=== PATIENT | female | born 1970 | race Caucasian/White ===

== ENCOUNTER 2024-12-03 18:10 | Outpatient (CLI) | payer OTHER, SELFPAY ==
--- NOTE | 2024-12-03 18:16 | XRR_ITS ---
PROCEDURE INFORMATION: Exam: XR Abdomen Exam date and time: 12/03/2024 6:39 PM Age: 54 years old Clinical indication: Palpable mass to umbilical area; Epigastric pain/ acid reflux; Abdominal pain; Constipation; HX umbilical hernia repair x 2 TECHNIQUE: Imaging protocol: Radiologic exam of the abdomen. Views: Frontal supine view of the abdomen. 1 View. COMPARISON: No relevant prior studies available. FINDINGS: Gastrointestinal tract: There is excessive colonic stool content. Consistent with constipation. Bones/joints: Unremarkable. XR/XR KUB [id number] IMPRESSION: There is excessive colonic stool content. Consistent with constipation.
== END 2024-12-03 18:11 | disposition home or self-care (01) ==
PROVIDERS: Family Provider Internal Medicine; PCP Internal Medicine; Visit Provider Registered Nurse Neonatal Intensive Care
DX: R10.9 Unspecified abdominal pain (principal); R93.89 Abnormal findings on diagnostic imaging of other specified body structures
CPT/HCPCS: 74018

== ENCOUNTER → 2025-02-08 09:37 | Outpatient (BNVA) | payer OTHER, SELFPAY | PROVIDERS: PCP Family Medicine; Visit Provider Family Medicine | DX: Z00.00 Encounter for general adult medical examination without abnormal findings (principal) | CPT/HCPCS: 80053; 80061; 84443; 85025 ==

== ENCOUNTER → 2025-03-05 16:21 | Outpatient (BNVA) | payer OTHER, SELFPAY | PROVIDERS: PCP Family Medicine; Visit Provider Family Medicine | DX: Z12.4 Encounter for screening for malignant neoplasm of cervix (principal) | CPT/HCPCS: 87624 ==

== ENCOUNTER 2025-03-13 07:55 | Day surgery (SDC) | payer OTHER, SELFPAY ==
[2025-03-13 08:15] VITALS: PULSE 76; RESP 18; TEMP 36.3; O2SAT 96; BMI 25.7
[2025-03-13 08:25] VITALS: BP 158/103
[2025-03-13] MEDS: sodium chloride 0.9% 1,000 ML 15 ML IV (08:25)
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
[2025-03-13 09:19] VITALS: BP 113/66; PULSE 60; RESP 18; TEMP 36.2; O2SAT 98
[2025-03-13 09:31] VITALS: BP 126/88; PULSE 68; RESP 18; O2SAT 99
[2025-03-13 09:46] VITALS: BP 139/84; PULSE 64; RESP 18; O2SAT 95
--- NOTE | 2025-03-13 09:50 | ANE.PACU2 ---
Inpatient post-anesthesia follow up: Airway intact: Yes Vital signs: Temperature 97.2 F Pulse Rate 64 Respiratory Rate 18 Blood Pressure 139/84 Pulse Oximetry 95 Oxygen Delivery Me thod Room Air Oxygen Flow Rate Fraction of Inspir ed Oxygen Hydration adequate: Yes Nausea and vomiting: No Pain level: 1 Mental status: Baseline
== END 2025-03-13 09:51 | disposition home or self-care (01) ==
PROVIDERS: PCP Family Medicine; Visit Provider Student in an Organized Health Care Education/Training Program
PROC: 0DJD8ZZ Inspection of Lower Intestinal Tract, Via Natural or Artificial Opening Endoscopic (ICD-10-PCS; CPT 45378; principal; 2025-03-13 09:00)
DX: Z12.11 Encounter for screening for malignant neoplasm of colon (principal); K57.30 Diverticulosis of large intestine without perforation or abscess without bleeding; J44.9 Chronic obstructive pulmonary disease, unspecified; K21.9 Gastro-esophageal reflux disease without esophagitis; E78.5 Hyperlipidemia, unspecified; F43.10 Post-traumatic stress disorder, unspecified; M79.7 Fibromyalgia; M19.90 Unspecified osteoarthritis, unspecified site; F17.200 Nicotine dependence, unspecified, uncomplicated; Z88.8 Allergy status to other drugs, medicaments and biological substances
CPT/HCPCS: 45378; J2704; J7030

== ENCOUNTER 2025-06-17 10:14 | Inpatient (IN) | payer OTHER, SELFPAY ==
[2025-06-17] VITALS (14 sets, daily range): BP systolic 109–175; BP diastolic 69–90; PULSE 55–76; RESP 15–20; TEMP 36.3–36.6; O2SAT 95–100; BMI 23.9
--- NOTE | 2025-06-17 10:18 | XRR_ITS ---
PROCEDURE INFORMATION: Exam: XR Chest Exam date and time: 06/17/2025 10:44 AM Age: 55 years old Clinical indication: Pain; Chest pressure; Additional info: Chest pain TECHNIQUE: Imaging protocol: Radiologic exam of the chest. Views: 1 view. COMPARISON: CR XR KUB [id number] 12/03/2024 6:39 PM FINDINGS: Lungs: Small linear opacity in the right mid chest, favored to represent subsegmental atelectasis. Minimal non consolidative infiltrate would be considered less likely. No consolidation. Pleural spaces: No pneumothorax. No significant pleural effusion. Heart/Mediastinum: The cardiac silhouette is normal in size. Bones/joints: There is no acute osseous abnormality. Focus of calcific tendinosis adjacent to the right proximal humerus. XR/XR chest 1V portable [id number] IMPRESSION: Small linear opacity in the right mid chest, favored to represent subsegmental atelectasis. Minimal non consolidative infiltrate would be considered less likely. No consolidation. Correlate with clinical presentation.
--- NOTE | 2025-06-17 10:20 | ECG_ITS ---
[facility] Date: 2025-06-17 Pat Name: Bisi Gentile Department: Room: Gender: Female Product Introduction Manager: : 1970 Requested By: Catarina Veras Order Number: [id number] Davida MD: Jesse South M.D. Measurements Intervals [place] Rate: 67 P: 31 HI: 155 QRS: 33 QRSD: 78 T: 28 QT: 380 QTc: 404 Interpretive Statements SINUS RHYTHM POSSIBLE OLD SEPTAL INFARCTION No previous ECG available for comparison Electronically Signed On 06-17-2025 21:54:37 CDT by Jesse South M.D. [email or web address] [id number]
--- OUTSIDE RECORDS SUMMARY | 2025-06-17 10:20 | XMS_ITS | Encounter Summary ---
Author Organization [facility] Address [address] [place] [address] Care Team Providers Care Corporate Intern Name Role Phone Ekaterina Ryan DO Primary Care Provider Encounter Details Date Type Department Care Team (Late st Contact Info) Description 10/24/2007 Outpatient Historical [facility] Family Medicine- [place] [address] [place] [address] Kyle Farmer MD [address] [place] [address] Social History Tobacco Use Types Packs/Day Years Used Date Smoking Tobacco: Never Assessed Comments Unknown Sex and Gender Information Value Date Recorded Sex Assigned at Not on file Legal Sex Female 5:00 AM DIRECTOR OF ESTATE Gender Identity Not on file Sexual Orientation Not on file documented as of this encounter Plan of Treatment Not on file documented as of this encounter Visit Diagnoses Not on filedocumented in this encounter Care Teams Corporate Intern Relationship Specialty Start Date End Date Ekaterina Ryan DO [address] [place] [address] PCP - General Family Practice 09/30/10 documented as of this encounter
--- OUTSIDE RECORDS SUMMARY | 2025-06-17 10:20 | XMS_ITS | Encounter Summary ---
Author Organization [employer] Address [address] [place] [address] Care Team Providers Care Rug Drying Machine Operator Name Role Phone Ekaterina Ryan DO Primary Care Provider Encounter Details Date Type Department Care Team (Latest Contact Info) Description 12/12/2003 Outpatient Historical [facility] Kwaku Mosley MD [address] [place], [place] [address] DIARRHEA NOS (Primary Dx) Social History Tobacco Use Types Packs/Day Years Used Date Smoking Tobacco: Never Assessed Comments Unknown Sex and Gender Information Value Date Recorded Sex Assigned at Not on file Legal Sex Female 5:00 AM CASTING ROOM OPERATOR Gender Identity Not on file Sexual Orientation Not on file documented as of this encounter Plan of Treatment Not on file documented as of this encounter Visit Diagnoses Diagnosis Diarrhea- Primary documented in this encounter Care Teams Rug Drying Machine Operator Relationship Specialty Start Date End Date Ekaterina Ryan DO [address] [place] [address] PCP - General Family Practice 09/30/10 documented as of this encounter
--- OUTSIDE RECORDS SUMMARY | 2025-06-17 10:20 | XMS_ITS | Encounter Summary ---
Author Organization [facility] Address [address] [place] [address] Care Team Providers Care Button Sewer Hand Name Role Phone Ekaterina Ryan DO Primary Care Provider Encounter Details Date Type Department Care Team (Latest Contact Info) Description 12/02/2005 Outpatient Historical [facility] General Surgery [address] [address] [place] [address] Terry Bentley MD [address] [facility], [address] [place], [place] [address] SURGERY FOLLOWUP NOS (Primary Dx) Social History Tobacco Use Types Packs/Day Years Used Date Smoking Tobacco: Never Assessed Comments Unknown Sex and Gender Information Value Date Recorded Sex Assigned at Not on file Legal Sex Female 5:00 AM SPORTS SPECIALIST Gender Identity Not on file Sexual Orientation Not on file documented as of this encounter Plan of Treatment Not on file documented as of this encounter Visit Diagnoses Diagnosis Follow-up examination, following unspecified surgery- Primary documented in this encounter Care Teams Button Sewer Hand Relationship Specialty Start Date End Date Ekaterina Ryan DO [address] [place] [phone] PCP - General Family Practice 09/30/10 documented as of this encounter
--- OUTSIDE RECORDS SUMMARY | 2025-06-17 10:20 | XMS_ITS | Encounter Summary ---
Author Organization [facility] Address [address] [place] [address] Care Team Providers Care Canine Deputy Name Role Phone Ekaterina Ryan DO Primary Care Provider Encounter Details Date Type Department Care Team (Latest Contact Info) Description 06/16/2006 Outpatient Historical [facility] Medicine- [place] [address] [place] [address] Simone Cruz MD NO ADDRESS ON FILE Other Symptoms Involving Abdomen and Pelvis (Primary Dx); Abdominal Pain, Unspecified Site Social History Tobacco Use Types Packs/Day Years Used Date Smoking Tobacco: Never Assessed Comments Unknown Sex and Gender Information Value Date Recorded Sex Assigned at Not on file Legal Sex Female 5:00 AM HAND RIVETER Gender Identity Not on file Sexual Orientation Not on file documented as of this encounter Plan of Treatment Not on file documented as of this encounter Visit Diagnoses Diagnosis Other symptoms involving abdomen and pelvis(789.9)- Primary Other symptoms involving abdomen and pelvis Abdominal pain, unspecified site documented in this encounter Care Teams Canine Deputy Relationship Specialty Start Date End Date Ekaterina Ryan DO [address] [facility] [place] [address] PCP - General Family Practice 09/30/10 documented as of this encounter
--- OUTSIDE RECORDS SUMMARY | 2025-06-17 10:20 | XMS_ITS | Encounter Summary ---
Author Organization [facility] Address [address] [place] [address] Care Team Providers Care Fender Repairer Name Role Phone Ekaterina Ryan DO Primary Care Provider [phone] Encounter Details Date Type Department Care Team (Latest Contact Info) Description 06/09/2005 Outpatient Historical [facility] General Surgery [address] [address] [place] [address] Terry Bentley MD [address] [facility], [address] [place], [place] [address] SURGERY FOLLOWUP NOS (Primary Dx) Social History Tobacco Use Types Packs/Day Years Used Date Smoking Tobacco: Never Assessed Comments Unknown Sex and Gender Information Value Date Recorded Sex Assigned at Not on file Legal Sex Female 5:00 AM PROGRAM OR PROJECT ADMINISTRATOR Gender Identity Not on file Sexual Orientation Not on file documented as of this encounter Plan of Treatment Not on file documented as of this encounter Visit Diagnoses Diagnosis Follow-up examination, following unspecified surgery- Primary documented in this encounter Care Teams Fender Repairer Relationship Specialty Start Date End Date Ekaterina Ryan DO [address] [place] [address] PCP - General Family Practice 09/30/10 documented as of this encounter
--- OUTSIDE RECORDS SUMMARY | 2025-06-17 10:20 | XMS_ITS | Encounter Summary ---
Author Organization [facility] Address [address] [place] [address] Care Team Providers Care Jig Builder Name Role Phone Ekaterina Ryan DO Primary Care Provider Encounter Details Date Type Department Care Team (Latest Contact Info) Description 08/25/2005 Outpatient Historical [facility] Medicine- [place] [address] [place] [address] Terry Bhakta MD [address] [place] [phone] SPASM OF MUSCLE (Primary Dx) Social History Tobacco Use Types Packs/Day Years Used Date Smoking Tobacco: Never Assessed Comments Unknown Sex and Gender Information Value Date Recorded Sex Assigned at Not on file Legal Sex Female 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
--- OUTSIDE RECORDS SUMMARY | 2025-06-17 10:20 | XMS_ITS | Encounter Summary ---
Author Organization [facility] Address [address] [place] [address] Care Team Providers Care Set Up And Lay Out Inspector Name Role Phone Ekaterina Ryan DO Primary Care Provider Encounter Details Date Type Department Care Team (Latest Contact Info) Description 12/07/2003 Outpatient Historical [facility] Kwaku Mosley MD [address] [place] [address] DIARRHEA NOS (Primary Dx); TOBACCO USE DISORDER Social History Tobacco Use Types Packs/Day Years Used Date Smoking Tobacco: Never Assessed Comments Unknown Sex and Gender Information Value Date Recorded Sex Assigned at Not on file Legal Sex Female 5:00 AM PRIMARY CARE PHYSICIAN Gender Identity Not on file Sexual Orientation Not on file documented as of this encounter Plan of Treatment Not on file documented as of this encounter Visit Diagnoses Diagnosis Diarrhea- Primary Tobacco use disorder documented in this encounter Care Teams Set Up And Lay Out Inspector Relationship Specialty Start Date End Date Ekaterina Ryan DO [address] [place] [address] PCP - General Family Practice 09/30/10 documented as of this encounter
--- OUTSIDE RECORDS SUMMARY | 2025-06-17 10:20 | XMS_ITS | Encounter Summary ---
Author Organization [facility] Address [address] [place] [address] Care Team Providers Care Special Education Classroom Aide Name Role Phone Ekaterina Ryan DO Primary Care Provider [phone] Encounter Details Date Type Department Care Team (Late st Contact Info) Description 11/03/2007 Outpatient Historical [facility] Family Medicine- [place] [address] [place] [address] Jayson Espinoza, RECEIVING TELLER [address] [place] [address] Social History Tobacco Use Types Packs/Day Years Used Date Smoking Tobacco: Never Assessed Comments Unknown Sex and Gender Information Value Date Recorded Sex Assigned at Not on file Legal Sex Female 5:00 AM ROVING DEPARTMENT SUPERVISOR Gender Identity Not on file Sexual Orientation Not on file documented as of this encounter Plan of Treatment Not on file documented as of this encounter Visit Diagnoses Not on filedocumented in this encounter Care Teams Special Education Classroom Aide Relationship Specialty Start Date End Date Ekaterina Ryan DO [address] [place] [address] PCP - General Family Practice 09/30/10 documented as of this encounter
--- OUTSIDE RECORDS SUMMARY | 2025-06-17 10:20 | XMS_ITS | Encounter Summary ---
Author Organization [facility] Address [address] [place] [address] Care Team Providers Care Jewelry Casting Model Maker Name Role Phone Ekaterina Ryan DO Primary Care Provider Encounter Details Date Type Department Care Team (Latest Contact Info) Description 02/03/2006 Outpatient Historical [facility] Medicine- [place] [address] [place] [address] Lane George, HOSPICE RN [address] [place] [address] Abdominal Pain, Unspecified Site (Primary Dx); Hepatomegaly; Other Malaise and Fatigue Social History Tobacco Use Types Packs/Day Years Used Date Smoking Tobacco: Never Assessed Comments Unknown Sex and Gender Information Value Date Recorded Sex Assigned at Not on file Legal Sex Female 5:00 AM ASSISTANT CONSTRUCTION SUPERINTENDENT Gender Identity Not on file Sexual Orientation Not on file documented as of this encounter Plan of Treatment Not on file documented as of this encounter Visit Diagnoses Diagnosis Abdominal pain, unspecified site- Primary Hepatomegaly Other malaise and fatigue documented in this encounter Care Teams Jewelry Casting Model Maker Relationship Specialty Start Date End Date Ekaterina Ryan DO [address] [place] [address] PCP - General Family Practice 09/30/10 documented as of this encounter
--- OUTSIDE RECORDS SUMMARY | 2025-06-17 10:20 | XMS_ITS | Encounter Summary ---
Author Organization [facility] Address [address] [place] [address] Care Team Providers Care Care Services Manager Name Role Phone Ekaterina Ryan DO Primary Care Provider Encounter Details Date Type Department Care Team (Latest Contact Info) Description 11/04/2005 Outpatient Historical [facility] General Surgery [address] [address] [place] [address] [place] [address] [facility] [address] [place] [address] ABDOMINAL PAIN EPIGASTRIC (Primary Dx) Social History Tobacco Use Types Packs/Day Years Used Date Smoking Tobacco: Never Assessed Comments Unknown Sex and Gender Information Value Date Recorded Sex Assigned at Not on file Legal Sex Female 5:00 AM STRUCTURAL IRON WORKER Gender Identity Not on file Sexual Orientation Not on file documented as of this encounter Plan of Treatment Not on file documented as of this encounter Visit Diagnoses Diagnosis Abdominal pain, epigastric- Primary documented in this encounter Care Teams Care Services Manager Relationship Specialty Start Date End Date Ekaterina Ryan DO [address] [place] [address] PCP - General Family Practice 09/30/10 documented as of this encounter
--- OUTSIDE RECORDS SUMMARY | 2025-06-17 10:20 | XMS_ITS | Encounter Summary ---
Author Organization [facility] Address [address] [place] [address] Care Team Providers Care Loading Checker Name Role Phone Ektaerina Ryan DO Primary Care Provider Encounter Details Date Type Department Care Team (Latest Contact Info) Description 04/11/2007 Outpatient Historical [facility] Orthopedics- [address] [place] [phone] Carlos Paige MD NO ADDRESS ON FILE Cervicalgia (Primary Dx); Degeneration of Cervical Intervertebral Disc; Lumbago; Pain in Joint, Shoulder Region Social History Tobacco Use Types Packs/Day Years Used Date Smoking Tobacco: Never Assessed Comments Unknown Sex and Gender Information Value Date Recorded Sex Assigned at Not on file Legal Sex Female 5:00 AM BIODIESEL TECHNOLOGY MANAGER Gender Identity Not on file Sexual Orientation Not on file documented as of this encounter Plan of Treatment Not on file documented as of this encounter Visit Diagnoses Diagnosis Cervicalgia- Primary Degeneration of cervical intervertebral disc Lumbago Pain in joint, shoulder region documented in this encounter Care Teams Loading Checker Relationship Specialty Start Date End Date Ekaterina Ryan DO [address] [place] [address] PCP - General Family Practice 09/30/10 documented as of this encounter
--- OUTSIDE RECORDS SUMMARY | 2025-06-17 10:20 | XMS_ITS | Encounter Summary ---
Author Organization [facility] Address [address] [place] [address] Care Team Providers Care Concert Or Lecture Hall Manager Name Role Phone Ekaterina Ryan DO Primary Care Provider [phone] Encounter Details Date Type Department Care Team (Latest Contact Info) Description 11/27/2003 Outpatient Historical [facility] Medicine- [place] [address] [place] [address] Terry Bhakta MD [address] [place] [phone] ABDOMINAL PAIN UNSPEC SITE (Primary Dx) Social History Tobacco Use Types Packs/Day Years Used Date Smoking Tobacco: Never Assessed Comments Unknown Sex and Gender Information Value Date Recorded Sex Assigned at Not on file Legal Sex Female 5:00 AM FINISHING ROOM OPERATOR Gender Identity Not on file Sexual Orientation Not on file documented as of this encounter Plan of Treatment Not on file documented as of this encounter Visit Diagnoses Diagnosis Abdominal pain, unspecified site- Primary documented in this encounter Care Teams Concert Or Lecture Hall Manager Relationship Specialty Start Date End Date Ekaterina Ryan DO [address] [facility] [place] [address] PCP - General Family Practice 09/30/10 documented as of this encounter
--- OUTSIDE RECORDS SUMMARY | 2025-06-17 10:20 | XMS_ITS | Encounter Summary ---
Author Organization [facility] Address [address] [place] [address] Care Team Providers Care Dining Car Conductor Name Role Phone Ekaterina Ryan DO Primary Care Provider Encounter Details Date Type Department Care Team (Latest Contact Info) Description 06/03/2005 Outpatient Historical [facility] General Surgery [address] [address] [address] [place] [address] Terry Bentley MD [address] [facility], [address] [place], [place] [address] Umbilical hernia (Primary Dx) Social History Tobacco Use Types Packs/Day Years Used Date Smoking Tobacco: Never Assessed Comments Unknown Sex and Gender Information Value Date Recorded Sex Assigned at Not on file 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
--- OUTSIDE RECORDS SUMMARY | 2025-06-17 10:20 | XMS_ITS | Encounter Summary ---
Author Organization [facility] Address [address] [place] [address] Care Team Providers Care Tree Farmer Name Role Phone Ekaterina Ryan DO Primary Care Provider Encounter Details Date Type Department Care Team (Latest Contact Info) Description 09/28/2005 Outpatient Historical [facility] Medicine- [place] [address] [place] [address] Terry Bhakta MD [address] [place] [phone] FEMALE GENITAL SYMPTOMS NOS (Primary Dx) Social History Tobacco Use Types Packs/Day Years Used Date Smoking Tobacco: Never Assessed Comments Unknown Sex and Gender Information Value Date Recorded Sex Assigned at Not on file 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
--- OUTSIDE RECORDS SUMMARY | 2025-06-17 10:20 | XMS_ITS | Encounter Summary ---
Author Organization [facility] Address [address] [place] [address] Care Team Providers Care Felt Tipping Machine Tender Name Role Phone Ekaterina Ryan Primary Care Provider [phone] Encounter Details Date Type Department Care Team (Latest Contact Info) Description 05/29/2005 Outpatient Historical [facility] [address] [place] [address] Terry Bhakta MD [address] [place] [address] ABDOMINAL PAIN UNSPEC SITE (Primary Dx) Social History Tobacco Use Types Packs/Day Years Used Date Smoking Tobacco: Never Assessed Comments Unknown Sex and Gender Information Value Date Recorded Sex Assigned at Not on file 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 Gender Identity Not on file Sexual Orientation Not on file documented as of this encounter Plan of Treatment Not on file documented as of this encounter Procedures Procedure Name Priority Date/Time Associated Diagnosis Comments COMPREHENSIVE METABOLIC PANEL Routine 05/29/2005 1:00 PM CDT documented in this encounter Results * COMPREHENSIVE METABOLIC PANEL (05/29/2005 1:00 PM CDT) GLUCOSE 92 70 - 110 mg/dL INTERFACE SYSTEM BUN 7 7 - 17 mg/dL INTERFACE SYSTEM CREATININE 0.7 0.7 - 1.2 mg/dL INTERFACE SYSTEM SODIUM 141 136 - 145 mEq/L INTERFACE SYSTEM POTASSIUM 3.7 3.5 - 5.0 mEq/L INTERFACE SYSTEM CO2 22 22 - 32 mmol/l INTERFACE SYSTEM CHLORIDE 109 95 - 110 mEq/L INTERFACE SYSTEM CALCIUM 9.3 8.4 - 10.5 mg/dL INTERFACE SYSTEM ALKALINE PHOSPHATASE 76 38 - 126 IU/L INTERFACE SYSTEM TOTAL PROTEIN 7.5 6.3 - 8.2 g/dL INTERFACE SYSTEM ALBUMIN 4.1 3.5 - 5.0 g/dL INTERFACE SYSTEM AST 27 14 - 36 IU/L INTERFACE SYSTEM ALT 23 9 - 52 IU/L INTERFACE SYSTEM BILIRUBIN TOTAL 0.8 0.2 - 1.4 mg/dL INTERFACE SYSTEM GLOBULIN (CALC) 3.4 2.4 - 3.9 g/dL INTERFACE SYSTEM ANION GAP 14 9 - 20 mEq/L INTERFACE SYSTEM ALBUMIN/GLOBULIN RATIO 1.2 1.0 - 2.3 INTERFACE SYSTEM OSMOLALITY, CALCULATED 287 275 - 295 mOsm/Kg INTERFACE SYSTEM 05/29/2005 1:00 PM CDT us Terry Bhakta MD CHEMISTRY ORDERABLES Final Res ult INTERFACE SYSTEM Refer to clinic/hospital department documented in this encounter Visit Diagnoses Diagnosis Abdominal pain, unspecified site- Primary documented in this encounter Care Teams Felt Tipping Machine Tender Relationship Specialty Start Date End Date Ekaterina Ryan DO [address] [place] [address] PCP - General Family Practice 09/30/10 documented as of this encounter
--- OUTSIDE RECORDS SUMMARY | 2025-06-17 10:20 | XMS_ITS | Encounter Summary ---
Author Organization [facility] Address [address] [place] [address] Care Team Providers Care Die Stamping Press Operator Name Role Phone Ekaterina Ryan DO Primary Care Provider Encounter Details Date Type Department Care Team (Latest Contact Info) Description 01/08/2004 Outpatient Historical [facility] Medicine- [place] [address] [place] [address] Terry Bhakta MD [address] [place] [phone] PYELONEPHRITIS NOS (Primary Dx) Social History Tobacco Use Types Packs/Day Years Used Date Smoking Tobacco: Never Assessed Comments Unknown Sex and Gender Information Value Date Recorded Sex Assigned at Not on file 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
--- OUTSIDE RECORDS SUMMARY | 2025-06-17 10:20 | XMS_ITS | Encounter Summary ---
Author Organization [facility] Address [address] [place] [address] Care Team Providers Care Clinical Trial Data Manager Name Role Phone Ekaterina Ryan DO Primary Care Provider Encounter Details Date Type Department Care Team (Latest Contact Info) Description 06/24/2005 Outpatient Historical [facility] General Surgery [address] [address] [address] [place] [address] Terry [place]ley MD [address] [facility], [address] [place], [place] [address] SURGERY FOLLOWUP NOS (Primary Dx) Social History Tobacco Use Types Packs/Day Years Used Date Smoking Tobacco: Never Assessed Comments Unknown Sex and Gender Information Value Date Recorded Sex Assigned at Not on file 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
--- OUTSIDE RECORDS SUMMARY | 2025-06-17 10:20 | XMS_ITS | Clinical Summary ---
Author Organization [facility] Address [address] [facility] [place] [address] Care Team Providers Care Centerless Grinder Tender Name Role Phone ConnorEkaterina bertrand Wilber LEMONS Primary Care Provider Allergies Active Allergy Reactions Criticality Noted Date Comments Tetanus Toxoid Swelling High 12/19/2018 Topiramate Anaphylaxis High 12/19/2018 Medications albuterol HFA 90 mcg inhalerIndication s:COPD with exacerbation ([facility]) INHALE 2 PUFFS BY MOUTH EVERY 6 HOURS NEEDED FOR SHORTNESS OF BREATH 8.5 Gram 11 1 Active fluconazole (DIFLUCAN) 100 mg tabletIndications :Antibiotic-induc ed yeast infection Take 1 Tablet (100 mg) by mouth daily. 2 Tablet 1 1 Active fluticasone propionate (FLONASE) 50 mcg/spray [place], Suspension nasal inhalerIndication s:Middle ear effusion, bilateral,Acute non-recurrent pansinusitis Administer 2 Sprays in each nostril daily. 16 Gram 1 Active Active Problems Problem Noted Date Diagnosed Date COPD with exacerbation 01/11/2019 Family History Medical History Relation Name Comments Heart Disease Brother 1 Heart Disease Brother 2 Heart Disease Brother 3 Heart Attack Father Alzheimer's Disease Maternal Grandmother No Known Problems Mother Unknown Sister 2 Relation Name Status Comments Brother 1 Brother 2 Brother 3 Alive Father Maternal Grandmother Mother Alive Sister 1 Alive Sister 2 Alive Sister 3 Alive Sister 4 Alive Social History Tobacco Use Types Packs/Day Years Used Date Smoking Tobacco: Former Cigarettes Smokeless Tobacco: Never Tobacco Cessation:Counseling Given: Yes Alcohol Use Standard Drinks/Week Comments No 0 (1 standard drink = 0.6 oz pur e alcohol) Comments No Sex and Gender Information Value Date Recorded Sex Assigned at Not on file 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 Gender Identity Not on file Sexual Orientation Not on file Last Filed Vital Signs Vital Sign Reading Time Taken Comments Blood Pressure 120/66 03/14/2021 11:16 AM CDT Pulse 87 03/14/2021 11:16 AM CDT Temperature 36.3 C (97.4 F) 03/14/2021 11:16 AM CDT Respiratory Rate 18 06/21/2019 2:03 PM CDT Oxygen Saturation 97% 03/14/2021 11:16 AM CDT Inhaled Oxygen Concentration - - Weight 60.3 kg (133 lb) 03/14/2021 11:16 AM CDT Height 157.5 cm (5' 2 ) 03/14/2021 11:16 AM CDT Body Mass Index 24.33 03/14/2021 11:16 AM CDT Plan of Treatment Health Maintenance Due Date Last Done Comments Pre-Diabetes and Diabetes Screening 1970 DTAP/TDAP/TD VACCINES (1 - Tdap) 1991 HEPATITIS B VACCINES (1 of 3 - 19+ 3-dose series) 03/19 HPV/Cotest (21-29) 1993 CERVICAL CANCER SCREENING 2002 HPV/Cotest (30-65) 2002 PAP SMEAR 2002 BREAST CANCER SCREENING 2012 COLORECTAL SCREENING 2017 Colorectal Cancer Screening 2017 FIT-DNA Q 3 years 2017 FIT/FOBT Q 1 year 2017 Flex Sig/CT Colonography Q 5 years 2017 ZOSTER VACCINE (1 of 2) 2022 INFLUENZA VACCINE (#1) 2025 03/07/2021 Care Teams Centerless Grinder Tender Relationship Specialty Start Date End Date Ekaterina Ryan DO [address] [place] [address] PCP - General Family Practice 09/30/10
--- OUTSIDE RECORDS SUMMARY | 2025-06-17 10:20 | XMS_ITS | Encounter Summary ---
Author Organization [email or web address] Address [address] [place] [address] Care Team Providers Care Keller Machine Operator Name Role Phone Ekaterina Ryan DO Primary Care Provider Encounter Details Date Type Department Care Team (Late st Contact Info) Description 11/11/2005 Outpatient Historical [facility] McTerry fields MD [address] [facility], [address] [place], [place] [address] Social History Tobacco Use Types Packs/Day Years Used Date Smoking Tobacco: Never Assessed Comments Unknown Sex and Gender Information Value Date Recorded Sex Assigned at Not on file Legal Sex Female 5:00 AM QC LAB TECHNICIAN Gender Identity Not on file Sexual Orientation Not on file documented as of this encounter Plan of Treatment Not on file documented as of this encounter Procedures Procedure Name Priority Date/Time Associated Diagnosis Comments CT ABDOMEN PELVIS W CONTRAST Routine 11/11/2005 8:45 AM QC LAB TECHNICIAN documented in this encounter Results * CT ABDOMEN PELVIS W CONTRAST (11/11/2005 8:45 AM QC LAB TECHNICIAN) Anatomical Region Laterality Modality Abdomen Other 11/11/2005 8:45 AM QC LAB TECHNICIAN Narrative 11/11/2005 8:45 AM QC LAB TECHNICIAN CT ABDOMEN AND PELVIS: 11-11-05 CLINICAL INFORMATION - Abdominal pain. FINDINGS: CT of the abdomen and pelvis was performed with administration of oral and intravenous contrast (125 ml of Optiray 320). No old studies are available for comparison at the time of review. There is probable fatty infiltration of the liver, diagnosis of limited specificity on contrast enhanced CT. The gallbladder, spleen, pancreas, adrenals, and kidneys are within normal limits. There is no evidence of adenopathy or ascites. Small uterine cyst is noted. The uterus is retroverted. The bladder is unremarkable. Sections through the lung bases demonstrate no significant pathology. Peripherally sclerotic low attenuation structure in the right femoral neck most likely represents an old pin tract from prior orthopedic hardware. Findings suggestive of fatty infiltration of the liver, diagnosis of limited specificity on contrast enhanced CT. Unenhanced CT or MRI of the liver could be performed for more specific assessment if clinically warranted. [facility] D: 11-11-05 0959 Dictated By: Rubin Chowdary M.D. Electronically Signed By: Rubin Chowdary M.D. Date Signed: 11/11/05 Procedure Note 09/05/2009 CT ABDOMEN AND PELVIS: 11-11-05 CLINICAL INFORMATION - Abdominal pain. FINDINGS: CT of the abdomen and pelvis was performed with administration of oral andintravenous contrast (125 ml of Optiray 320). No old studies are available for comparison at the timeof review. There is probable fatty infiltration of the liver, diagnosis of limitedspecificity on contrast enhanced CT. The gallbladder, spleen, pancreas, adrenals, and kidneys are withinnormal limits. There is no evidence of adenopathy or ascites. Small uterine cyst is noted. Theuterus is retroverted. The bladder is unremarkable. Sections through the lung bases demonstrate nosignificant pathology. Peripherally sclerotic low attenuation structure in the right femoral neck most likelyrepresents an old pin tract from prior orthopedic hardware. Findings suggestive of fatty infiltration of the liver, diagnosis oflimited specificity on contrast enhanced CT. Unenhanced CT or MRI of the liver could be performed formore specific assessment if clinically warranted. [facility] D: 11-11-05 0959 Dictated By: Rubin Chowdary M.D. Electronically Signed By: Rubin Chowdary M.D. Date Signed: 11/11/05 us Terry [place]ley MD CT ORDERABLES Final Result documented in this encounter Visit Diagnoses Not on filedocumented in this encounter Care Teams Keller Machine Operator Relationship Specialty Start Date End Date Ekaterina Ryan DO [address] [place] [phone] PCP - General Family Practice 09/30/10 documented as of this encounter
--- OUTSIDE RECORDS SUMMARY | 2025-06-17 10:20 | XMS_ITS | Encounter Summary ---
Author Organization [facility] Address [address] [place] [address] Care Team Providers Care Traveling Engineer Name Role Phone Ekaterina Ryan DO Primary Care Provider Encounter Details Date Type Department Care Team (Latest Contact Info) Description 07/07/2005 Outpatient Historical [facility] General Surgery [address] [address] [address] [place] [address] Terry [place]ley MD [address] [facility], [address] [place] [address] SURGERY FOLLOWUP NOS (Primary Dx) Social History Tobacco Use Types Packs/Day Years Used Date Smoking Tobacco: Never Assessed Comments Unknown Sex and Gender Information Value Date Recorded Sex Assigned at Not on file 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
--- OUTSIDE RECORDS SUMMARY | 2025-06-17 10:20 | XMS_ITS | Encounter Summary ---
Author Organization [facility] Address [address] [place] [address] Care Team Providers Care Fire Extinguisher Mechanic Name Role Phone Ekaterina Ryan DO Primary Care Provider Encounter Details Date Type Department Care Team (Latest Contact Info) Description 05/19/2006 Outpatient Historical [facility] Family Medicine- [place] [address] [place] [address] Simone Cruz MD NO ADDRESS ON FILE Inflam Disease of Breast (Primary Dx); Irregular Menstruation Social History Tobacco Use Types Packs/Day Years Used Date Smoking Tobacco: Never Assessed Comments Unknown Sex and Gender Information Value Date Recorded Sex Assigned at Not on file Legal Sex Female 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
--- OUTSIDE RECORDS SUMMARY | 2025-06-17 10:20 | XMS_ITS | Encounter Summary ---
Author Organization [facility] Address [address] [place] [address] Care Team Providers Care Motion Picture Camera Operator Name Role Phone Ekaterina Ryan DO Primary Care Provider Encounter Details Date Type Department Care Team (Latest Contact Info) Description 03/02/2006 Outpatient Historical [facility] Gen Spec Surg [address] [place] [address] Serge Flores MD [address] [place] [address] Umbilical Hernia (Primary Dx) Social History Tobacco Use Types Packs/Day Years Used Date Smoking Tobacco: Never Assessed Comments Unknown Sex and Gender Information Value Date Recorded Sex Assigned at Not on file Legal Sex Female 5:00 AM CHILD NEUROLOGIST Gender Identity Not on file Sexual Orientation Not on file documented as of this encounter Plan of Treatment Not on file documented as of this encounter Visit Diagnoses Diagnosis Umbilical hernia- Primary Umbilical hernia without mention of obstruction or gangrene documented in this encounter Care Teams Motion Picture Camera Operator Relationship Specialty Start Date End Date Ekaterina Ryan DO [address] [place] [address] PCP - General Family Practice 09/30/10 documented as of this encounter
--- OUTSIDE RECORDS SUMMARY | 2025-06-17 10:20 | XMS_ITS | Encounter Summary ---
Author Organization [facility] Address [address] [place] [address] Care Team Providers Care Brass Bobbin Winder Name Role Phone Ekaterina Ryan DO Primary Care Provider [phone] Encounter Details Date Type Department Care Team (Late st Contact Info) Description 11/10/2007 Outpatient Historical [facility] Family Medicine- [place] [address] [place] [address] Jayson Espinoza, BUSINESS CONTINUITY STRATEGY DIRECTOR [address] [place] [address] Social History Tobacco Use Types Packs/Day Years Used Date Smoking Tobacco: Never Assessed Comments Unknown Sex and Gender Information Value Date Recorded Sex Assigned at Not on file Legal Sex Female 5:00 AM HEARING EXAMINER Gender Identity Not on file Sexual Orientation Not on file documented as of this encounter Plan of Treatment Not on file documented as of this encounter Visit Diagnoses Not on filedocumented in this encounter Care Teams Brass Bobbin Winder Relationship Specialty Start Date End Date Ekaterina Ryan DO [address] [place] [address] PCP - General Family Practice 09/30/10 documented as of this encounter
--- OUTSIDE RECORDS SUMMARY | 2025-06-17 10:20 | XMS_ITS | Encounter Summary ---
Author Organization [facility] Address [address] [place] [address] Care Team Providers Care Instructor Ballroom Dancing Name Role Phone Ekaterina Ryan DO Primary Care Provider Encounter Details Date Type Department Care Team (Latest Contact Info) Description 12/28/2006 Outpatient Historical [facility] Family Medicine- [place] [address] [place] [address] Simone Cruz MD NO ADDRESS ON FILE Headache (Primary Dx) Social History Tobacco Use Types Packs/Day Years Used Date Smoking Tobacco: Never Assessed Comments Unknown Sex and Gender Information Value Date Recorded Sex Assigned at Not on file Legal Sex Female 5: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
--- OUTSIDE RECORDS SUMMARY | 2025-06-17 10:20 | XMS_ITS | Encounter Summary ---
Author Organization [facility] Address [address] [place] [address] Care Team Providers Care Umbrella Tipper Hand Name Role Phone Ekaterina Ryan DO Primary Care Provider Encounter Details Date Type Department Care Team (Latest Contact Info) Description 06/02/2005 Outpatient Historical [facility] General Surgery [address] [address] [address] [place] [address] Terry [place]ley MD [address] [facility], [address] [place], [place] [address] Umbilical hernia (Primary Dx) Social History Tobacco Use Types Packs/Day Years Used Date Smoking Tobacco: Never Assessed Comments Unknown Sex and Gender Information Value Date Recorded Sex Assigned at Not on file 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
--- OUTSIDE RECORDS SUMMARY | 2025-06-17 10:20 | XMS_ITS | Encounter Summary ---
Author Organization [facility] Address [address] [place] [address] Care Team Providers Care Turbine Inspector Name Role Phone Ekaterina Ryan DO Primary Care Provider Encounter Details Date Type Department Care Team (Latest Contact Info) Description 05/31/2006 Outpatient Historical [facility] Ophthalmology [address] [place] [phone] Khalif Fallon MD NO ADDRESS ON FILE Vitreous Degeneration (Primary Dx) Social History Tobacco Use Types Packs/Day Years Used Date Smoking Tobacco: Never Assessed Comments Unknown Sex and Gender Information Value Date Recorded Sex Assigned at Not on file Legal Sex Female 5:00 AM CREDIT ADMINISTRATION OFFICER Gender Identity Not on file Sexual Orientation Not on file documented as of this encounter Plan of Treatment Not on file documented as of this encounter Visit Diagnoses Diagnosis Vitreous degeneration- Primary documented in this encounter Care Teams Turbine Inspector Relationship Specialty Start Date End Date Ekaterina Ryan DO [address] [place] [address] PCP - General Family Practice 09/30/10 documented as of this encounter
--- OUTSIDE RECORDS SUMMARY | 2025-06-17 10:20 | XMS_ITS | Encounter Summary ---
Author Organization [facility] Address [address] [place] [address] Care Team Providers Care Drywaller Name Role Phone Ekaterina Ryan DO Primary Care Provider Encounter Details Date Type Department Care Team (Latest Contact Info) Description 01/08/2004 Outpatient Historical [facility]- [place] [address] [place] [address] Terry Bhakta MD [address] [place] [phone] PYELONEPHRITIS NOS (Primary Dx) Social History Tobacco Use Types Packs/Day Years Used Date Smoking Tobacco: Never Assessed Comments Unknown Sex and Gender Information Value Date Recorded Sex Assigned at Not on file Legal Sex Female 5:00 AM MAGAZINE DESIGNER Gender Identity Not on file Sexual Orientation Not on file documented as of this encounter Plan of Treatment Not on file documented as of this encounter Visit Diagnoses Diagnosis Pyelonephritis, unspecified- Primary documented in this encounter Care Teams Drywaller Relationship Specialty Start Date End Date Ekaterina Ryan DO [address] [facility] [place] [address] PCP - General Family Practice 09/30/10 documented as of this encounter
--- OUTSIDE RECORDS SUMMARY | 2025-06-17 10:20 | XMS_ITS | Encounter Summary ---
Author Organization [facility] Address [address] [place] [address] Care Team Providers Care Oval Or Circular Glass Cutter Name Role Phone Ekaterina Ryan DO Primary Care Provider Encounter Details Date Type Department Care Team (Latest Contact Info) Description 03/08/2006 Outpatient Historical [facility] [address] [facility] [address] [place] [address] Topher Roy MD NO ADDRESS ON FILE Other Sign and Symptom in Breast (Primary Dx) Social History Tobacco Use Types Packs/Day Years Used Date Smoking Tobacco: Never Assessed Comments Unknown Sex and Gender Information Value Date Recorded Sex Assigned at Not on file Legal Sex Female 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
--- OUTSIDE RECORDS SUMMARY | 2025-06-17 10:20 | XMS_ITS | Clinical Summary ---
Author Organization [facility] Address [address] [facility] Attn: Epic Prelude ADT ANITRA CANO [address] Care Team Providers Care Entry Examiner Name Role Phone ConnorEkaterina bertrand Wilber LEMONS Primary Care Provider Allergies Active Allergy Reactions Criticality Noted Date Comments Bee Venom Protein (Honey Bee) Anaphylaxis High 06/01 [place] Anaphylaxis High 06/01/2023 Tetanus Toxoid Swelling High 12/19/2018 Topiramate Anaphylaxis High 12/19/2018 Medications albuterol sulfate HFA 90 mcg/actuation aerosol inhalerIndicatio ns:COPD with exacerbation ([facility]) Take 2 Puffs by inhalation every 4 hours as needed for Shortness of Breath or Wheezing. 8.5 Gram 5 3 Active fluticasone propionate (FLONASE) 50 mcg/spray [place], Suspension nasal inhalerIndicatio ns:Non-recurrent acute serous otitis media of right ear Administer 2 Sprays in each nostril daily. 16 Gram 3 3 Active Additional Information Patient not taking.Reported on 12/05/2024 loratadine (CLARITIN) 10 mg tabletIndication s:Non-recurrent acute serous otitis media of right ear Take 1 Tablet (10 mg) by mouth daily. 90 Tablet 2 3 Active Additional Information Patient not taking.Reported on 12/05/2024 azelastine (ASTELIN) 137 mcg/actuation nasal sprayIndications :Bilateral otitis media with effusion,Acute dysfunction of right eustachian tube Administer 1 Mora in each nostril 2 times daily. 30 mL 3 3 Active Additional Information Patient not taking.Reported on 12/05/2024 astaxanthin 12 mg Capsule Take 12 mg by mouth daily. Active dicyclomine (BENTYL) 20 mg tabletIndication s:Irritable bowel syndrome with constipation Take 1 Tablet (20 mg) by mouth 4 times daily before meals and at bedtime. 120 Tablet 3 5 Active polyethylene glycol (MIRALAX) 17 gram Powder in PacketIndication s:Irritable bowel syndrome with constipation Take 1 Packet (17 Grams) by mouth 2 times daily as needed for Constipation. 90 Packet 3 5 Active sodium phosphates (FLEET ADULT) 19-7 gram/118 mL EnemaIndications :Slow transit constipation Insert 133 mL by rectum 1 time daily as needed for Constipation. 399 mL 2 5 Active Active Problems Problem Noted Date Diagnosed Date History of umbilical hernia repair 12/05/2024 Irritable bowel syndrome with constipation 12/05 Mixed simple and mucopurulent chronic bronchitis 12/05/2024 Resolved Problems Problem Noted Date Diagnosed Date Resolved Date Slow transit constipation 12/05/2024 COPD with exacerbation 01/11/201912/05 Encounters Date Type Department Care Team Description 05/23/2025 External Device Data [facility] ABSTRACTION Provider, Abstract 05/22/2025 External Device Data [place] ABSTRACTION Provider, Abstract 05/02/2025 External Device Data [place] ABSTRACTION Provider, Abstract 05/01/2025 External Device Data [place] ABSTRACTION Provider, Abstract 04/04/2025 External Device Data [place] ABSTRACTION Provider, Abstract 04/03/2025 External Device Data [place] ABSTRACTION Provider, Abstract 04/03/2025 External Device Data [place] ABSTRACTION Provider, Abstract from Last 3 Months Family History Medical History Relation Name Comments Heart Disease Brother 1 Heart Disease Brother 2 Heart Disease Brother 3 Heart Attack Father Alzheimer's Disease Maternal Grandmother No Known Problems Mother Unknown Sister 1 Relation Name Status Comments Brother 1 Brother 2 Alive Brother 3 Father Maternal Grandmother Mother Alive Sister 1 [...] at Not on file Legal Sex Female 2:41 AM ACCOUNT EXECUTIVE AGRIBUSINESS Gender Identity Not on file Sexual Orientation Not on file Last Filed Vital Signs Vital Sign Reading Time Taken Comments Blood Pressure 122/66 12/05/2024 10:44 AM ACCOUNT EXECUTIVE AGRIBUSINESS Pulse 88 12/05/2024 10:44 AM ACCOUNT EXECUTIVE AGRIBUSINESS Temperature 36.6 C (97.8 F) 12/05/2024 10:44 AM ACCOUNT EXECUTIVE AGRIBUSINESS Respiratory Rate 17 12/05/2024 10:44 AM ACCOUNT EXECUTIVE AGRIBUSINESS Oxygen Saturation 98% 12/05/2024 10:44 AM ACCOUNT EXECUTIVE AGRIBUSINESS Inhaled Oxygen Concentration - - Weight 68.6 kg (151 lb 3.2 oz) 12/05/2024 10:44 AM ACCOUNT EXECUTIVE AGRIBUSINESS Height 160 cm (5' 3 ) 12/05/2024 10:44 AM ACCOUNT EXECUTIVE AGRIBUSINESS Body Mass Index 26.78 12/05/2024 10:44 AM ACCOUNT EXECUTIVE AGRIBUSINESS Plan of Treatment Health Maintenance Due Date [...] 2017 ZOSTER VACCINE (1 of 2) 2022 Preventative Visit- Commercial 10/18/2024 INFLUENZA VACCINE (#1) 2025 03/07/2021 Insurance [employer] [id number] [address] [id number] Care Teams Entry Examiner Relationship Specialty Start Date End Date Ekaterina Ryan DO [address] [place] [address] PCP - General Family Practice 09/30/10
--- OUTSIDE RECORDS SUMMARY | 2025-06-17 10:20 | XMS_ITS | Encounter Summary ---
Author Organization [facility] Address [address] [place] [address] Care Team Providers Care Prestressed Concrete Laborer Name Role Phone Ekaterina Ryan DO Primary Care Provider Encounter Details Date Type Department Care Team (Latest Contact Info) Description 05/29/2005 Outpatient Historical [facility]- [place] [address] [place] [address] Terry Bhakta MD [address] [place] [phone] ABDOMINAL PAIN UNSPEC SITE (Primary Dx) Social History Tobacco Use Types Packs/Day Years Used Date Smoking Tobacco: Never Assessed Comments Unknown Sex and Gender Information Value Date Recorded Sex Assigned at Not on file 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
--- OUTSIDE RECORDS SUMMARY | 2025-06-17 10:20 | XMS_ITS | Encounter Summary ---
Author Organization [facility] Address [address] [place] [address] Care Team Providers Care Poultry Inseminator Name Role Phone Ekaterina Ryan DO Primary Care Provider [phone] Encounter Details Date Type Department Care Team (Latest Contact Info) Description 07/23/2006 Outpatient Historical [facility]- [place] [address] [place] [address] Simone Cruz MD NO ADDRESS ON FILE Influenza with Other Respiratory Manifestations (Primary Dx) Social History Tobacco Use Types Packs/Day Years Used Date Smoking Tobacco: Never Assessed Comments Unknown Sex and Gender Information Value Date Recorded Sex Assigned at Not on file Legal Sex Female 5:00 AM WATER OPERATOR Gender Identity Not on file Sexual Orientation Not on file documented as of this encounter Plan of Treatment Not on file documented as of this encounter Visit Diagnoses Diagnosis Influenza with other respiratory manifestations- Primary documented in this encounter Care Teams Poultry Inseminator Relationship Specialty Start Date End Date Ekaterina Ryan DO [address] [place] [facility] [place] [address] PCP - General Family Practice 09/30/10 documented as of this encounter
--- OUTSIDE RECORDS SUMMARY | 2025-06-17 10:20 | XMS_ITS | Encounter Summary ---
Author Organization [facility] Address [address] [place] [address] Care Team Providers Care E Learning Developer Name Role Phone Ekaterina Ryan DO Primary Care Provider [phone] Encounter Details Date Type Department Care Team (Latest Contact Info) Description 11/18/2005 Outpatient Historical [facility] General Surgery [address] [address] [address] [place] [address] Terry Bentley MD [address] [facility], [address] [place], [place] [address] ABDOMINAL PAIN OTHER SPEC SITE (Primary Dx) Social History Tobacco Use Types Packs/Day Years Used Date Smoking Tobacco: Never Assessed Comments Unknown Sex and Gender Information Value Date Recorded Sex Assigned at Not on file Legal Sex Female 5:00 AM CRM DEVELOPER Gender Identity Not on file Sexual Orientation Not on file documented as of this encounter Plan of Treatment Not on file documented as of this encounter Visit Diagnoses Diagnosis Abdominal pain, other specified site- Primary documented in this encounter Care Teams E Learning Developer Relationship Specialty Start Date End Date Ekaterina Ryan DO [address] [place] [address] PCP - General Family Practice 09/30/10 documented as of this encounter
--- OUTSIDE RECORDS SUMMARY | 2025-06-17 10:20 | XMS_ITS | Encounter Summary ---
Author Organization [facility] Address [address] [place] [address] Care Team Providers Care Swimming Pool Installer And Servicer Name Role Phone Ekaterina Ryan DO Primary Care Provider Encounter Details Date Type Department Care Team (Latest Contact Info) Description 05/13/2006 Outpatient Historical [facility] Family Medicine- [place] [address] [place] [address] Simone Cruz MD NO ADDRESS ON FILE Headache (Primary Dx); Esophageal Reflux Social History Tobacco Use Types Packs/Day Years Used Date Smoking Tobacco: Never Assessed Comments Unknown Sex and Gender Information Value Date Recorded Sex Assigned at Not on file Legal Sex Female 5:00 AM CURRICULUM COACH Gender Identity Not on file Sexual Orientation Not on file documented as of this encounter Plan of Treatment Not on file documented as of this encounter Visit Diagnoses Diagnosis Headache(784.0)- Primary Headache Esophageal reflux documented in this encounter Care Teams Swimming Pool Installer And Servicer Relationship Specialty Start Date End Date Ekaterina Ryan DO [address] [facility] [place] [phone] PCP - General Family Practice 09/30/10 documented as of this encounter
--- OUTSIDE RECORDS SUMMARY | 2025-06-17 10:20 | XMS_ITS | Encounter Summary ---
Author Organization [facility] Address [address] [place] [address] Care Team Providers Care Price Checker Name Role Phone Ekaterina Ryan DO Primary Care Provider [phone] Encounter Details Date Type Department Care Team (Latest Contact Info) Description 11/27/2003 Outpatient Historical [facility] Medicine- [place] [address] [place] [address] Terry Bhakta MD [address] [place] [phone] ABDOMINAL PAIN OTHER SPEC SITE (Primary Dx) Social History Tobacco Use Types Packs/Day Years Used Date Smoking Tobacco: Never Assessed Comments Unknown Sex and Gender Information Value Date Recorded Sex Assigned at Not on file Legal Sex Female 5:00 AM INSULATION INSPECTOR Gender Identity Not on file Sexual Orientation Not on file documented as of this encounter Plan of Treatment Not on file documented as of this encounter Visit Diagnoses Diagnosis Abdominal pain, other specified site- Primary documented in this encounter Care Teams Price Checker Relationship Specialty Start Date End Date Ekaterina Ryan DO [address] [place] [facility] [place] [address] PCP - General Family Practice 09/30/10 documented as of this encounter
--- OUTSIDE RECORDS SUMMARY | 2025-06-17 10:20 | XMS_ITS | Encounter Summary ---
Author Organization [facility] Address [address] [place] [address] Care Team Providers Care Help Desk Agent Name Role Phone Ekaterina Ryan DO Primary Care Provider Encounter Details Date Type Department Care Team (Latest Contact Info) Description 02/09/2006 Outpatient Historical [facility] General Surgery [address] [address] [address] [place] [address] Terry Bentley MD [address] [facility], [address] [place], [place] [address] Follow-Up Examination, Following Unspecified Surgery (Primary Dx) Social History Tobacco Use Types Packs/Day Years Used Date Smoking Tobacco: Never Assessed Comments Unknown Sex and Gender Information Value Date Recorded Sex Assigned at Not on file Legal Sex Female 5:00 AM BIOCHEMIST Gender Identity Not on file Sexual Orientation Not on file documented as of this encounter Plan of Treatment Not on file documented as of this encounter Visit Diagnoses Diagnosis Follow-up examination, following unspecified surgery- Primary documented in this encounter Care Teams Help Desk Agent Relationship Specialty Start Date End Date Ekaterina Ryan DO [address] [place] [phone] PCP - General Family Practice 09/30/10 documented as of this encounter
--- OUTSIDE RECORDS SUMMARY | 2025-06-17 10:20 | XMS_ITS | Encounter Summary ---
Author Organization [facility] Address [address] [place] [address] Care Team Providers Care Cafeteria Table Attendant Name Role Phone Ekaterina Ryan DO Primary Care Provider Encounter Details Date Type Department Care Team (Latest Contact Info) Description 05/04/2006 Outpatient Historical [facility] Medicine- [place] [address] [place] [address] Simone Cruz MD NO ADDRESS ON FILE Headache (Primary Dx); Unspecified Visual Disturbance; Diarrhea; Esophageal Reflux Social History Tobacco Use Types Packs/Day Years Used Date Smoking Tobacco: Never Assessed Comments Unknown Sex and Gender Information Value Date Recorded Sex Assigned at Not on file Legal Sex Female 5:00 AM HANDER IN Gender Identity Not on file Sexual Orientation Not on file documented as of this encounter Plan of Treatment Not on file documented as of this encounter Visit Diagnoses Diagnosis Headache(784.0)- Primary Headache Unspecified visual disturbance Diarrhea Esophageal reflux documented in this encounter Care Teams Cafeteria Table Attendant Relationship Specialty Start Date End Date Ekaterina Ryan DO [address] [facility] [place] [address] PCP - General Family Practice 09/30/10 documented as of this encounter
--- OUTSIDE RECORDS SUMMARY | 2025-06-17 10:20 | XMS_ITS | Encounter Summary ---
Author Organization [facility] Address [address] [place] [address] Care Team Providers Care Pitting Machine Operator Name Role Phone Ekaterina Ryan Primary Care Provider Encounter Details Date Type Department Care Team (Latest Contact Info) Description 02/03/2006 Outpatient [facility] [address] [place] [address] Lane George, MASTER CONTROL TECHNICIAN [address] [place] [address] Hepatomegaly (Primary Dx) Social History Tobacco Use Types Packs/Day Years Used Date Smoking Tobacco: Never Assessed Comments Unknown Sex and Gender Information Value Date Recorded Sex Assigned at Not on file Legal Sex Female 5:00 AM FOOD SERVICE LEAD Gender Identity Not on file Sexual Orientation Not on file documented as of this encounter Plan of Treatment Not on file documented as of this encounter Procedures Procedure Name Priority Date/Time Associated Diagnosis Comments ACUTE HEPATITIS PANEL Routine 02/03/2006 10:04 AM CDT documented in this encounter Results * ACUTE HEPATITIS PANEL (02/03/2006 10:04 AM CDT) HEPATITIS B SURFACE AG Negative Negative INTERFACE SYSTEM HEPATITIS B CORE IGM Negative Negative INTERFACE SYSTEM HEPATITIS A IGM Negative Negative INTE RFACE SYSTEM HEPATITIS C AB Negative Negative INTER FACE SYSTEM Comment: HCV antibody testing is performed by E.I.A. methodology. CDC recommends positive HCV antibody tests have confirmation testing. Low positive results should be confirmed with RIBA. This will determine if results are false positive. If a high positive result is obtained an HCV RNA may be run. The RNA test confirms infection and the level of the RNA, to some extent, helps guide treatment. The same specimen can be used for RIBA and will be held for 7 days. Please contact the Immunology lab if RIBA testing is desired. However, if HCV RNA testing is desired, a new specimen must be collected. Blood should be collected in SST (serum) or EDTA (plasma) separation tubes. Separate serum or plasma from whole blood within 6 hours of collection. Serum or plasma can be transported at refrigerated temperature or frozen and transported. 02/03/2006 10:0 4 AM CDT us Historical Provider CHEMISTRY ORDERABLES Final R esult INTERFACE SYSTEM Refer to clinic/hospital department documented in this encounter Visit Diagnoses Diagnosis Hepatomegaly- Primary documented in this encounter Care Teams Pitting Machine Operator Relationship Specialty Start Date End Date Ekaterina Ryan DO [address] [place] [address] PCP - General Family Practice 09/30/10 documented as of this encounter
--- OUTSIDE RECORDS SUMMARY | 2025-06-17 10:20 | XMS_ITS | Encounter Summary ---
Author Organization [facility] Address [address] [place] [address] Care Team Providers Care Warehouse Hand Name Role Phone Ekaterina Ryan DO Primary Care Provider Encounter Details Date Type Department Care Team (Latest Contact Info) Description 03/08/2006 Outpatient Historical [facility] Hilary Dewey MD [address] [place] [phone] Lump or Mass in Breast (Primary Dx) Social History Tobacco Use Types Packs/Day Years Used Date Smoking Tobacco: Never Assessed Comments Unknown Sex and Gender Information Value Date Recorded Sex Assigned at Not on file Legal Sex Female 5:00 AM AUTOCLAVE OPERATOR Gender Identity Not on file Sexual Orientation Not on file documented as of this encounter Plan of Treatment Not on file documented as of this encounter Visit Diagnoses Diagnosis Lump or mass in breast- Primary documented in this encounter Care Teams Warehouse Hand Relationship Specialty Start Date End Date Ekaterina Ryan DO [address] [place] [address] PCP - General Family Practice 09/30/10 documented as of this encounter
--- OUTSIDE RECORDS SUMMARY | 2025-06-17 10:20 | XMS_ITS | Encounter Summary ---
Author Organization [employer] [facility] Address [address] [place] [address] Care Team Providers Care Plating Operator Name Role Phone Ekaterina Ryan DO Primary Care Provider Encounter Details Date Type Department Care Team (Latest Contact Info) Description 02/09/2006 Outpatient Historical [facility] [address] [place] [address] Terry Bentley MD [address] [facility], [address] [place], [place] [address] Follow-Up Examination, Following Unspecified Surgery (Primary Dx) Social History Tobacco Use Types Packs/Day Years Used Date Smoking Tobacco: Never Assessed Comments Unknown Sex and Gender Information Value Date Recorded Sex Assigned at Not on file Legal Sex Female 5:00 AM CAMPAIGN MANAGEMENT SPECIALIST Gender Identity Not on file Sexual Orientation Not on file documented as of this encounter Plan of Treatment Not on file documented as of this encounter Visit Diagnoses Diagnosis Follow-up examination, following unspecified surgery- Primary documented in this encounter Care Teams Plating Operator Relationship Specialty Start Date End Date Ekaterina Ryan DO [address] [place] [address] PCP - General Family Practice 09/30/10 documented as of this encounter
--- OUTSIDE RECORDS SUMMARY | 2025-06-17 10:20 | XMS_ITS | Encounter Summary ---
Author Organization [facility] Address [address] [place] [address] Care Team Providers Care Commercial Mortgage Broker Name Role Phone Ekaterina Ryan DO Primary Care Provider Encounter Details Date Type Department Care Team (Late st Contact Info) Description 02/19/2006 Outpatient Historical [facility] Family Medicine- [place] [address] [place] [address] Social History Tobacco Use Types Packs/Day Years Used Date Smoking Tobacco: Never Assessed Comments Unknown Sex and Gender Information Value Date Recorded Sex Assigned at Not on file Legal Sex Female 5:00 AM CAPSULE MACHINE OPERATOR Gender Identity Not on file Sexual Orientation Not on file documented as of this encounter Plan of Treatment Not on file documented as of this encounter Visit Diagnoses Not on filedocumented in this encounter Care Teams Commercial Mortgage Broker Relationship Specialty Start Date End Date Ekaterina Ryan DO [address] [place] [address] PCP - General Family Practice 09/30/10 documented as of this encounter
--- OUTSIDE RECORDS SUMMARY | 2025-06-17 10:20 | XMS_ITS | Encounter Summary ---
Author Organization [facility] Address [address] [place] [address] Care Team Providers Care Neighborhood Aide Name Role Phone Ekaterina Ryan DO Primary Care Provider Encounter Details Date Type Department Care Team (Late st Contact Info) Description 12/12/2003 Outpatient Historical [facility] Social History Tobacco Use Types Packs/Day Years Used Date Smoking Tobacco: Never Assessed Comments Unknown Sex and Gender Information Value Date Recorded Sex Assigned at Not on file Legal Sex Female 5:00 AM NSH TEACHER Gender Identity Not on file Sexual Orientation Not on file documented as of this encounter Plan of Treatment Not on file documented as of this encounter Visit Diagnoses Not on filedocumented in this encounter Care Teams Neighborhood Aide Relationship Specialty Start Date End Date Ekaterina Ryan DO [address] [place] [address] PCP - General Family Practice 09/30/10 documented as of this encounter
--- OUTSIDE RECORDS SUMMARY | 2025-06-17 10:20 | XMS_ITS | Encounter Summary ---
Author Organization [facility] Address [address] [place] [address] Care Team Providers Care Car Greaser Name Role Phone Ekaterina Ryan DO Primary Care Provider Encounter Details Date Type Department Care Team (Latest Contact Info) Description 02/14/[address] [facility] [place] [address] [place] [address] Terry Bhakta MD [address] [place] [id number] OTITIS MEDIA NOS (Primary Dx) Social History Tobacco Use Types Packs/Day Years Used Date Smoking Tobacco: Never Assessed Comments Unknown Sex and Gender Information Value Date Recorded Sex Assigned at Not on file Legal Sex Female 5:00 AM PHLEBOTOMY COORDINATOR Gender Identity Not on file Sexual Orientation Not on file documented as of this encounter Plan of Treatment Not on file documented as of this encounter Visit Diagnoses Diagnosis Unspecified otitis media- Primary documented in this encounter Care Teams Car Greaser Relationship Specialty Start Date End Date Ekaterina Ryan DO [address] [place] [address] PCP - General Family Practice 09/30/10 documented as of this encounter
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
[2025-06-17 10:30] LABS: Hematocrit 42.7 % (36-47); Hemoglobin 14.30 g/dL (11.27-16.99); Mean Corpuscular HGB Conc 33.5 g/dL (30-55); Mean Corpuscular Hemoglobin 32.1 pg (27-33); Mean Corpuscular Volume 95.7 fl (85-98); Nucleated Red Blood Cells % 0 %; Platelet Count 239 10^3/cmm (157-399); Red Blood Count 4.46 10^6/uL (3.85-5.65); White Blood Count 7.06 10^3/uL (3.29-11.43)
[2025-06-17 10:47] LABS: Troponin(5th) Baseline < 6 ng/L (0-10)
[2025-06-17 10:51] LABS: Alanine Aminotransferase 12 U/L (0-33); Albumin Level 4.7 g/dL (3.5-5.2); Alkaline Phosphatase 118 U/L (35-105); Anion Gap 17.8 (5-19); Aspartate Amino Transferase 20 U/L (0-32); Blood Urea Nitrogen 9 mg/dL (6-20); Calcium 9.6 mg/dL (8.5-10.5); Carbon Dioxide 24 mmol/L (22-29); Chloride 105 mmol/L (98-107); Creatinine Clr Calc Pharmacy 114.8978; Globulin 2.6 g/dL (1.3-4.6); Glucose 63 mg/dL (65-115); Lipase 249 U/L (13-60); Osmolality Calculated 293 mOsm/kg (285-295); Potassium 3.8 mmol/L (3.5-5.1); Sodium 143 mmol/L (136-145); Total Protein 7.3 g/dL (6.6-8.7)
--- NOTE | 2025-06-17 11:04 | CTR_ITS ---
PROCEDURE INFORMATION: Exam: CT Abdomen And Pelvis With Contrast Exam date and time: 06/17/2025 11:17 AM Age: 55 years old Clinical indication: Pain and abnormal findings; Abnormal lab test; Elevated lipase; Abdominal pain; Localized; Upper; Prior surgery; Surgery date: 6+ months; Surgery type: Partial hysterectomy, hernia; Additional info: Abd pain/elevated lipase TECHNIQUE: Imaging protocol: Computed tomography of the abdomen and pelvis with contrast. Radiation optimization: All CT scans at this facility use at least one of these dose optimization techniques: automated exposure control; mA and/or kV adjustment per patient size (includes targeted exams where dose is matched to clinical indication); or iterative reconstruction. Contrast material: OMNIPAQUE 350; Contrast volume: 100 ml; Contrast route: INTRAVENOUS (IV); COMPARISON: CR XR KUB [id number] 12/03/2024 6:39 PM RADIATION DOSE METRICS: Total DLP (mGy-cm): 380.51 FINDINGS: Lungs: The visualized lung bases are unremarkable. Liver: 7 mm hepatic cyst, which requires no further follow-up. Gallbladder and biliary ducts: The gallbladder is unremarkable with no mineralized stones or biliary ductal dilatation. Pancreas: The pancreas appears unremarkable on the current exam with no significant peripancreatic inflammatory stranding or fluid seen. Pancreatic parenchyma enhances normally. No parenchymal calcifications. Patent splenic vein. Spleen: The spleen appears unremarkable. Adrenal glands: The adrenal glands are unremarkable. Kidneys and ureters: The kidneys appear unremarkable. No mineralized stones or hydronephrosis. Stomach and bowel: Moderate diverticulosis in the left colon. No evidence of acute diverticulitis at this time. Moderate amount of colonic stool. There is no evidence of intestinal perforation or obstruction. Appendix: The appendix appears unremarkable. Intraperitoneal space: No free air. No significant fluid collection. Vasculature: No aneurysm or dissection in the visualized aorta. The vasculature demonstrates moderate atherosclerotic calcification. Moderate stenosis in the proximal SMA. Lymph nodes: No pathologically enlarged lymph nodes demonstrated. Urinary bladder: The bladder appears unremarkable. Reproductive: Retroverted fibroid uterus, with dominant fibroid appearing to measure up to 3.7 cm. Bones/joints: Well-defined intramedullary lucency with sclerotic borders in the right proximal femur, likely related to prior fixation hardware which has been removed. There is no acute osseous abnormality. Soft tissues: Small fat containing periumbilical hernia. CT/CT abdomen pelvis w con* [id number] IMPRESSION: 1. The pancreas appears unremarkable on the current exam with no significant peripancreatic inflammatory stranding or fluid seen. Pancreatic parenchyma enhances normally. No parenchymal calcifications. Patent splenic vein. 2. No mineralized cholelithiasis or biliary duct dilatation. 3. The vasculature demonstrates moderate atherosclerotic calcification. Moderate stenosis in the proximal SMA. 4. Moderate diverticulosis in the left colon. No evidence of acute diverticulitis at this time. Unremarkable appendix. 5. Retroverted fibroid uterus, with dominant fibroid appearing to measure up to 3.7 cm. 6. Other incidental and nonemergent findings are discussed above.
[2025-06-17] MEDS: iohexol 350 mg/mL 500 mL Btl (per mL) IV (11:19)
--- NOTE | 2025-06-17 12:18 | ECG_ITS ---
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 Measurements Intervals [place] Rate: 52 P: 24 NC: 163 QRS: 33 QRSD: 80 T: 44 QT: 427 QTc: 400 Interpretive Statements SINUS BRADYCARDIA Compared to ECG 06/17/2025 10:20:52 NO SIGNIFICANT CHANGE Electronically Signed On 06-17-2025 23:29:45 CDT by Jesse South M.D. [email or web address] [id number]
[2025-06-17] MEDS: lidocaine 2% viscous 15 ML, aluminum-mag hydrox-simethicon 30 ML, sucralfate oral liq 1 GM PO (12:50)
[2025-06-17 13:00] LABS: Troponin 5 2HR < 6.0 ng/L (0-10); Troponin 5 2HR Delta 0 ABS# (0-10)
[2025-06-17] MEDS: D5-NS 0.45% + KCL 20 mEq 20 MEQ/1,000 ML BAG 125 MEQ IV (15:18)
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
[2025-06-17 16:22] LABS: Troponin 5 6HR < 6.0 ng/L (0-10); Troponin 5 6HR Delta 0 ng/L (0-12)
--- NOTE | 2025-06-17 17:11 | ECG_ITS ---
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 Measurements Intervals [place] Rate: 56 P: 27 [place]: 169 QRS: 34 QRSD: 82 T: 30 QT: 418 QTc: 407 Interpretive Statements SINUS BRADYCARDIA OLD SEPTAL INFARCTION Compared to ECG 06/17/2025 12:27:42 No significant changes Electronically Signed On 06-17-2025 23:23:16 CDT by Jesse South M.D. [id number]
[2025-06-17] MEDS: dextrose 5%-sod chloride 0.9% 1,000 ML 100 ML IV (18:17)
[2025-06-17] MEDS: pantoprazole 40 mg SDV IVP (18:17)
[2025-06-18] VITALS (11 sets, daily range): BP systolic 136–170; BP diastolic 52–90; PULSE 51–69; RESP 16–18; TEMP 36.4–37; O2SAT 98–100
[2025-06-18] MEDS: dextrose 5%-sod chloride 0.9% 1,000 ML 100 ML IV ×2 (03:59→13:12)
[2025-06-18 04:01] LABS: Anion Gap 11.0 (5-19); Blood Urea Nitrogen 8 mg/dL (6-20); Calcium 9.2 mg/dL (8.5-10.5); Carbon Dioxide 28 mmol/L (22-29); Chloride 108 mmol/L (98-107); Creatinine Clr Calc Pharmacy 95.7481; Glucose 105 mg/dL (65-115); Lipase 42 U/L (13-60); Osmolality Calculated 295 mOsm/kg (285-295); Potassium 4.0 mmol/L (3.5-5.1); Sodium 143 mmol/L (136-145)
[2025-06-18] MEDS: pantoprazole 40 mg SDV IVP ×2 (05:03→17:25)
[2025-06-18] MEDS: morphine 4 mg/mL SDV 1 mL IVP (08:09)
--- NOTE | 2025-06-18 09:41 | ECG_ITS ---
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 Interpretive Statements Lung unchanged pre/post procedure PROCEDURE: At the baseline, the EKG revealed normal sinus rhythm with a poor R wave progression. Possible old septal AL.. The baseline heart was 60 to bpm with a blood pressue of 162/92 mm of Hg Lexiscan was infused over a period of 20 seconds. A total of 0.4 milligrams of Lexiscan was infused. The stress phase was continued for a total of 5 minutes. Heart rate at the end of the stress phase was 90 bpm with a blood pressure 182/101 mm of Hg. The EKG at the peak infusion revealed no significant changes. Sestamibi was injected 20 seconds after the Lexiscan infusion. Heart rate at the end of the recovery phase was 85 bpm with a blood pressure of 178/98 mm of Hg. CONCLUSION: 1. No significant EKG changes with the LexiScan infusion 2. No LexiScan induced chest pain or cardiac arrhythmia 3. Normal blood pressure and heart rate response 4. Sestamibi/sestamibi perfusion scan pending; see separate report. Electronically Signed On 06-23-2025 13:39:50 CDT by Jahaira Negron M.D. [email or web address]
--- NOTE | 2025-06-18 12:28 | P.PN_ITS ---
Subjective 2 Subjective: Patient remains with contact continuous moderate left mid chest pain behind the left breast. Nothing alters or modifies this pain. GI cocktails have not. Morphine has not helped. 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 She states that she was on a recent vacation for 10 days and did not work and the pain did not get improved when I suspected it was a costochondritis. There is a concern that she has atherosclerosis and therefore I think it is prudent to move forward with a stress test despite the atypical chest pain for cardiac ischemia. Vitals/I&O/Wt Last Vital Signs Temp 97.8 F 06/18/25 04:00 Pulse 56 L 06/18/25 11:21 Resp 17 06/18/25 11:21 BP 157/79 06/18/25 11:21 Pulse Ox 100 06/18/25 11:21 O2 Del Method Room Air 06/18/25 10:00 06/17/25 06/18/25 06/18/25 22:59 06:59 14:59 Intake Total 383.333 / 383.333 970 / 1353.333 Output Total 400 / 400 Balance -16.667 / -16.667 970 / 953.333 Weight last 48 hrs Weight 61.433 kg Weight 61.235 kg Weight 61.235 kg Physical Exam 2 Narrative: Chest: Patient does have reproducible chest pain that is similar to her pain in the upper to mid Thoracics anteriorly heart is regular normal S1-2 without clicks rubs or murmurs Lungs clear to auscultation without wheezes rales or rhonchi Abdomen nontender nondistended normal active bowel sounds no hepatosplenomegaly Extremities floor present no clubbing cyanosis or edema Data 06/17/25 10:23 06/18/25 02:41 A&P Assessment and plan 1. Elevated lipase: 2. Superior mesenteric artery stenosis: 3. Atypical chest pain: 4. Costochondritis: Plan: Patient has had no change in her chest pain. I did find reproducible chest pain on palpation of the upper to mid parasternal area. I recommend high-dose Motrin and heat to area. To be complete I feel it is necessary to do a cardiac stress test to rule out signs of ischemia. She reports plaque in her carotid arteries that she did as a screening and we have identified atherosclerosis and the arteries to her bowels. I am treating her for mesenteric ischemia with aspirin and Plavix. Of note her lipase has returned to normal. She did eat this morning. PDMP PDMP Reviewed: Not Reviewed Attestations 2 Medical Necessity Statement*: Patient remains in observation status for stress test tomorrow Coding Level of Care Code Acute Code for Chg Fwd Diagnoses Elevated lipase R74.8 Superior mesenteric artery stenosis K55.1 Atypical chest pain R07.89 Costochondritis M94.0
[2025-06-19] VITALS (9 sets, daily range): BP systolic 134–178; BP diastolic 75–102; PULSE 64–87; RESP 11–20; TEMP 36.4–37.2; O2SAT 96–99
[2025-06-19] MEDS: dextrose 5%-sod chloride 0.9% 1,000 ML 100 ML IV (00:28)
[2025-06-19] MEDS: pantoprazole 40 mg SDV IVP (05:00)
--- NOTE | 2025-06-19 09:41 | NMCV_ITS ---
NM alla perf SPECT r/s* [id number] Stanley Gentiledi Age: 55 Gender: F : 1970 Exam Date: 06/19/2025 06:54 Ordering Phys: Gavino Edwards DO Technologist: FRAN King Exam Location: [facility] Indications: cp STRESS TEST Please see separate stress test report in [facility] for full findings IMAGE PROTOCOL Rest/Stress 1 Lexiscan Day Radiopharmaceutical Dose (mCi) Administration Site Administered by Rest: Tc-99m 10.3 IV FRAN King Sestamibi Stress:Tc-99m 33 IV FRAN Vega Sestamibi Rest: 19-Jun-2025 60 Discovery 630 Stress: 19-Jun-2025 30 Discovery 630 0.4mg Lexiscan. Images obtained in supine and prone position. SPECT RESULTS Technical Quality: Good Raw Data Analysis: Normal Image Corrections: No attenuation or motion correction applied Summed Stress Score: 2 Summed Rest Score: 8 Summed Difference Score: 0 PERFUSION FINDINGS Small to moderate area of slightly decreased tracer uptake involving the mid inferior and mid anteroseptal regions. No significant reversibility was noted in these areas FUNCTIONAL RESULTS (calculated via Gated SPECT) Stress Image LV EF (%): 55 Stress EDV (mL):101 TID: 1.15 Stress ESV (mL):45 FUNCTIONAL FINDINGS: Segmental wall motion analysis revealed a mild hypokinesia of the mid and apical inferior wall region. The transient ischemic dilatation ratio was 1.15. IMPRESSIONS 1. Myocardial perfusion imaging revealing small to moderate area of slightly decreased persistent tracer uptake involving the mid inferior and mid anteroseptal regions, suggesting myocardial scarring versus attrition artifact 2. Normal LV ejection fraction of 55%. 3. LV wall motion analysis revealing mild hypokinesis of mid and apical inferior wall regions. 4. Normal LV volume, upper limit of normal. 5. Borderline elevation of the transischemic dilatation ratio, may suggest endocardial ischemia. Clinical correlation is recommended No similar previous studies are available for comparison Dr Jahaira Negron MD [facility] (Electronically Signed) Final Date: 19 June 2025 12:36 S
--- NOTE | 2025-06-19 13:46 | USCV_ITS ---
Bisi Gentile Age: 55 Gender: F : 1970 Exam Date: 06/19/2025 15:50 Ordering Phys: Drea Erazo MD Technologist: BENNIE Exam Location: [facility] [place] Indication: Positive stress test BP: 120 / 70 HR: 61 Rhythm: Sinus Technical Quality: Adequate MEASUREMENTS (Male / Female) Normal Values 2D ECHO LV Diastolic Diameter PLAX 4.8 cm 4.2 - 5.9 / 3.9 - 5.3 cm IVS Diastolic Thickness 0.9 cm 0.6 - 1.0 / 0.6 - 0.9 cm IVS Systolic Thickness 1.2 cm LVPW Diastolic Thickness 1.5 cm 0.6 - 1.0 / 0.6 - 0.9 cm LVPW Systolic Thickness 1.7 cm LVOT Diameter 1.9 cm LV Ejection Fraction 2D Teich 62.3 % LV Ejection Fraction MOD 4C 59.5 % LV Ejection Fraction MOD 2C 48.0 % LV Ejection Fraction 2C AL 46.8 % LA Diameter 2.7 cm RA Systolic Volume 4C AL 27.6 ml RA Systolic Volume 4C MOD 25.7 ml LA Sys Volume AL 36.6 cm cubed LA Sys Volume Index AL 21.3 cm cubed/m squared Aorta at Sinotubular Diameter 2.5 cm IVC Diameter 1.7 cm M-MODE LA Ao Ratio MM 1.3 AV Cusp Separation MM 1.4 cm DOPPLER AV Peak Velocity 132.0 cm/s LVOT Peak Velocity 83.0 cm/s AV Area Cont Eq vti 2.0 cm squared AV Area Cont Eq pk 1.8 cm squared MV Peak Velocity 88.0 cm/s MV Area PHT 3.4 cm squared Mitral E to A Ratio 0.9 TV Peak E Velocity 95.0 cm/s PV Peak Velocity 101.0 cm/s FINDINGS Left Ventricle Mild diffuse hypokinesis of the septum and the anteroseptal segments. LV ejection fraction around 48%.Grade I/IV diastolic dysfunction (abnormal relaxation filling pattern), normal to mildly elevated filling pressures. Right Ventricle Normal right ventricular size and systolic function. Right Atrium The right atrium is normal in size. Left Atrium The left atrium is normal in size. Mitral Valve Trace mitral valve regurgitation. Aortic Valve No gross abnormalities noted Tricuspid Valve No gross abnormalities noted Pulmonic Valve Pulmonic valve not well visualized. Pericardium Normal pericardium without effusion. Aorta Normal aortic annulus size. IVC The inferior vena cava appears normal. CONCLUSIONS Mild diffuse hypokinesis of the septum and the anteroseptal segments. LV ejection fraction around 48%. Grade I/IV diastolic dysfunction (abnormal relaxation filling pattern), normal to mildly elevated filling pressures. Trace mitral valve regurgitation. There is no pericardial effusion. There are no intracardiac masses. No similar previous studies are available for comparison Dr Jahaira Negron MD [facility] (Electronically Signed) Final Date: 19 June 2025 18:02 S
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
--- NOTE | 2025-06-19 14:46 | P.PN_ITS ---
Subjective 2 Subjective: Went for stress test this morning States she has a strong cardiac history in the family She still complains of chest pain on the left side which she says has been going on for the last 5 weeks. There is nothing that makes it better or worse. She says she has eliminated all the foods that could potentially cause her GERD. Pain radiates across her chest. Symptoms to get worse with moderate activities. She does have some shortness of breath associated with exertion. She is a smoker for the last 40 years. 2 of her brothers of a heart attack in their 40s and her dad also had heart attack in his 60s. Mother of heart attacks in the 60s. She says the chest pain is persistent. Vitals/I&O/Wt Last Vital Signs Temp 97.5 F L 06/19/25 11:39 Pulse 73 06/19/25 11:39 Resp 18 06/19/25 11:39 BP 178/78 06/19/25 11:39 Pulse Ox 99 06/19/25 11:39 O2 Del Method Room Air 06/19/25 11:39 06/18/25 06/19/25 06/19/25 22:59 06:59 14:59 Intake Total 1000 / 2401.667 Balance 1000 / 1401.667 Weight last 48 hrs Weight 65.487 kg Weight 61.433 kg Weight 61.235 kg Physical Exam 2 Narrative: Chest: Chest pain mildly reproducible patient however the reproducibility is different to the pain that she has been having. She states her baseline chest pain is more of an ache. heart is regular normal S1-2 Lungs clear to auscultation without wheezes rales or rhonchi Abdomen nontender nondistended normal active bowel sounds Extremities floor present no clubbing cyanosis or edema Data 06/17/25 10:23 06/18/25 02:41 A&P Assessment and plan 1. Elevated lipase: 2. Superior mesenteric artery stenosis: 3. Atypical chest pain: 4. Costochondritis: Plan: Patient has had no change in her chest pain. I did find reproducible chest pain on palpation of the upper to mid parasternal area. I recommend high-dose Motrin and heat to area. To be complete I feel it is necessary to do a cardiac stress test to rule out signs of ischemia. She reports plaque in her carotid arteries that she did as a screening and we have identified atherosclerosis and the arteries to her bowels. I am treating her for mesenteric ischemia with aspirin and Plavix. Of note her lipase has returned to normal. She did eat this morning. 06/19/2025 Returned from cardiac stress test. Stress test results are pending. Continue aspirin Plavix at this time. Check echocardiogram. I believe her chest pain may be cardiac in nature therefore cardiac workup is important. Does have superior mesenteric artery moderate stenosis. Will need vascular follow-up as an outpatient. Her current symptoms are not consistent with SMA stenosis. Will consult cardiology. PDMP PDMP Reviewed: Not Reviewed Attestations 2 Medical Necessity Statement*: Will need full cardiac workup. Coding Level of Care Code Acute Code for Chg Fwd Diagnoses Elevated lipase R74.8 Superior mesenteric artery stenosis K55.1 Atypical chest pain R07.89 Costochondritis M94.0
[2025-06-19] MEDS: morphine 4 mg/mL SDV 1 mL IVP (22:11)
[2025-06-20] VITALS (25 sets, daily range): BP systolic 87–178; BP diastolic 51–95; PULSE 49–82; RESP 12–23; TEMP 36.1–36.8; O2SAT 93–98
[2025-06-20 04:55] LABS: Hematocrit 42.4 % (36-47); Hemoglobin 14.40 g/dL (11.27-16.99); Mean Corpuscular HGB Conc 34.0 g/dL (30-55); Mean Corpuscular Hemoglobin 32.3 pg (27-33); Mean Corpuscular Volume 95.1 fl (85-98); Nucleated Red Blood Cells % 0 %; Platelet Count 258 10^3/cmm (157-399); Red Blood Count 4.46 10^6/uL (3.85-5.65); White Blood Count 8.76 10^3/uL (3.29-11.43)
[2025-06-20 05:30] LABS: Anion Gap 14.9 (5-19); Blood Urea Nitrogen 17 mg/dL (6-20); Calcium 9.8 mg/dL (8.5-10.5); Carbon Dioxide 26 mmol/L (22-29); Chloride 104 mmol/L (98-107); Creatinine Clr Calc Pharmacy 98.6596; Glucose 93 mg/dL (65-115); Magnesium 2.1 mg/dL (1.7-2.3); Osmolality Calculated 293 mOsm/kg (285-295); Potassium 3.9 mmol/L (3.5-5.1); Sodium 141 mmol/L (136-145)
[2025-06-20 05:33] LABS: Cholesterol 268 mg/dL (0-200); HDL Cholesterol 39 mg/dL (60-100); Triglycerides 319 mg/dL (0-150)
[2025-06-20] MEDS: pantoprazole 40 mg SDV IVP ×2 (06:43→16:18)
--- NOTE | 2025-06-20 07:12 | PM.PN ---
Subjective Subjective: Patient is still having chest pain but is better than yesterday. No fever or chills. No cough. No new symptoms. Medications: Medication Review Details: Current Medications Albuterol Sulfate (Albuterol 2.5 Mg/3 Ml Neb) 2.5 mg INHALATION QID.RESPIRATORY PRN PRN Reason: shortness of breath or wheezing Amlodipine Besylate (Amlodipine 10 Mg Tablet) 5 mg PO DAILY [facility] Aspirin (Aspirin 325 Mg Tablet) 81 mg PO DAILY [facility] Atorvastatin Calcium (Atorvastatin 40 Mg Tablet) 40 mg PO BEDTIME [facility] Last Admin: 06/19/25 21:17 Dose: 40 mg Clopidogrel Bisulfate (Clopidogrel 75 Mg Tablet) 75 mg PO DAILY [facility] Last Admin: 06/19/25 10:09 Dose: 75 mg Sodium Chloride (Sodium Chloride 0.9%) 1,000 mls @ 50 mls/hr IV .Q20H ONE Stop: 06/20/25 14:55 Last Admin: 06/20/25 06:43 Dose: 50 mls/hr Lorazepam (Lorazepam 0.5 Mg Tablet) 0.5 mg PO BEDTIME PRN PRN Reason: INSOMNIA Last Admin: 06/17/25 21:56 Dose: 0.5 mg Metoprolol Tartrate (Metoprolol Tartrate 25 Mg Tablet) 25 mg PO BID@0900,2100 [facility] Last Admin: 06/19/25 21:17 Dose: 25 mg Morphine Sulfate (Morphine 4 Mg/Ml Sdv 1 Ml) 4 mg IVP Q4H PRN PRN Reason: SEVERE PAIN Last Admin: 06/19/25 22:11 Dose: 4 mg Ondansetron HCl (Ondansetron 2 Mg/Ml Sdv 2 Ml) 4 mg IVP Q8H PRN PRN Reason: vomiting, or N/V if npo Ondansetron HCl (Ondansetron 2 Mg/Ml Sdv 2 Ml) 4 mg IVP Q2M PRN PRN Reason: NAUSEA Oxycodone HCl (Oxycodone 5 Mg Ir Tab/Cap) 5 mg PO Q6H PRN PRN Reason: SEVERE PAIN Pantoprazole Sodium (Pantoprazole 40 Mg Sdv) 40 mg IVP Q12H [facility] Last Admin: 06/20/25 06:43 Dose: 40 mg Vitals/I&O/Wt Last Vital Signs Temp 97.8 F 06/20/25 04:25 Pulse 52 L 06/20/25 04:25 Resp 14 06/20/25 04:25 BP 114/55 06/20/25 04:25 Pulse Ox 94 06/20/25 04:25 O2 Del Method Room Air 06/20/25 04:25 06/19/25 06/20/25 06/20/25 22:59 06:59 14:59 Intake Total 1000 / 1000 Balance 1000 / 1000 Weight last 48 hrs Weight 144 lb 6 oz Physical Exam Narrative: GENERAL: The patient is alert and oriented times three. Not in any acute distress. HEENT: No significant pallor, icterus or lymphadenopathy.Oral cavity: There are no mucous membrane lesions. NECK: Trachea appears to be central. No masses noted. No JVD or thyromegaly appreciated. RESPIRATORY: Chest is symmetrical. No intercostals muscle retraction or any accessory muscle activation. There is no chest wall tenderness. Breath sounds are heard bilaterally. No rales or rhonchi heard. No evidence of any consolidation. BREASTS: Deferred. HEART: The heart sounds are normal. No S3 or S4. No significant murmurs. No pericardial rub ABDOMEN: No vessel pulsations or distention. No tenderness. No organomegaly appreciated. Bowel sounds are normally heard. : Deferred. RECTAL: Deferred. LYMPHATIC: No lymphadenopathy noted in the neck. EXTREMITIES: No edema or cyanosis. No clubbing. MUSCULOSKELETAL: No acute joint deformities or swelling SKIN: There are no significant rashes or ecchymosis NEUROPSYCHIATRIC: The patient is alert and oriented x3. Appears to be in a good mood. No tremors or rigidity noted. Data 06/20/25 03:57 06/20/25 03:57 Other Labs: Laboratory Last Values WBC 8.76 10^3/uL (3.29-11.43) 06/20/25 03:57 RBC 4.46 10^6/uL (3.85-5.65) 06/20/25 03:57 Hgb 14.40 g/dL (11.27-16.99) 06/20/25 03:57 Hct 42.4 % (36-47) 06/20/25 03:57 MCV 95.1 fl (85-98) 06/20/25 03:57 MCH 32.3 pg (27-33) 06/20/25 03:57 MCHC 34.0 g/dL (30-55) 06/20/25 03:57 RDW 11.9 % (12.1-15.1) L 06/20/25 03:57 Plt Count 258 10^3/cmm (157-399) 06/20/25 03:57 MPV 10.7 fL (7.4-10.4) H 06/20/25 03:57 Neut % (Auto) 41.1 % 06/20/25 03:57 Lymph % (Auto) 49.0 % 06/20/25 03:57 Victoria % (Auto) 7.8 % 06/20/25 03:57 Eos % (Auto) 1.4 % 06/20/25 03:57 Baso % (Auto) 0.5 % 06/20/25 03:57 Neut # (Auto) 3.61 10^3/uL (1.8-7.7) 06/20/25 03:57 Lymph # (Auto) 4.3 10^3/uL (0.8-4.8) 06/20/25 03:57 Victoria # (Auto) 0.7 10^3/uL (0.2-0.9) 06/20/25 03:57 Eos # (Auto) 0.1 10^3/uL (0.0-0.8) 06/20/25 03:57 Baso # (Auto) 0.0 10^3/uL (0.0-0.1) 06/20/25 03:57 Nucleated RBC % (auto) 0 % 06/20/25 03:57 Nucleated RBCs # 0.0 /100WBC 06/20/25 03:57 Sodium 141 mmol/L (136-145) 06/20/25 03:57 Potassium 3.9 mmol/L (3.5-5.1) 06/20/25 03:57 Chloride 104 mmol/L (98-107) 06/20/25 03:57 Carbon Dioxide 26 mmol/L (22-29) 06/20/25 03:57 Anion Gap 14.9 (5-19) 06/20/25 03:57 BUN 17 mg/dL (6-20) 06/20/25 03:57 Creatinine 0.6 mg/dL (0.5-0.9) 06/20/25 03:57 GFR Calculation 104.6 mL/min (90-130) 06/20/25 03:57 Glucose 93 mg/dL (65-115) 06/20/25 03:57 Calculated Osmolality 293 mOsm/kg (285-295) 06/20/25 03:57 Calcium 9.8 mg/dL (8.5-10.5) 06/20/25 03:57 Magnesium 2.1 mg/dL (1.7-2.3) 06/20/25 03:57 Total Bilirubin 0.2 mg/dL (0.15-1.2) 06/17/25 10:23 AST 20 U/L (0-32) 06/17/25 10:23 ALT 12 U/L (0-33) 06/17/25 10:23 Alkaline Phosphatase 118 U/L (35-105) H 06/17/25 10:23 Troponin T Baseline < 6 ng/L (0-10) 06/17/25 10:23 Troponin T 120 Minute < 6.0 ng/L (0-10) 06/17/25 12:18 Delta Troponin T 0 ABS# (0-10) 06/17/25 12:18 Troponin T Hi Sens 6Hr < 6.0 ng/L (0-10) 06/17/25 15:59 Troponin T Hi Sens 6Hr Delta 0 ng/L (0-12) 06/17/25 15:59 Total Protein 7.3 g/dL (6.6-8.7) 06/17/25 10:23 Albumin 4.7 g/dL (3.5-5.2) 06/17/25 10:23 Globulin 2.6 g/dL (1.3-4.6) 06/17/25 10:23 Triglycerides 319 mg/dL (0-150) H 06/20/25 03:57 Cholesterol 268 mg/dL (0-200) H 06/20/25 03:57 LDL Cholesterol, Calc 165 mg/dL (50-129) H 06/20/25 03:57 HDL Cholesterol 39 mg/dL (60-100) L 06/20/25 03:57 LDL/HDL Ratio 4.23 RATIO (0.00-3.22) H 06/20/25 03:57 Cholesterol/HDL Ratio 6.87 mg/dL (0.0-4.40) H 06/20/25 03:57 Lipase 42 U/L (13-60) 06/18/25 02:41 A&P Assessment and plan 1. Abnormal nuclear stress test: The abnormal perfusion scan in view of the abnormal abnormal echocardiogram, multiple risk factors and the clinical presentation is highly suggestive of underlying coronary artery disease. For further evaluation of the patient's coronary status, a cardiac catheterization would be appropriate. I may start the patient on a low-dose of beta-pollo, p.o. aspirin and subcu Lovenox. May continue on the current medications. Cardiac catheterization scheduled for today 2. Nicotine dependence due to vaping tobacco product: Patient is strongly advised to stay away from the smoking/vaping 3. Elevated BP without diagnosis of hypertension: The blood pressure seems to be in the normal range. May continue on the current medications. Beta-pollo as mentioned above. 4. Hypercholesterolemia: I may start the patient on Lipitor 40 mg p.o. nightly. Will do a lipid profile in the morning. Patient seems to be tolerating medication so far well 5. Gastroesophageal reflux disease without esophagitis: May continue on the current medications. 6. Left ventricular dysfunction: Most likely related to underlying coronary ischemia. No evidence of any heart failure at this time Plan: Once again I discussed the patient about the angiogram, possible risks and benefits and alternatives. Patient understood this well and consented to proceed. Angiogram is scheduled for this morning Based on the angiogram findings, further recommendations will be made PDMP PDMP Reviewed: Not Reviewed Attestations Medical Necessity Statement*: Patient requires continued hospital stay for close monitoring and further management Coding Level of Care Code Acute Code for Chg Fwd Diagnoses Abnormal nuclear stress test R94.39 Nicotine dependence due to vaping tobacco product F17.290 Elevated BP without diagnosis of hypertension R03.0 Hypercholesterolemia E78.00 Gastroesophageal reflux disease without esophagitis K21.9 Esophagitis presence: without esophagitis Left ventricular dysfunction I51.9
--- NOTE | 2025-06-20 08:05 | W.PM.OPSUD ---
Surgery/Procedure H&P Update DATE OF PROCEDURE: June 20, 2025 DATE H&P PERFORMED: 06/19/25 H&P UPDATE INFORMATION: I have reviewed H&P completed within last 30 days, I have examined patient prior to procedure and No changes to prior documentation PREOP DIAGNOSIS: ASHD/LV systolic dysfunction PRIMARY INDICATION FOR PROCEDURE: Patient with chest pain, abnormal Myocardial perfusion imaging, abnormal echocardiogram PLANNED PROCEDURE: Operation Date: 06/20/25 07:45 Proposed Procedures p Cardiac Catheterization(Left) - Jahaira Negron MD PATIENT REASSESSED PRIOR TO SEDATION, WITH NO CHANGE NOTED: Yes PHYSICAL EXAM: alert, oriented x 3 and clear to auscultation bilaterally AIRWAY EVAL/ANESTHESIA PLAN: normal airway, see other exam findings, ASA III, Monitored Anesthesia, Local Anesthesia, Risks, benefits & alternatives of sedation and/or procedure discussed and Patient agrees to continue as planned
--- NOTE | 2025-06-20 09:26 | PC.NURSE ---
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
--- NOTE | 2025-06-20 09:42 | PC.CHAP ---
Pastoral Care Encounter/Spiritual Assessment Type of Contact [] Declined death surveys coder visit [] Patient/Family/Request visit [] Outpatient visit [] Follow-up visit [] Physician referral [] Code/Alert [] Routine visit [] Staff referral [] Actively dying [] Patient sleeping [] Family support [] [x] Out of room [] Palliative care [] [] Receiving care in room [] Pre-surgical visit [] Trauma [] Long length of stay [] ICU visit [] Other: Relational/Emotional Strength [] Patient feels connected with others/family/visitors/staff [] Distress [] Loneliness/isolation [] Abandonment Spirituality of Patient [] Person of [place] [] Attends Buddhist of their [place] [] Believes in Prayer [] Reads Bible or Confucianist materials [] There are Spiritual issues to be addressed Mold Inspector Interventions [] Prayer [] Active listening [] Non-anxious presence [] Spiritual/emotional support [] Crisis/trauma care [] Spiritual counseling [] Bereavement support [] Provided bereavement packet [] Provided Bible/devotional materials [] Provided toy/stuffed animal, coloring book to patient or family member [] Provided Communion [] Anointing/[place] [] Salvation [] Completed spiritual assessment [] Other: Impact on Illness or Injury [] Angry [] Fearful [] Anxious [] Often cries [] Exhaustion [] Unable to work [] Unable to attend jew [] Unable to walk/stand [] Unable to read [] Unable to drive [] Unable to eat/drink [] Unable to sleep [] Unable to be with family [] Patient intubated [] Other: Summary Time spent with patient
--- NOTE | 2025-06-20 10:09 | PC.NURSE ---
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 TR band in place. Right hand warm, pulse is present. Instructed patient on site care with restrictions. Patient and spouse both verbalized complete understanding. Patient denies pain to site.
--- NOTE | 2025-06-20 11:06 | P.PN_ITS ---
Subjective 2 Subjective: seen this am pt s/p cath s/p 1 cecelia eating breakfast now Vitals/I&O/Wt Last Vital Signs Temp 98.2 F 06/20/25 08:00 Pulse 57 L 06/20/25 10:51 Resp 17 06/20/25 10:51 BP 178/72 06/20/25 10:51 Pulse Ox 97 06/20/25 10:51 O2 Del Method Room Air 06/20/25 04:25 06/19/25 06/20/25 06/20/25 22:59 06:59 14:59 Intake Total 1000 / 1000 Balance 1000 / 1000 Weight last 48 hrs Weight 64.665 kg Weight 65.487 kg Physical Exam 2 Narrative: General: no acute distress heart is regular normal S1-2 Lungs clear to auscultation without wheezes rales or rhonchi Abdomen nontender nondistended normal active bowel sounds Extremities no edema Data 06/20/25 03:57 06/20/25 03:57 A&P Assessment and plan 1. Elevated lipase: 2. Superior mesenteric artery stenosis: 3. Atypical chest pain: 4. Costochondritis: Plan: Patient has had no change in her chest pain. I did find reproducible chest pain on palpation of the upper to mid parasternal area. I recommend high-dose Motrin and heat to area. To be complete I feel it is necessary to do a cardiac stress test to rule out signs of ischemia. She reports plaque in her carotid arteries that she did as a screening and we have identified atherosclerosis and the arteries to her bowels. I am treating her for mesenteric ischemia with aspirin and Plavix. Of note her lipase has returned to normal. She did eat this morning. 06/19/2025 Returned from cardiac stress test. Stress test results are pending. Continue aspirin Plavix at this time. Check echocardiogram. I believe her chest pain may be cardiac in nature therefore cardiac workup is important. Does have superior mesenteric artery moderate stenosis. Will need vascular follow-up as an outpatient. Her current symptoms are not consistent with SMA stenosis. Will consult cardiology. 06/20/2025 pt s/p angiogram this am, final report pending, 1 CECELIA deployed continue on aspirin, plavix, atorvastatin BB, echo reviewed, stress test abnormal, patient underwent angiogram PDMP PDMP Reviewed: Not Reviewed Attestations 2 Medical Necessity Statement*: post cath care Diagnoses Elevated lipase R74.8 Superior mesenteric artery stenosis K55.1 Atypical chest pain R07.89 Costochondritis M94.0
--- NOTE | 2025-06-20 14:30 | PC.NURSE ---
Initiated TR band removal at 1130 removing 2ml of air every 15-20min until all air removed. Band is off. No s/s of bleeding or hematoma formation observed. Covered site with 2x2 and coban. Reinforced site care instructions with restrictions. Patient verbalized complete understanding.
--- NOTE | 2025-06-20 15:15 | ECG_ITS ---
[facility] Test Date: 2025-06-20 Pat Name: Bisi Gentile Department: Room: 101 Gender: Female Contract Specialist: : 1970 Requested By: Drea Erazo Order Number: [id number] Davida MD: Jahaira Negron M.D. Measurements Intervals [place] Rate: 75 P: 60 [place]: 169 QRS: 22 QRSD: 78 T: 53 QT: 428 QTc: 478 Interpretive Statements SINUS RHYTHM Septal infarct, age undetermined Compared to ECG 06/17/2025 17:11:09 Sinus bradycardia no longer present Myocardial infarct finding still present Electronically Signed On 06-20-2025 17:30:23 CDT by Jahaira Negron M.D. [email or web address]
--- NOTE | 2025-06-20 15:24 | PC.NURSE ---
Patient c/o severe 8/10 chest pain. EKG obtained. Morphine given as ordered. Informed Dr Negron and Dr Hughes. Clare to review EKG.
[2025-06-20] MEDS: morphine 4 mg/mL SDV 1 mL IVP (20:06)
[2025-06-21 04:00] VITALS: BP 107/68; PULSE 62; RESP 18; TEMP 36.4; O2SAT 94
[2025-06-21 04:29] LABS: Hematocrit 40.0 % (36-47); Hemoglobin 13.50 g/dL (11.27-16.99); Mean Corpuscular HGB Conc 33.8 g/dL (30-55); Mean Corpuscular Hemoglobin 31.8 pg (27-33); Mean Corpuscular Volume 94.3 fl (85-98); Nucleated Red Blood Cells % 0 %; Platelet Count 223 10^3/cmm (157-399); Red Blood Count 4.24 10^6/uL (3.85-5.65); White Blood Count 9.79 10^3/uL (3.29-11.43)
[2025-06-21 04:55] LABS: Anion Gap 16.0 (5-19); Blood Urea Nitrogen 16 mg/dL (6-20); Calcium 9.4 mg/dL (8.5-10.5); Carbon Dioxide 23 mmol/L (22-29); Chloride 103 mmol/L (98-107); Creatinine Clr Calc Pharmacy 98.0967; Glucose 96 mg/dL (65-115); Magnesium 2.1 mg/dL (1.7-2.3); Osmolality Calculated 287 mOsm/kg (285-295); Potassium 4.0 mmol/L (3.5-5.1); Sodium 138 mmol/L (136-145)
[2025-06-21 06:00] VITALS: PULSE 65; BMI 25.2
[2025-06-21] MEDS: pantoprazole 40 mg SDV IVP (06:17)
[2025-06-21 07:15] VITALS: BP 125/85; PULSE 77; RESP 18; TEMP 36.2; O2SAT 99
[2025-06-21 08:38] VITALS: RESP 18; O2SAT 98
--- NOTE | 2025-06-21 11:03 | P.DS_ITS ---
Discharge Providers Date of Admission: 06/19/25 16:03 Date of Discharge: June 21, 2025 Attending Provider at Admission: Gavino Edwards DO Attending Provider at Discharge: Drea Erazo MD Primary Care Provider: Evy Morales MD Diagnoses at Discharge Discharge Diagnosis 1. Elevated lipase: 2. Superior mesenteric artery stenosis: 3. Atypical chest pain: 4. Costochondritis: Reason for Visit Reason for Visit: Chets Pain Hospital Course Hospital Course Patient presented to the hospital with chest pain. She does have evidence of superior mesenteric artery moderate stenosis and will need to follow-up with that as an outpatient. She underwent cardiac stress testing in the hospital which was found to be abnormal. She underwent coronary angiogram and 1 drug- eluting stent was deployed. Patient will be discharged home with aspirin Plavix atorvastatin metoprolol tartrate and amlodipine. Cardiology on board. He is to follow-up with cardiology as an outpatient. Physical Exam Narrative: General: no acute distress heart is regular normal S1-2 Lungs clear to auscultation without wheezes rales or rhonchi Abdomen nontender nondistended normal active bowel sounds Extremities no edema Discharge Data Studies Completed and Pending Completed Studies During Hospitalization Category Date Time Status CT abdomen pelvis w con* [id number] Stat Cat Scan 06/17/25 11:04 Completed Cardiac Stress Test MIBI [Sestamibi Stress Test Request Exams 06/18/25 09:41 Draft ] Routine XR chest 1V portable [id number] Stat Exams 06/17/25 10:18 Completed NM alla perf SPECT r/s* [id number] Routine Nuc Med 06/19/25 09:41 Completed CV. 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 Minimal non consolidative infiltrate would be considered less likely. No consolidation. Correlate with clinical presentation. Abdomen/Pelvis CT 06/17/25 11:04 IMPRESSION: 1. The pancreas appears unremarkable on the current exam with no significant peripancreatic inflammatory stranding or fluid seen. Pancreatic parenchyma enhances normally. No parenchymal calcifications. Patent splenic vein. 2. No mineralized cholelithiasis or biliary duct dilatation. 3. The vasculature demonstrates moderate atherosclerotic calcification. Moderate stenosis in the proximal SMA. 4. Moderate diverticulosis in the left colon. No evidence of acute diverticulitis at this time. Unremarkable appendix. 5. Retroverted fibroid uterus, with dominant fibroid appearing to measure up to 3.7 cm. 6. Other incidental and nonemergent findings are discussed above. Laboratory Results WBC 9.79 10^3/uL (3.29-11.43) 06/21/25 03:59 RBC 4.24 10^6/uL (3.85-5.65) 06/21/25 03:59 Hgb 13.50 g/dL (11.27-16.99) 06/21/25 03:59 Hct 40.0 % (36-47) 06/21/25 03:59 MCV 94.3 fl (85-98) 06/21/25 03:59 MCH 31.8 pg (27-33) 06/21/25 03:59 MCHC 33.8 g/dL (30-55) 06/21/25 03:59 RDW 11.9 % (12.1-15.1) L 06/21/25 03:59 Plt Count 223 10^3/cmm (157-399) 06/21/25 03:59 MPV 10.6 fL (7.4-10.4) H 06/21/25 03:59 Neut % (Auto) 61.9 % 06/21/25 03:59 Lymph % (Auto) 27.7 % 06/21/25 03:59 Millard % (Auto) 8.3 % 06/21/25 03:59 Eos % (Auto) 1.4 % 06/21/25 03:59 Baso % (Auto) 0.5 % 06/21/25 03:59 Neut # (Auto) 6.06 10^3/uL (1.8-7.7) 06/21/25 03:59 Lymph # (Auto) 2.7 10^3/uL (0.8-4.8) 06/21/25 03:59 Millard # (Auto) 0.8 10^3/uL (0.2-0.9) 06/21/25 03:59 Eos # (Auto) 0.1 10^3/uL (0.0-0.8) 06/21/25 03:59 Baso # (Auto) 0.1 10^3/uL (0.0-0.1) 06/21/25 03:59 Nucleated RBC % (auto) 0 % 06/21/25 03:59 Nucleated RBCs # 0.0 /100WBC 06/21/25 03:59 Sodium 138 mmol/L (136-145) 06/21/25 03:59 Potassium 4.0 mmol/L (3.5-5.1) 06/21/25 03:59 Chloride 103 mmol/L (98-107) 06/21/25 03:59 Carbon Dioxide 23 mmol/L (22-29) 06/21/25 03:59 Anion Gap 16.0 (5-19) 06/21/25 03:59 BUN 16 mg/dL (6-20) 06/21/25 03:59 Creatinine 0.6 mg/dL (0.5-0.9) 06/21/25 03:59 GFR Calculation 104.6 mL/min (90-130) 06/21/25 03:59 Glucose 96 mg/dL (65-115) 06/21/25 03:59 Calculated Osmolality 287 mOsm/kg (285-295) 06/21/25 03:59 Calcium 9.4 mg/dL (8.5-10.5) 06/21/25 03:59 Magnesium 2.1 mg/dL (1.7-2.3) 06/21/25 03:59 Total Bilirubin 0.2 mg/dL (0.15-1.2) 06/17/25 10:23 AST 20 U/L (0-32) 06/17/25 10:23 ALT 12 U/L (0-33) 06/17/25 10:23 Alkaline Phosphatase 118 U/L (35-105) H 06/17/25 10:23 Troponin T Baseline < 6 ng/L (0-10) 06/17/25 10:23 Troponin T 120 Minute < 6.0 ng/L (0-10) 06/17/25 12:18 Delta Troponin T 0 ABS# (0-10) 06/17/25 12:18 Troponin T Hi Sens 6Hr < 6.0 ng/L (0-10) 06/17/25 15:59 Troponin T Hi Sens 6Hr Delta 0 ng/L (0-12) 06/17/25 15:59 Total Protein 7.3 g/dL (6.6-8.7) 06/17/25 10:23 Albumin 4.7 g/dL (3.5-5.2) 06/17/25 10:23 Globulin 2.6 g/dL (1.3-4.6) 06/17/25 10:23 Triglycerides 319 mg/dL (0-150) H 06/20/25 03:57 Cholesterol 268 mg/dL (0-200) H 06/20/25 03:57 LDL Cholesterol, Calc 165 mg/dL (50-129) H 06/20/25 03:57 HDL Cholesterol 39 mg/dL (60-100) L 06/20/25 03:57 LDL/HDL Ratio 4.23 RATIO (0.00-3.22) H 06/20/25 03:57 Cholesterol/HDL Ratio 6.87 mg/dL (0.0-4.40) H 06/20/25 03:57 Lipase 42 U/L (13-60) 06/18/25 02:41 Vitals Last Vital Signs Temp 97.1 F L 06/21/25 07:15 Pulse 77 06/21/25 07:15 Resp 18 06/21/25 08:38 BP 125/85 06/21/25 07:15 Pulse Ox 98 06/21/25 08:38 O2 Del Method Room Air 06/21/25 08:38 Discharge Plan Discharge Patient Disposition: Home Condition: Stable Prescriptions: New aspirin 81 mg capsule 81 mg PO DAILY Qty: 30 0RF atorvastatin 40 mg Tablet 40 mg PO BEDTIME Qty: 30 0RF clopidogrel 75 mg Tablet 75 mg PO DAILY Qty: 30 0RF metoprolol succinate 25 mg capsule,sprinkle,ER 24hr 25 mg PO DAILY Qty: 30 0RF amlodipine 5 mg tablet 5 mg PO DAILY Qty: 30 0RF losartan 25 mg tablet 25 mg PO DAILY Qty: 30 0RF nitroglycerin 0.4 mg tablet, sublingual 0.4 mg sublingual Q5M PRN (Reason: chest pain) Qty: 10 0RF Rx Instructions: do not exceed 3 doses per episode Continued albuterol sulfate [Ventolin HFA] 90 mcg/actuation HFA aerosol inhaler 2 puff inhalation QID PRN (Reason: shortness of breath or wheezing) Qty: 8.5 5RF black seed 4.5 gram/5 mL Oil 450 g PO DAILY Discontinued astaxanthin 12 mg Capsule 12 mg PO DAILY Discharge Order = DC NOW: Discharge Order (Routine); Ordered 06/21/25 Ordered By: Drea Erazo Referrals: Jahaira Negron MD [Physician, Cardiology] - 07/06/25 11:15 am Evy Morales MD [Primary Care Provider, Family Practice] - 07/10/25 8:30 am Shani Puckett FNP [Nurse Practitioner, Cardiology] - 7-10 days Discharge Diet: Cardiac Discharge Activity: Limit activity as instructed Patient Instructions: Metoprolol (By mouth) (Lopressor, Toprol XL), Aspirin (By mouth), Amlodipine (By mouth), Atorvastatin (By mouth) (Lipitor, Atorvaliq), Clopidogrel (By mouth) (Plavix), Coronary Angioplasty (DC), Opioid Safety, Post Angiogram Home Care Instructions, Patient Portal & Sparkle Instructions Discharge Attestations Time Spent in Discharge Care*: less than 30 min Quality Metrics Clinical Quality Measures [ No reported AMI, CVA or VTE this stay] Coding Level of Care Code Acute Code for Chg Fwd Diagnoses Elevated lipase R74.8 Superior mesenteric artery stenosis K55.1 Atypical chest pain R07.89 Costochondritis M94.0
[2025-06-21 11:30] VITALS: BP 138/81; PULSE 57; RESP 18; TEMP 36.4; O2SAT 98
--- NOTE | 2025-06-21 12:20 | PM.PN ---
Subjective Subjective: Patient is feeling much better. Had PCI of the proximal LAD yesterday. No recurrence of chest pain since then. Vital signs are stable. No hematoma bleeding from the arterial puncture site Medications: Medication Review Details: Current Medications Albuterol Sulfate (Albuterol 2.5 Mg/3 Ml Neb) 2.5 mg INHALATION QID.RESPIRATORY PRN PRN Reason: shortness of breath or wheezing Amlodipine Besylate (Amlodipine 10 Mg Tablet) 5 mg PO DAILY [facility] Last Admin: 06/21/25 08:46 Dose: 5 mg Aspirin (Aspirin 325 Mg Tablet) 81 mg PO DAILY [facility] Last Admin: 06/21/25 08:46 Dose: 81 mg Atorvastatin Calcium (Atorvastatin 40 Mg Tablet) 40 mg PO BEDTIME [facility] Last Admin: 06/20/25 20:05 Dose: 40 mg Clopidogrel Bisulfate (Clopidogrel 75 Mg Tablet) 75 mg PO DAILY [facility] Last Admin: 06/21/25 08:46 Dose: 75 mg Lorazepam (Lorazepam 0.5 Mg Tablet) 0.5 mg PO BEDTIME PRN PRN Reason: INSOMNIA Last Admin: 06/20/25 20:05 Dose: 0.5 mg Metoprolol Tartrate (Metoprolol Tartrate 25 Mg Tablet) 25 mg PO BID@0900,2100 [facility] Last Admin: 06/21/25 08:46 Dose: 25 mg Morphine Sulfate (Morphine 4 Mg/Ml Sdv 1 Ml) 4 mg IVP Q4H PRN PRN Reason: SEVERE PAIN Last Admin: 06/20/25 20:06 Dose: 4 mg Ondansetron HCl (Ondansetron 2 Mg/Ml Sdv 2 Ml) 4 mg IVP Q8H PRN PRN Reason: vomiting, or N/V if npo Ondansetron HCl (Ondansetron 2 Mg/Ml Sdv 2 Ml) 4 mg IVP Q2M PRN PRN Reason: NAUSEA Oxycodone HCl (Oxycodone 5 Mg Ir Tab/Cap) 5 mg PO Q6H PRN PRN Reason: SEVERE PAIN Pantoprazole Sodium (Pantoprazole 40 Mg Sdv) 40 mg IVP Q12H [facility] Last Admin: 06/21/25 06:17 Dose: 40 mg Vitals/I&O/Wt Last Vital Signs Temp 97.5 F L 06/21/25 11:30 Pulse 57 L 06/21/25 11:30 Resp 18 06/21/25 11:30 BP 138/81 06/21/25 11:30 Pulse Ox 98 06/21/25 11:30 O2 Del Method Room Air 06/21/25 11:30 06/20/25 06/21/25 06/21/25 22:59 06:59 14:59 Intake Total 1000 / 1000 Balance 1000 / 1000 Weight last 48 hrs Weight 142 lb 2 oz Weight 142 lb 9 oz Physical Exam Narrative: GENERAL: The patient is alert and oriented times three. Not in any acute distress. HEENT: No significant pallor, icterus or lymphadenopathy.Oral cavity: There are no mucous membrane lesions. NECK: Trachea appears to be central. No masses noted. No JVD or thyromegaly appreciated. RESPIRATORY: Chest is symmetrical. No intercostals muscle retraction or any accessory muscle activation. There is no chest wall tenderness. Breath sounds are heard bilaterally. No rales or rhonchi heard. No evidence of any consolidation. BREASTS: Deferred. HEART: The heart sounds are normal. No S3 or S4. No significant murmurs. No pericardial rub ABDOMEN: No vessel pulsations or distention. No tenderness. No organomegaly appreciated. Bowel sounds are normally heard. : Deferred. RECTAL: Deferred. LYMPHATIC: No lymphadenopathy noted in the neck. EXTREMITIES: No edema or cyanosis. No clubbing. MUSCULOSKELETAL: No acute joint deformities or swelling SKIN: There are no significant rashes or ecchymosis NEUROPSYCHIATRIC: The patient is alert and oriented x3. Appears to be in a good mood. No tremors or rigidity noted. Data 06/21/25 03:59 06/21/25 03:59 Other Labs: Laboratory Last Values WBC 9.79 10^3/uL (3.29-11.43) 06/21/25 03:59 RBC 4.24 10^6/uL (3.85-5.65) 06/21/25 03:59 Hgb 13.50 g/dL (11.27-16.99) 06/21/25 03:59 Hct 40.0 % (36-47) 06/21/25 03:59 MCV 94.3 fl (85-98) 06/21/25 03:59 MCH 31.8 pg (27-33) 06/21/25 03:59 MCHC 33.8 g/dL (30-55) 06/21/25 03:59 RDW 11.9 % (12.1-15.1) L 06/21/25 03:59 Plt Count 223 10^3/cmm (157-399) 06/21/25 03:59 MPV 10.6 fL (7.4-10.4) H 06/21/25 03:59 Neut % (Auto) 61.9 % 06/21/25 03:59 Lymph % (Auto) 27.7 % 06/21/25 03:59 Love % (Auto) 8.3 % 06/21/25 03:59 Eos % (Auto) 1.4 % 06/21/25 03:59 Baso % (Auto) 0.5 % 06/21/25 03:59 Neut # (Auto) 6.06 10^3/uL (1.8-7.7) 06/21/25 03:59 Lymph # (Auto) 2.7 10^3/uL (0.8-4.8) 06/21/25 03:59 Love # (Auto) 0.8 10^3/uL (0.2-0.9) 06/21/25 03:59 Eos # (Auto) 0.1 10^3/uL (0.0-0.8) 06/21/25 03:59 Baso # (Auto) 0.1 10^3/uL (0.0-0.1) 06/21/25 03:59 Nucleated RBC % (auto) 0 % 06/21/25 03:59 Nucleated RBCs # 0.0 /100WBC 06/21/25 03:59 Sodium 138 mmol/L (136-145) 06/21/25 03:59 Potassium 4.0 mmol/L (3.5-5.1) 06/21/25 03:59 Chloride 103 mmol/L (98-107) 06/21/25 03:59 Carbon Dioxide 23 mmol/L (22-29) 06/21/25 03:59 Anion Gap 16.0 (5-19) 06/21/25 03:59 BUN 16 mg/dL (6-20) 06/21/25 03:59 Creatinine 0.6 mg/dL (0.5-0.9) 06/21/25 03:59 GFR Calculation 104.6 mL/min (90-130) 06/21/25 03:59 Glucose 96 mg/dL (65-115) 06/21/25 03:59 Calculated Osmolality 287 mOsm/kg (285-295) 06/21/25 03:59 Calcium 9.4 mg/dL (8.5-10.5) 06/21/25 03:59 Magnesium 2.1 mg/dL (1.7-2.3) 06/21/25 03:59 Total Bilirubin 0.2 mg/dL (0.15-1.2) 06/17/25 10:23 AST 20 U/L (0-32) 06/17/25 10:23 ALT 12 U/L (0-33) 06/17/25 10:23 Alkaline Phosphatase 118 U/L (35-105) H 06/17/25 10:23 Troponin T Baseline < 6 ng/L (0-10) 06/17/25 10:23 Troponin T 120 Minute < 6.0 ng/L (0-10) 06/17/25 12:18 Delta Troponin T 0 ABS# (0-10) 06/17/25 12:18 Troponin T Hi Sens 6Hr < 6.0 ng/L (0-10) 06/17/25 15:59 Troponin T Hi Sens 6Hr Delta 0 ng/L (0-12) 06/17/25 15:59 Total Protein 7.3 g/dL (6.6-8.7) 06/17/25 10:23 Albumin 4.7 g/dL (3.5-5.2) 06/17/25 10:23 Globulin 2.6 g/dL (1.3-4.6) 06/17/25 10:23 Triglycerides 319 mg/dL (0-150) H 06/20/25 03:57 Cholesterol 268 mg/dL (0-200) H 06/20/25 03:57 LDL Cholesterol, Calc 165 mg/dL (50-129) H 06/20/25 03:57 HDL Cholesterol 39 mg/dL (60-100) L 06/20/25 03:57 LDL/HDL Ratio 4.23 RATIO (0.00-3.22) H 06/20/25 03:57 Cholesterol/HDL Ratio 6.87 mg/dL (0.0-4.40) H 06/20/25 03:57 Lipase 42 U/L (13-60) 06/18/25 02:41 A&P Assessment and plan 1. Atherosclerotic heart disease of [place] coronary artery with other forms of angina pectoris: Patient s/p cardiac catheterization, status post PCI of the proximal to mid LAD. Currently remained stable. May continue on the current medications. Continue Plavix and aspirin 2. Nicotine dependence due to vaping tobacco product: Patient is strongly advised to stay away from the smoking/vaping 3. Elevated BP without diagnosis of hypertension: Blood pressure is mildly elevated. I may start her on losartan 25 mg p.o. daily along with the other medications. May consider starting on Entresto as an outpatient 4. Hypercholesterolemia: Continue on the current medication. Lipid and liver profile in 2 months 5. Gastroesophageal reflux disease without esophagitis: May continue on the current medications. 6. Left ventricular dysfunction: Most likely related to underlying coronary ischemia. No evidence of any heart failure at this time. Will start her on losartan as a bridge to was Entresto Plan: If the patient continues remain stable, may be discharged home today. [facility]ment [facility] 3 weeks. Losartan 25 mg p.o. daily in addition to current medications. Continue Plavix , aspirin and Lipitor PDMP PDMP Reviewed: Not Reviewed Attestations Medical Necessity Statement*: Possible discharge home today Coding Level of Care Code 17014 Diagnoses Atherosclerotic heart disease of [place] coronary artery with other forms of angina pectoris I25.118 Nicotine dependence due to vaping tobacco product F17.290 Elevated BP without diagnosis of hypertension R03.0 Hypercholesterolemia E78.00 Gastroesophageal reflux disease without esophagitis K21.9 Esophagitis presence: without esophagitis Left ventricular dysfunction I51.9
[2025-06-21 13:56] VITALS: BP 138/81; PULSE 57; RESP 18; TEMP 36.4; O2SAT 96
== END 2025-06-21 13:57 | disposition home or self-care (01) | DRG 321 ==
LOC: ER 10:24 → ICU 14:14 → MEDSURG 14:36 → CSU 06-19 21:41
PROVIDERS: Emergency Medicine; Internal Medicine; Internal Medicine Cardiovascular Disease; Admitting Provider Internal Medicine; Emergency Provider Family Medicine; PCP Family Medicine; Visit Provider Internal Medicine
PROC: 027034Z Dilation of Coronary Artery, One Artery with Drug-eluting Intraluminal Device, Percutaneous Approach (ICD-10-PCS; principal; 2025-06-20 07:45)
DX: I25.118 Atherosclerotic heart disease of native coronary artery with other forms of angina pectoris (principal); K85.90 Acute pancreatitis without necrosis or infection, unspecified; K55.1 Chronic vascular disorders of intestine; F17.290 Nicotine dependence, other tobacco product, uncomplicated; E78.00 Pure hypercholesterolemia, unspecified; K21.9 Gastro-esophageal reflux disease without esophagitis; J44.9 Chronic obstructive pulmonary disease, unspecified; M79.7 Fibromyalgia; M94.0 Chondrocostal junction syndrome [Tietze]; F10.11 Alcohol abuse, in remission; R03.0 Elevated blood-pressure reading, without diagnosis of hypertension; Z87.820 Personal history of traumatic brain injury; Z85.41 Personal history of malignant neoplasm of cervix uteri; Z82.49 Family history of ischemic heart disease and other diseases of the circulatory system
CPT/HCPCS: 36415; 71045; 74177; 78452; 80048; 80053; 80061; 83690; 83735; 84484; 85025; 85347; 92921; 92978; 93005; 93017; 93306; 93458; 93571; 96372; 96375; 99152; 99153; 99285; A9500; C1725; C1753; C1769; C1874; C1887; C1894; C9600; G0378; J1200; J1644; J1650; J2250; J2270; J2470; J2785; J3010; J3490; J3535; J7030; J7042; J9999; Q9967

== ENCOUNTER 2025-06-27 20:40 | Observation (INO) | payer OTHER, SELFPAY ==
--- NOTE | 2025-06-27 20:41 | XRR_ITS ---
PROCEDURE INFORMATION: Exam: XR Chest Exam date and time: 06/27/2025 8:51 PM Age: 55 years old Clinical indication: Chest wall pain; Additional info: Cp TECHNIQUE: Imaging protocol: Radiologic exam of the chest. Views: 1 view. COMPARISON: CR (CHEST, ) 06/17/2025 10:44 AM FINDINGS: Lungs: Unremarkable. No consolidation. Pleural spaces: Unremarkable. No pleural effusion. No pneumothorax. Heart/Mediastinum: Unremarkable. No cardiomegaly. Bones/joints: Unremarkable. XR/XR chest 1V portable [id number] IMPRESSION: No acute findings.
--- NOTE | 2025-06-27 20:42 | ECG_ITS ---
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
[2025-06-27 20:44] VITALS: BP 122/68; PULSE 68; RESP 14; TEMP 36.4; O2SAT 100
--- OUTSIDE RECORDS SUMMARY | 2025-06-27 20:45 | XMS_ITS | Encounter Summary ---
Author Organization [facility] Address [address] [place] [address] Care Team Providers Care Debt Recovery Officer Name Role Phone Ekaterina Ryan DO Primary Care Provider [phone] Encounter Details Date Type Department Care Team (Latest Contact Info) Description 03/02/2006 Outpatient Historical [facility] Gen Spec [place] 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
--- OUTSIDE RECORDS SUMMARY | 2025-06-27 20:45 | XMS_ITS | Encounter Summary ---
Author Organization [facility] Address [address] [place] [address] Care Team Providers Care Terrazzo Finisher Helper Name Role Phone Ekaterina Ryan DO Primary Care Provider Encounter Details Date Type Department Care Team (Latest Contact Info) Description 06/03/2005 Outpatient Historical [facility] General Surgery [address] [address] [address] [place] [address] Terry Bentley MD [address] [facility], [address] [place], [place] [address] Umbilical hernia (Primary Dx) Social History Tobacco Use Types Packs/Day Years Used Date Smoking Tobacco: Never Assessed Comments Unknown Sex and Gender Information Value Date Recorded Sex Assigned at Not on file 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
--- OUTSIDE RECORDS SUMMARY | 2025-06-27 20:45 | XMS_ITS | Encounter Summary ---
Author Organization [facility] Address [address] [place] [address] Care Team Providers Care Professor Of Biostatistics Name Role Phone Ekaterina Ryan DO Primary Care Provider Encounter Details Date Type Department Care Team (Latest Contact Info) Description 06/09/2005 Outpatient Historical [facility] General Surgery [address] [address] [place] [address] Terry Bentley MD [address] [facility] [address], [address] [place], [place] [address] SURGERY FOLLOWUP NOS (Primary Dx) Social History Tobacco Use Types Packs/Day Years Used Date Smoking Tobacco: Never Assessed Comments Unknown Sex and Gender Information Value Date Recorded Sex Assigned at Not on file 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
--- OUTSIDE RECORDS SUMMARY | 2025-06-27 20:45 | XMS_ITS | Encounter Summary ---
Author Organization [facility] Address [address] [place] [address] Care Team Providers Care Copy Chaser Name Role Phone Ekaterina Ryan DO Primary Care Provider Encounter Details Date Type Department Care Team (Latest Contact Info) Description 08/25/2005 Outpatient Historical [facility] Medicine- [place] [address] [place] [address] Terry Bhakta MD [address] [place] [phone] SPASM OF MUSCLE (Primary Dx) Social History Tobacco Use Types Packs/Day Years Used Date Smoking Tobacco: Never Assessed Comments Unknown Sex and Gender Information Value Date Recorded Sex Assigned at Not on file 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
--- OUTSIDE RECORDS SUMMARY | 2025-06-27 20:45 | XMS_ITS | Encounter Summary ---
Author Organization [facility] Address [address] [place] [address] Care Team Providers Care Energy And Conservation Technician Name Role Phone Ekaterina Ryan DO Primary Care Provider Encounter Details Date Type Department Care Team (Latest Contact Info) Description 12/12/2003 Outpatient Historical [facility] Kwaku Mosley MD [address] [place], [place] [address] DIARRHEA NOS (Primary Dx) Social History Tobacco Use Types Packs/Day Years Used Date Smoking Tobacco: Never Assessed Comments Unknown Sex and Gender Information Value Date Recorded Sex Assigned at Not on file 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
--- OUTSIDE RECORDS SUMMARY | 2025-06-27 20:45 | XMS_ITS | Encounter Summary ---
Author Organization [facility] Address [address] [place] [address] Care Team Providers Care Building Mover Name Role Phone Ekaterina Ryan DO Primary Care Provider [phone] Encounter Details Date Type Department Care Team (Latest Contact Info) Description 02/09/2006 Outpatient Historical [facility] General Surgery [address] [address] [address] [place] [address] Terry Bentley MD [address] [facility], [address] [place], [place] [address] Follow-Up Examination, Following Unspecified Surgery (Primary Dx) Social History Tobacco Use Types Packs/Day Years Used Date Smoking Tobacco: Never Assessed Comments Unknown Sex and Gender Information Value Date Recorded Sex Assigned at Not on file 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
--- OUTSIDE RECORDS SUMMARY | 2025-06-27 20:45 | XMS_ITS | Encounter Summary ---
Author Organization [facility] Address [address] [place] [address] Care Team Providers Care Shader And Toner Name Role Phone Ekaterina Ryan DO Primary Care Provider Encounter Details Date Type Department Care Team (Latest Contact Info) Description 07/23/[address] [facility] Family Medicine- [place] [address] [place] [address] Simone Cruz MD NO ADDRESS ON FILE Influenza with Other Respiratory Manifestations (Primary Dx) Social History Tobacco Use Types Packs/Day Years Used Date Smoking Tobacco: Never Assessed Comments Unknown Sex and Gender Information Value Date Recorded Sex Assigned at Not on file Legal Sex Female 5:00 AM SOFTWARE SUPPORT REPRESENTATIVE Gender Identity Not on file Sexual Orientation Not on file documented as of this encounter Plan of Treatment Not on file documented as of this encounter Visit Diagnoses Diagnosis Influenza with other respiratory manifestations- Primary documented in this encounter Care Teams Shader And Toner Relationship Specialty Start Date End Date Ekaterina Ryan DO [address] [facility] [place] [address] PCP - General Family Practice 09/30/10 documented as of this encounter
--- OUTSIDE RECORDS SUMMARY | 2025-06-27 20:45 | XMS_ITS | Encounter Summary ---
Author Organization [facility] Address [address] [place] [address] Care Team Providers Care Saxophone Assembler Name Role Phone Ekaterina Ryan DO Primary Care Provider [phone] Encounter Details Date Type Department Care Team (Latest Contact Info) Description 12/28/2006 Outpatient Historical [facility] Family Medicine- [place] [address] [place] [address] Simone Cruz MD NO ADDRESS ON FILE Headache (Primary Dx) Social History Tobacco Use Types Packs/Day Years Used Date Smoking Tobacco: Never Assessed Comments Unknown Sex and Gender Information Value Date Recorded Sex Assigned at Not on file Legal Sex Female 5:00 AM COLORER HIDES AND 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
--- OUTSIDE RECORDS SUMMARY | 2025-06-27 20:45 | XMS_ITS | Encounter Summary ---
Author Organization [facility] Address [address] [place] [address] Care Team Providers Care Specialty Sales Representative Name Role Phone Ekaterina Ryan DO Primary Care Provider [phone] Encounter Details Date Type Department Care Team (Late st Contact Info) Description 11/03/2007 Outpatient Historical [facility] Family Medicine- [place] [address] [place] [address] Jayson Espinoza, GREEN WARE CASTER [address] [place] [address] Social History Tobacco Use Types Packs/Day Years Used Date Smoking Tobacco: Never Assessed Comments Unknown Sex and Gender Information Value Date Recorded Sex Assigned at Not on file Legal Sex Female 5:00 AM RESERVATIONS AGENT Gender Identity Not on file Sexual Orientation Not on file documented as of this encounter Plan of Treatment Not on file documented as of this encounter Visit Diagnoses Not on filedocumented in this encounter Care Teams Specialty Sales Representative Relationship Specialty Start Date End Date Ekaterina Ryan DO [address] [place] [address] PCP - General Family Practice 09/30/10 documented as of this encounter
--- OUTSIDE RECORDS SUMMARY | 2025-06-27 20:45 | XMS_ITS | Encounter Summary ---
Author Organization [facility] Address [address] [place] [address] Care Team Providers Care Yeast Supervisor Name Role Phone Ekaterina Ryan DO Primary Care Provider Encounter Details Date Type Department Care Team (Latest Contact Info) Description 01/08/2004 Outpatient Historical [facility] Medicine- [place] [address] [place] [address] Terry Bhakta MD [address] [place] [phone] PYELONEPHRITIS NOS (Primary Dx) Social History Tobacco Use Types Packs/Day Years Used Date Smoking Tobacco: Never Assessed Comments Unknown Sex and Gender Information Value Date Recorded Sex Assigned at Not on file 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 [place] [place] [address] PCP - General Family Practice 09/30/10 documented as of this encounter
--- OUTSIDE RECORDS SUMMARY | 2025-06-27 20:45 | XMS_ITS | Encounter Summary ---
Author Organization [facility] Address [address] [place] [address] Care Team Providers Care Wax Pattern Repairer Name Role Phone Ekaterina Ryan DO Primary Care Provider Encounter Details Date Type Department Care Team (Late st Contact Info) Description 11/11/2005 Outpatient Historical [facility] McTerry fields MD [address] [facility], [address] [place], [place] [address] Social History Tobacco Use Types Packs/Day Years Used Date Smoking Tobacco: Never Assessed Comments Unknown Sex and Gender Information Value Date Recorded Sex Assigned at Not on file Legal Sex Female 5:00 AM CONE OPERATOR Gender Identity Not on file Sexual Orientation Not on file documented as of this encounter Plan of Treatment Not on file documented as of this encounter Procedures Procedure Name Priority Date/Time Associated Diagnosis Comments CT ABDOMEN PELVIS W CONTRAST Routine 11/11/2005 8:45 AM CONE OPERATOR documented in this encounter Results * CT ABDOMEN PELVIS W CONTRAST (11/11/2005 8:45 AM CONE OPERATOR) Anatomical Region Laterality Modality Abdomen Other 11/11/2005 8:45 AM CONE OPERATOR Narrative 11/11/2005 8:[address] ABDOMEN AND PELVIS: 11-11-05 CLINICAL INFORMATION [...] for more specific assessment if clinically warranted. [facility] D: 11-11-05 0959 Dictated By: Rubin Chowdary [...] performed formore specific assessment if clinically warranted. [facility] D: 11-11-05 0959 Dictated By: Rubin Chowdary M.D. Electronically Signed By: Rubin Chowdary M.D. Date Signed: 11/11/05 us Terry Bentley MD CT ORDERABLES Final Result documented in this encounter Visit Diagnoses Not on filedocumented in this encounter Care Teams Wax Pattern Repairer Relationship Specialty Start Date End Date Ekaterina Ryan DO [address] [place] [address] PCP - General Family Practice 09/30/10 documented as of this encounter
--- OUTSIDE RECORDS SUMMARY | 2025-06-27 20:45 | XMS_ITS | Encounter Summary ---
Author Organization [facility] Address [address] [place] [address] Care Team Providers Care Physician Surgeon Name Role Phone Ekaterina Ryan DO Primary Care Provider Encounter Details Date Type Department Care Team (Late st Contact Info) Description 12/12/2003 Outpatient Historical [facility] Social History Tobacco Use Types Packs/Day Years Used Date Smoking Tobacco: Never Assessed Comments Unknown Sex and Gender Information Value Date Recorded Sex Assigned at Not on file Legal Sex Female 5:00 AM MOLASSES AND CARAMEL OPERATOR Gender Identity Not on file Sexual Orientation Not on file documented as of this encounter Plan of Treatment Not on file documented as of this encounter Visit Diagnoses Not on filedocumented in this encounter Care Teams Physician Surgeon Relationship Specialty Start Date End Date Ekaterina Ryan DO [address] [place] [address] PCP - General Family Practice 09/30/10 documented as of this encounter
--- OUTSIDE RECORDS SUMMARY | 2025-06-27 20:45 | XMS_ITS | Encounter Summary ---
Author Organization [facility] Address [address] [place] [address] Care Team Providers Care Soda Jerker Name Role Phone Ekaterina Ryan DO Primary Care Provider Encounter Details Date Type Department Care Team (Latest Contact Info) Description 01/08/2004 Outpatient Historical [facility] Medicine- [place] [address] [place] [address] Terry Bhakta MD [address] [place] [phone] PYELONEPHRITIS NOS (Primary Dx) Social History Tobacco Use Types Packs/Day Years Used Date Smoking Tobacco: Never Assessed Comments Unknown Sex and Gender Information Value Date Recorded Sex Assigned at Not on file 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
--- OUTSIDE RECORDS SUMMARY | 2025-06-27 20:45 | XMS_ITS | Encounter Summary ---
Author Organization [facility] Address [address] [place] [address] Care Team Providers Care Chemical Plant Manager Name Role Phone Ekaterina Ryan Primary Care Provider Encounter Details Date Type Department Care Team (Latest Contact Info) Description 05/29/2005 Outpatient Historical [facility] [address] [place] [address] Terry Bhakta MD [address] [place] [address] ABDOMINAL PAIN UNSPEC SITE (Primary Dx) Social History Tobacco Use Types Packs/Day Years Used Date Smoking Tobacco: Never Assessed Comments Unknown Sex and Gender Information Value Date Recorded Sex Assigned at Not on file 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
--- OUTSIDE RECORDS SUMMARY | 2025-06-27 20:45 | XMS_ITS | Clinical Summary ---
Author Organization [facility] Address [address] [facility] [place] [address] Care Team Providers Care Sports Development Officer Name Role Phone ConnorEkaterina bertrand Wilber LEMONS Primary Care Provider Allergies Active Allergy Reactions Criticality Noted Date Comments Tetanus Toxoid Swelling High 12/19/2018 Topiramate Anaphylaxis High 12/19/2018 Medications albuterol HFA 90 mcg inhalerIndication s:COPD with exacerbation ([facility]) INHALE 2 PUFFS BY MOUTH EVERY 6 HOURS NEEDED FOR SHORTNESS OF BREATH 8.5 Gram 11 1 Active fluconazole (DIFLUCAN) 100 mg tabletIndications :Antibiotic-induc ed yeast infection Take 1 Tablet (100 mg) by mouth daily. 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
--- OUTSIDE RECORDS SUMMARY | 2025-06-27 20:45 | XMS_ITS | Encounter Summary ---
Author Organization [facility] Address [address] [place] [address] Care Team Providers Care Ring Striker Name Role Phone Ekaterina Ryan DO Primary Care Provider Encounter Details Date Type Department Care Team (Latest Contact Info) Description 04/11/2007 Outpatient Historical [facility] Orthopedics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
--- OUTSIDE RECORDS SUMMARY | 2025-06-27 20:45 | XMS_ITS | Encounter Summary ---
Author Organization [facility] Address [address] [place] [address] Care Team Providers Care Hair Or Beauty Salon Manager Name Role Phone Ekaterina Ryan DO Primary Care Provider [phone] Encounter Details Date Type Department Care Team (Late st Contact Info) Description 11/10/2007 Outpatient Historical [facility] Family Medicine- [place] [address] [place] [address] Jayson Espinoza, ADJUSTMENT CLERK [address] [place] [address] Social History Tobacco Use Types Packs/Day Years Used Date Smoking Tobacco: Never Assessed Comments Unknown Sex and Gender Information Value Date Recorded Sex Assigned at Not on file Legal Sex Female 5:00 AM DIRECTOR OF SERVICES Gender Identity Not on file Sexual Orientation Not on file documented as of this encounter Plan of Treatment Not on file documented as of this encounter Visit Diagnoses Not on filedocumented in this encounter Care Teams Hair Or Beauty Salon Manager Relationship Specialty Start Date End Date Ekaterina Ryan DO [address] [place] [address] PCP - General Family Practice 09/30/10 documented as of this encounter
--- OUTSIDE RECORDS SUMMARY | 2025-06-27 20:45 | XMS_ITS | Encounter Summary ---
Author Organization [facility] Address [address] [place] [address] Care Team Providers Care Environmental Engineering Manager Name Role Phone Ekaterina Ryan DO Primary Care Provider [phone] Encounter Details Date Type Department Care Team (Latest Contact Info) Description 12/02/2005 Outpatient Historical [facility] General Surgery [address] [address] [address] [place] [address] Terry Bentley MD [address] [facility], [address] [place], [place] [address] SURGERY FOLLOWUP NOS (Primary Dx) Social History Tobacco Use Types Packs/Day Years Used Date Smoking Tobacco: Never Assessed Comments Unknown Sex and Gender Information Value Date Recorded Sex Assigned at Not on file 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
--- OUTSIDE RECORDS SUMMARY | 2025-06-27 20:45 | XMS_ITS | Encounter Summary ---
Author Organization [facility] Address [address] [place] [address] Care Team Providers Care Pet Care Associate Name Role Phone Ekaterina Ryan DO Primary Care Provider Encounter Details Date Type Department Care Team (Latest Contact Info) Description 11/27/2003 Outpatient Historical [facility] Medicine- [place] [address] [place] [address] Terry Bhakta MD [address] [place] [phone] ABDOMINAL PAIN OTHER SPEC SITE (Primary Dx) Social History Tobacco Use Types Packs/Day Years Used Date Smoking Tobacco: Never Assessed Comments Unknown Sex and Gender Information Value Date Recorded Sex Assigned at Not on file Legal Sex Female 5: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
--- OUTSIDE RECORDS SUMMARY | 2025-06-27 20:45 | XMS_ITS | Encounter Summary ---
Author Organization [facility] Address [address] [place] [address] Care Team Providers Care Cane Furniture Maker Name Role Phone Ekaterina Ryan Primary Care Provider Encounter Details Date Type Department Care Team (Latest Contact Info) Description 02/03/[address] 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
--- OUTSIDE RECORDS SUMMARY | 2025-06-27 20:45 | XMS_ITS | Encounter Summary ---
Author Organization [facility] Address [address] [place] [address] Care Team Providers Care Steamtable Worker Name Role Phone Ekaterina Ryan DO Primary Care Provider Encounter Details Date Type Department Care Team (Latest Contact Info) Description 06/16/2006 Outpatient Historical [facility] Medicine- [place] [address] [place] [address] Simone Cruz MD NO ADDRESS ON FILE Other Symptoms Involving Abdomen and Pelvis (Primary Dx); Abdominal Pain, Unspecified Site Social History Tobacco Use Types Packs/Day Years Used Date Smoking Tobacco: Never Assessed Comments Unknown Sex and Gender Information Value Date Recorded Sex Assigned at Not on file Legal Sex Female 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
--- OUTSIDE RECORDS SUMMARY | 2025-06-27 20:45 | XMS_ITS | Encounter Summary ---
Author Organization [facility] Address [address] [place] [address] Care Team Providers Care Tax Accounting Assistant Name Role Phone Ekaterina Ryan DO Primary Care Provider Encounter Details Date Type Department Care Team (Late st Contact Info) Description 10/24/2007 Outpatient Historical [facility] Family Medicine- [place] [address] [place] [address] Kyle Farmer MD [address] [place] [address] Social History Tobacco Use Types Packs/Day Years Used Date Smoking Tobacco: Never Assessed Comments Unknown Sex and Gender Information Value Date Recorded Sex Assigned at Not on file Legal Sex Female 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
--- OUTSIDE RECORDS SUMMARY | 2025-06-27 20:45 | XMS_ITS | Encounter Summary ---
Author Organization [facility] Address [address] [place] [address] Care Team Providers Care Business Continuity Strategy Director Name Role Phone Ekaterina Ryan DO Primary Care Provider Encounter Details Date Type Department Care Team (Latest Contact Info) Description 03/08/2006 Outpatient Historical [facility] Hilary Dewey MD [address] [place] [phone] Lump or Mass in Breast (Primary Dx) Social History Tobacco Use Types Packs/Day Years Used Date Smoking Tobacco: Never Assessed Comments Unknown Sex and Gender Information Value Date Recorded Sex Assigned at Not on file Legal Sex Female 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
--- OUTSIDE RECORDS SUMMARY | 2025-06-27 20:45 | XMS_ITS | Encounter Summary ---
Author Organization [facility] Address [address] [place] [address] Care Team Providers Care Tax Analyst Name Role Phone Ekaterina Ryan DO Primary Care Provider Encounter Details Date Type Department Care Team (Latest Contact Info) Description 02/14/2004 Outpatient Historical [facility] Medicine- [place] [address] [place] [address] Terry Bhakta MD [address] [place] [phone] OTITIS MEDIA NOS (Primary Dx) Social History Tobacco Use Types Packs/Day Years Used Date Smoking Tobacco: Never Assessed Comments Unknown Sex and Gender Information Value Date Recorded Sex Assigned at Not on file Legal Sex Female 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
--- OUTSIDE RECORDS SUMMARY | 2025-06-27 20:45 | XMS_ITS | Encounter Summary ---
Author Organization [facility] Address [address] [place] [address] Care Team Providers Care Special Collections Librarian Name Role Phone Ekaterina Ryan DO Primary Care Provider Encounter Details Date Type Department Care Team (Late st Contact Info) Description 02/19/2006 Outpatient Historical [facility] Family Medicine- [place] [address] [place] [address] Social History Tobacco Use Types Packs/Day Years Used Date Smoking Tobacco: Never Assessed Comments Unknown Sex and Gender Information Value Date Recorded Sex Assigned at Not on file Legal Sex Female 5:[address] MON[address] Gender Identity Not on file Sexual Orientation Not on file documented as of this encounter Plan of Treatment Not on file documented as of this encounter Visit Diagnoses Not on filedocumented in this encounter Care Teams Special Collections Librarian Relationship Specialty Start Date End Date Ekaterina Ryan DO [address] [place] [address] PCP - General Family Practice 09/30/10 documented as of this encounter
--- OUTSIDE RECORDS SUMMARY | 2025-06-27 20:45 | XMS_ITS | Encounter Summary ---
Author Organization [facility] Address [address] [place] [address] Care Team Providers Care Team Driver Name Role Phone Ekaterina Ryan DO Primary Care Provider Encounter Details Date Type Department Care Team (Latest Contact Info) Description 02/03/2006 Outpatient Historical [facility] Medicine- [place] [address] [place] [address] Lane George, NURSING EDUCATOR [address] [place] [address] Abdominal Pain, Unspecified Site (Primary Dx); Hepatomegaly; Other Malaise and Fatigue Social History Tobacco Use Types Packs/Day Years Used Date Smoking Tobacco: Never Assessed Comments Unknown Sex and Gender Information Value Date Recorded Sex Assigned at Not on file Legal Sex Female 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
--- OUTSIDE RECORDS SUMMARY | 2025-06-27 20:45 | XMS_ITS | Encounter Summary ---
Author Organization [facility] Address [address] [place] [address] Care Team Providers Care Hebrew Teacher Name Role Phone Ekaterina Ryan DO Primary Care Provider Encounter Details Date Type Department Care Team (Latest Contact Info) Description 07/07/2005 Outpatient Historical [facility] General Surgery [address] [address] [address] [place] [address] Terry Bentley MD [address] [facility], [address] [place], [place] [address] SURGERY FOLLOWUP NOS (Primary Dx) Social History Tobacco Use Types Packs/Day Years Used Date Smoking Tobacco: Never Assessed Comments Unknown Sex and Gender Information Value Date Recorded Sex Assigned at Not on file 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
--- OUTSIDE RECORDS SUMMARY | 2025-06-27 20:45 | XMS_ITS | Encounter Summary ---
Author Organization [employer] [facility] Address [address] [place] [address] Care Team Providers Care Radio Board Operator Name Role Phone Ekaterina Ryan DO Primary Care Provider Encounter Details Date Type Department Care Team (Latest Contact Info) Description 12/07/2003 Outpatient Historical [facility] Kwaku Mosley MD [address] [place] [address] DIARRHEA NOS (Primary Dx); TOBACCO USE DISORDER Social History Tobacco Use Types Packs/Day Years Used Date Smoking Tobacco: Never Assessed Comments Unknown Sex and Gender Information Value Date Recorded Sex Assigned at Not on file Legal Sex Female 5:00 AM VARYING EXCEPTIONALITIES TEACHER Gender Identity Not on file Sexual Orientation Not on file documented as of this encounter Plan of Treatment Not on file documented as of this encounter Visit Diagnoses Diagnosis Diarrhea- Primary Tobacco use disorder documented in this encounter Care Teams Radio Board Operator Relationship Specialty Start Date End Date Ekaterina Ryan DO [address] [place] [address] PCP - General Family Practice 09/30/10 documented as of this encounter
--- OUTSIDE RECORDS SUMMARY | 2025-06-27 20:45 | XMS_ITS | Encounter Summary ---
Author Organization [facility] Address [address] [place] [address] Care Team Providers Care Algorithm Developer Name Role Phone Ekaterina Ryan DO Primary Care Provider [phone] Encounter Details Date Type Department Care Team (Latest Contact Info) Description 06/02/2005 Outpatient Historical [facility] General Surgery [address] [address] [address] [place] [address] Terry Bentley MD [address] [facility], [address] [place], [place] [address] Umbilical hernia (Primary Dx) Social History Tobacco Use Types Packs/Day Years Used Date Smoking Tobacco: Never Assessed Comments Unknown Sex and Gender Information Value Date Recorded Sex Assigned at Not on file Legal Sex Female 5:00 AM RIG HAND Gender Identity Not on file Sexual Orientation Not on file documented as of this encounter Plan of Treatment Not on file documented as of this encounter Visit Diagnoses Diagnosis Umbilical hernia- Primary Umbilical hernia without mention of obstruction or gangrene documented in this encounter Care Teams Algorithm Developer Relationship Specialty Start Date End Date Ekaterina Ryan DO [address] [place] [address] PCP - General Family Practice 09/30/10 documented as of this encounter
--- OUTSIDE RECORDS SUMMARY | 2025-06-27 20:45 | XMS_ITS | Encounter Summary ---
Author Organization [facility] Address [address] [place] [address] Care Team Providers Care Caser Up Name Role Phone Ekaterina Ryan DO Primary Care Provider [phone] Encounter Details Date Type Department Care Team (Latest Contact Info) Description 09/28/2005 Outpatient Historical [facility] Medicine- [place] [address] [place] [address] Terry Bhakta MD [address] [place] [phone] FEMALE GENITAL SYMPTOMS NOS (Primary Dx) Social History Tobacco Use Types Packs/Day Years Used Date Smoking Tobacco: Never Assessed Comments Unknown Sex and Gender Information Value Date Recorded Sex Assigned at Not on file 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
--- OUTSIDE RECORDS SUMMARY | 2025-06-27 20:45 | XMS_ITS | Encounter Summary ---
Author Organization [facility] Address [address] [place] [address] Care Team Providers Care Retail Marketing Executive Name Role Phone Ekaterina Ryan DO Primary Care Provider Encounter Details Date Type Department Care Team (Latest Contact Info) Description 03/08/[address] 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
--- OUTSIDE RECORDS SUMMARY | 2025-06-27 20:45 | XMS_ITS | Encounter Summary ---
Author Organization [facility] Address [address] [place] [address] Care Team Providers Care Composite Engineer Name Role Phone Ekaterina Ryan DO Primary Care Provider Encounter Details Date Type Department Care Team (Latest Contact Info) Description 11/04/[address] [facility] General Surgery [address] [address] [address] [place] [address] [place] [address] [facility] [address] [place] [address] ABDOMINAL PAIN EPIGASTRIC (Primary Dx) Social History Tobacco Use Types Packs/Day Years Used Date Smoking Tobacco: Never Assessed Comments Unknown Sex and Gender Information Value Date Recorded Sex Assigned at Not on file Legal Sex Female 5:00 AM GENERAL ACCOUNTANT Gender Identity Not on file Sexual Orientation Not on file documented as of this encounter Plan of Treatment Not on file documented as of this encounter Visit Diagnoses Diagnosis Abdominal pain, epigastric- Primary documented in this encounter Care Teams Composite Engineer Relationship Specialty Start Date End Date Ekaterina Ryan DO [address] [place] [address] PCP - General Family Practice 09/30/10 documented as of this encounter
--- OUTSIDE RECORDS SUMMARY | 2025-06-27 20:45 | XMS_ITS | Encounter Summary ---
Author Organization [facility] Address [address] [place] [address] Care Team Providers Care Operating Systems Specialist Name Role Phone Ekaterina Ryan DO Primary Care Provider Encounter Details Date Type Department Care Team (Latest Contact Info) Description 05/29/2005 Outpatient Historical [facility] Medicine- [place] [address] [place] [address] Terry Bhakta MD [address] [place] [phone] ABDOMINAL PAIN UNSPEC SITE (Primary Dx) Social History Tobacco Use Types Packs/Day Years Used Date Smoking Tobacco: Never Assessed Comments Unknown Sex and Gender Information Value Date Recorded Sex Assigned at Not on file 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
--- OUTSIDE RECORDS SUMMARY | 2025-06-27 20:45 | XMS_ITS | Encounter Summary ---
Author Organization [facility] Address [address] [place] [address] Care Team Providers Care Farebox Repairer Name Role Phone Ekaterina Ryan DO Primary Care Provider Encounter Details Date Type Department Care Team (Latest Contact Info) Description 02/09/2006 Outpatient Historical [facility] [address] 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
--- OUTSIDE RECORDS SUMMARY | 2025-06-27 20:45 | XMS_ITS | Encounter Summary ---
Author Organization [facility] Address [address] [place] [address] Care Team Providers Care Hook Puller Name Role Phone Ekaterina Ryan DO Primary Care Provider [phone] Encounter Details Date Type Department Care Team (Latest Contact Info) Description 11/27/2003 Outpatient Historical [facility] Medicine- [place] [address] [place] [address] Terry Bhakta MD [address] [place] [phone] ABDOMINAL PAIN UNSPEC SITE (Primary Dx) Social History Tobacco Use Types Packs/Day Years Used Date Smoking Tobacco: Never Assessed Comments Unknown Sex and Gender Information Value Date Recorded Sex Assigned at Not on file 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
--- OUTSIDE RECORDS SUMMARY | 2025-06-27 20:45 | XMS_ITS | Encounter Summary ---
Author Organization [facility] Address [address] [place] [address] Care Team Providers Care Sole Painter Name Role Phone Ekaterina Ryan DO Primary Care Provider Encounter Details Date Type Department Care Team (Latest Contact Info) Description 11/18/2005 Outpatient Historical [facility] General Surgery [address] [address] [address] [place] [address] Terry Bentley MD [address] [facility], [address] [place], [place] [address] ABDOMINAL PAIN OTHER SPEC SITE (Primary Dx) Social History Tobacco Use Types Packs/Day Years Used Date Smoking Tobacco: Never Assessed Comments Unknown Sex and Gender Information Value Date Recorded Sex Assigned at Not on file 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
--- OUTSIDE RECORDS SUMMARY | 2025-06-27 20:46 | XMS_ITS | Encounter Summary ---
Author Organization [facility] Address [address] [place] [address] Care Team Providers Care Binding End Stitcher Name Role Phone Ekaterina Ryan DO Primary Care Provider Encounter Details Date Type Department Care Team (Latest Contact Info) Description 05/31/2006 Outpatient Historical [facility] Ophthalmology 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
--- OUTSIDE RECORDS SUMMARY | 2025-06-27 20:46 | XMS_ITS | Clinical Summary ---
Author Organization [facility] Address [address] [facility] Attn: Epic Prelude ADT ANITRA CANO [address] Care Team Providers Care Gear Coding Machine Operator Name Role Phone ConnorEkaterina bertrand Wilber LEMONS Primary Care Provider [phone] Allergies Active Allergy Reactions Criticality Noted Date Comments Bee Venom Protein (Honey Bee) Anaphylaxis High 06/01 [place] Anaphylaxis High 06/01/2023 Tetanus Toxoid Swelling High 12/19/2018 Topiramate Anaphylaxis High 12/19/2018 Medications albuterol sulfate HFA 90 mcg/actuation aerosol inhalerIndicatio ns:COPD with exacerbation ([facility]) Take 2 Puffs by inhalation every 4 hours as needed for Shortness of Breath or Wheezing. 8.5 Gram 5 3 Active fluticasone propionate (FLONASE) 50 mcg/spray [place], Suspension nasal inhalerIndicatio ns:Non-recurrent acute serous otitis [...] dysfunction of right eustachian tube Administer 1 [place] in each nostril 2 times daily. 30 [...] on file Legal Sex Female 2:41 AM PROVIDER ENROLLMENT SPECIALIST Gender Identity Not on file Sexual Orientation Not on file Last Filed Vital Signs Vital Sign Reading Time Taken Comments Blood Pressure 122/66 12/05/2024 10:44 AM PROVIDER ENROLLMENT SPECIALIST Pulse 88 12/05/2024 10:44 AM PROVIDER ENROLLMENT SPECIALIST Temperature 36.6 C (97.8 F) 12/05/2024 10:44 AM PROVIDER ENROLLMENT SPECIALIST Respiratory Rate 17 12/05/2024 10:44 AM PROVIDER ENROLLMENT SPECIALIST Oxygen Saturation 98% 12/05/2024 10:44 AM PROVIDER ENROLLMENT SPECIALIST Inhaled Oxygen Concentration - - Weight 68.6 kg (151 lb 3.2 oz) 12/05/2024 10:44 AM PROVIDER ENROLLMENT SPECIALIST Height 160 cm (5' 3 ) 12/05/2024 10:44 AM PROVIDER ENROLLMENT SPECIALIST Body Mass Index 26.78 12/05/2024 10:44 AM PROVIDER ENROLLMENT SPECIALIST Plan of Treatment Health Maintenance Due Date [...] 2025 03/07/2021 Insurance [employer] [id number] [address] [id number] Care Teams Gear Coding Machine Operator Relationship Specialty Start Date End Date Ekaterina Ryan DO [address] [place] [address] PCP - General Family Practice 09/30/10
--- OUTSIDE RECORDS SUMMARY | 2025-06-27 20:46 | XMS_ITS | Encounter Summary ---
Author Organization [facility] Address [address] [place] [address] Care Team Providers Care Rn Obgyn Name Role Phone Ekaterina Ryan DO Primary Care Provider Encounter Details Date Type Department Care Team (Latest Contact Info) Description 06/24/2005 Outpatient Historical [facility] General Surgery [address] [address] [address] [place] [address] Terry Bentley MD [address] [facility] [place], [place] [address] SURGERY FOLLOWUP NOS (Primary Dx) Social History Tobacco Use Types Packs/Day Years Used Date Smoking Tobacco: Never Assessed Comments Unknown Sex and Gender Information Value Date Recorded Sex Assigned at Not on file 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
--- OUTSIDE RECORDS SUMMARY | 2025-06-27 20:46 | XMS_ITS | Encounter Summary ---
Author Organization [facility] Address [address] [place] [address] Care Team Providers Care Longwall Headgate Operator Name Role Phone Ekaterina Ryan DO Primary Care Provider [phone] Encounter Details Date Type Department Care Team (Latest Contact Info) Description 05/19/2006 Outpatient Historical [facility] Family Medicine- [place] [address] [place] [address] Simone Cruz MD NO ADDRESS ON FILE Inflam Disease of Breast (Primary Dx); Irregular Menstruation Social History Tobacco Use Types Packs/Day Years Used Date Smoking Tobacco: Never Assessed Comments Unknown Sex and Gender Information Value Date Recorded Sex Assigned at Not on file 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
--- OUTSIDE RECORDS SUMMARY | 2025-06-27 20:46 | XMS_ITS | Encounter Summary ---
Author Organization [facility] Address [address] [place] [address] Care Team Providers Care Oncology Social Worker Name Role Phone Ekaterina Ryan DO Primary Care Provider [phone] Encounter Details Date Type Department Care Team (Latest Contact Info) Description 05/04/2006 Outpatient Historical [facility] Medicine- [place] [address] [place] [address] Simone Cruz MD NO ADDRESS ON FILE Headache (Primary Dx); Unspecified Visual Disturbance; Diarrhea; Esophageal Reflux Social History Tobacco Use Types Packs/Day Years Used Date Smoking Tobacco: Never Assessed Comments Unknown Sex and Gender Information Value Date Recorded Sex Assigned at Not on file 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
--- OUTSIDE RECORDS SUMMARY | 2025-06-27 20:46 | XMS_ITS | Encounter Summary ---
Author Organization [facility] Address [address] [place] [address] Care Team Providers Care Soils Analyst Name Role Phone Ekaterina Ryan DO Primary Care Provider Encounter Details Date Type Department Care Team (Latest Contact Info) Description 05/13/2006 Outpatient Historical [facility] Family Medicine- [place] [address] [place] [address] Simone Cruz MD NO ADDRESS ON FILE Headache (Primary Dx); Esophageal Reflux Social History Tobacco Use Types Packs/Day Years Used Date Smoking Tobacco: Never Assessed Comments Unknown Sex and Gender Information Value Date Recorded Sex Assigned at Not on file 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
[2025-06-27 21:09] LABS: Hematocrit 38.8 % (36-47); Hemoglobin 13.20 g/dL (11.27-16.99); Mean Corpuscular HGB Conc 34.0 g/dL (30-55); Mean Corpuscular Hemoglobin 32.0 pg (27-33); Mean Corpuscular Volume 94.2 fl (85-98); Nucleated Red Blood Cells % 0 %; Platelet Count 244 10^3/cmm (157-399); Red Blood Count 4.12 10^6/uL (3.85-5.65); White Blood Count 8.32 10^3/uL (3.29-11.43)
[2025-06-27 21:29] LABS: Troponin(5th) Baseline 9 ng/L (0-10)
[2025-06-27 21:47] VITALS: BP 195/87; PULSE 69; O2SAT 96
[2025-06-27 21:50] LABS: Alanine Aminotransferase 18 U/L (0-33); Albumin Level 4.7 g/dL (3.5-5.2); Alkaline Phosphatase 122 U/L (35-105); Anion Gap 16.7 (5-19); Aspartate Amino Transferase 24 U/L (0-32); Blood Urea Nitrogen 18 mg/dL (6-20); Calcium 10.2 mg/dL (8.5-10.5); Carbon Dioxide 25 mmol/L (22-29); Chloride 106 mmol/L (98-107); Creatinine Clr Calc Pharmacy 95.7481; Globulin 2.6 g/dL (1.3-4.6); Glucose 91 mg/dL (65-115); Lipase 42 U/L (13-60); Osmolality Calculated 299 mOsm/kg (285-295); Potassium 3.7 mmol/L (3.5-5.1); Sodium 144 mmol/L (136-145); Total Protein 7.3 g/dL (6.6-8.7)
[2025-06-27 22:17] VITALS: BP 113/53; PULSE 55; O2SAT 97
[2025-06-27 22:30] VITALS: BP 126/53; PULSE 62; O2SAT 96
--- NOTE | 2025-06-27 22:41 | ECG_ITS ---
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
[2025-06-27 23:00] VITALS: BP 118/52; PULSE 58; O2SAT 99
[2025-06-27 23:25] LABS: Troponin 5 2HR 8.93 ng/L (0-10)
[2025-06-27 23:26] LABS: Troponin 5 2HR Delta -0.07 ABS# (0-10)
[2025-06-28] VITALS (24 sets, daily range): BP systolic 97–157; BP diastolic 53–82; PULSE 55–94; RESP 14–23; TEMP 36.1–36.8; O2SAT 95–100
[2025-06-28] MEDS: nitroglycerin drip 50 MG/250 ML PREMIX IV (00:28)
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
[2025-06-28] MEDS: morphine 4 mg/mL SDV 1 mL 2 MG IVP ×4 (01:38→15:04)
[2025-06-28] MEDS: heparin 5,000 unit/mL INJ 1 mL 5000 UNIT SUBCUT (01:39)
--- NOTE | 2025-06-28 02:32 | ECG_ITS ---
[facility] Test Date: 2025-06-28 Pat Name: Bisi Gentile Department: Room: 111 Gender: Female [employer]: : 1970 Requested By: Catarina Veras Order Number: [id number] Reading MD: NANDINI BAKER Measurements Intervals [place] Rate: 54 P: 57 [place]: 175 QRS: 26 QRSD: 93 T: 19 QT: 468 QTc: 447 Interpretive Statements SINUS BRADYCARDIA Compared to ECG 06/27/2025 22:41:16 No significant changes Electronically Signed On 06-29-2025 20:22:17 CDT by NANDINI BAKER [email or web address]
[2025-06-28 03:16] LABS: Troponin 5 6HR 8.42 ng/L (0-10)
[2025-06-28 03:20] LABS: Troponin 5 6HR Delta -0.58 ng/L (0-12)
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
--- NOTE | 2025-06-28 11:37 | XACV_ITS ---
Exam Room: [facility] Ht: 160 cm Wt: 62 kg BSA: 1.67 m2 Gender: Female : 1970 Any Known Allergies: Other Exam Priority: Routine Procedure(s): Procedure Description: Diagnostic procedure Procedure Description: PCI procedure Procedure Description: Drug Eluting Coronary Stent Procedure Description: PTCA Procedure Description: Miscellaneous Procedure Description: ACT Procedure [facility] Status: Urgent Diagnostic Findings * Left Main has no disease. * Left Anterior Descending has no disease. * Right Coronary Artery has no disease. * Proximal Circumflex: significant 80% stenosis, MORRIS: 3 flow. * Mid Circumflex: severe 90% stenosis, MORRIS: 3 flow. * Ramus: significant 80% stenosis, MORRIS: 3 flow. * Coronary angiography shows right dominance. PCI Status: Urgent Interventional Findings * Proximal Circumflex: 80% stenosis treated with a AB MINI TREK 2.00X8 RX BALLOON, ROBERTA Sandhu LEAH 3.0X8 YVES, and ROBERTA WOLF EUPHORA RX [id number] BALLOON. 0% residual stenosis, MORRIS: 3 flow. * Mid Circumflex: 90% stenosis treated with a AB MINI TREK 2.00X12 RX BALLOON, and ROBERTA Sandhu LEAH 2.5X15 YVES. 0% residual stenosis, MORRIS: 3 flow. * Ramus: 80% stenosis treated with a AB MINI TREK 2.00X12 RX BALLOON, ROBERTA Sandhu LEAH 3.0X12 YVES, and MDGissel WOLF EUPHORA RX [id number] BALLOON. 0% residual stenosis, MORRIS: 3 flow. Conclusions 1. There is severe coronary artery disease with one vessel disease. 2. Proximal Circumflex was treated with a Balloon, Drug Eluting Stent, and Balloon. 3. Mid Circumflex was treated with a Balloon, and Drug Eluting Stent. 4. Ramus was treated with a Balloon, Drug Eluting Stent, and Balloon. Recommendations * 1-Return to inpatient for close monitoring and routine cath care 2-Risk factor modification for secondary prevention 3-Statin and aspirin 81 mg life-long, if tolerated 4-Patient was pre-loaded with 600 mg of Plavix, continue Plavix 75mg p.o. daily for at least one year. We will assess at the end of one year again to continue if further or not 5-Continue optimal medical management 6-Follow up with Dr. Lozano in four weeks and your primary care in 10 days. Interventional RX Recommendation: PCI w/o planned CABG Pressures Phase:Rest AO : 126 / 84 ( 104 ) @ 2:07:00 PM 146 / 73 ( 102 ) @ 2:15:00 PM 148 / 84 ( 111 ) @ 2:22:00 PM 152 / 87 ( 118 ) @ 2:35:00 PM 137 / 81 ( 107 ) @ 2:42:00 PM Clinical Evaluation EBL: 5mL-10mL Procedural Details Pre-Procedure Time Out. Identified patient by full name and date of as verbalized by the patient/guarantor. Does the consent match the physician's order: Yes. Accurate & Complete Informed Consent: Yes. Inpatient/Outpatient History & Physical on Chart: Yes. If H&P is completed, is and addenduem needed: No; If yes, is the addendum complete: N/A. Visualize and Verify Site with Patient/Guarantor: N/A. Relevant Radiology Images available: Yes. Pre-op teaching completed and patient verbalized understanding. The risks, benefits, and alternatives of sedation and/or procedure were discussed by physician. The patient agrees to continue. Procedure started. Physician arrived. Current Diagnosis : Chest Pain. [facility] Clinical Fraility Score: 3: Managing Well. 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 Chest Pain Symptom Assessment: Typical Angina Symptoms. Current diagnosis: Chest Pain. PERRLA. Strong, equal hand supervisor lace tearing bilaterally. Lungs clear x 5 lobes. IV Site on Arrival: 20 gauge in the left anticubital. IV Fluids: 0.9% NaCl at KVO. 0 mL infused prior to laborer sawmill. Pre Procedural Pulses: right radial was 2+. Oxygen started at 2liters/min via nasal canula. right groin was prepped with chloroprep then draped in the usual sterile fashion. right radial was prepped with chloroprep then draped in the usual sterile fashion. Baseline sample Acquired. HR: 60 BPM. Physician scrubbed in. Immediate Pre-Procedure Time Out. Correct Patient: Yes; Correct Procedure: Yes; Correct Site: Yes; Correct Patient Position: Yes; Correct Supplies: Yes; Dried Flammable Prep: Yes; Blood Products Available: N/A;. Lidocaine 1% infiltrated to the right radial. Arterial access obtained. A 5 georgian TIG catheter in over wire. Multiple views taken of left coronary artery. Catheter redirected to the RCA. Multiple views taken of right coronary artery. Rachel Clay RT(R) was relieved by Leonor Hitchcock RN, COLLECTION SUPERVISOR as monitoring person. Catheter removed over the exchange wire. PCI Indication: CAD (without ischemic symptoms). 6 georgian XB 3 guide catheter was inserted over the exchange J wire. Patient's family updated. ACT drawn. Results 302 seconds. Therapeutic limits - pre-heparin administration 90-150 seconds and monitoring heparin during a vascular procedure >250 seconds. Runthrough guidewire was advanced through the guide catheter to lesion in the mid Circ. Inflation number : 1 A AB MINI TREK 2.00X12 RX BALLOON was prepped and advanced across the Mid CX , then inflated to 8 SAM for 0:11 seconds. Inflation number: 2 The AB MINI TREK 2.00X12 RX BALLOON was reinflated across the Mid CX, to 12 SAM for 0:07 seconds. Balloon out. Inflation Number : 3 A ROBERTA Sandhu LEAH 2.5X15 YVES -Lot Number# [id number] Exp. was prepped and advanced across the Mid CX. The stent was deployed at 12 SAM for 0:13 seconds. Stent balloon out over wire. Results checked. Runthrough guidewire was advanced through the guide catheter to lesion in the Ostial Ramus. Inflation number: 1 The AB MINI TREK 2.00X12 RX BALLOON was reinflated across the Ramus, to 10 SAM for 0:16 seconds. Balloon out. Inflation Number : 2 A MDT R LEAH 3.0X12 YVES -Lot Number# [id number] Exp. was prepped and advanced across the Ramus. The stent was deployed at 8 SAM for 0:12 seconds. Stent balloon out over wire. Results checked. Inflation number : 3 A MDT NC EUPHORA RX [id number] BALLOON was prepped and advanced across the Ramus , then inflated to 12 SAM for 0:23 seconds. Inflation number: 4 The MDT NC EUPHORA RX [id number] BALLOON was reinflated across the Ramus, to 12 SAM for 0:12 seconds. Balloon out. Results checked. Inflation number : 1 A AB MINI TREK 2.00X8 RX BALLOON was prepped and advanced across the Prox CX , then inflated to 8 SAM for 0:09 seconds. Inflation number: 2 The AB MINI TREK 2.00X8 RX BALLOON was reinflated across the Prox CX, to 10 SAM for 0:09 seconds. Balloon out. Inflation Number : 3 A MDT R LEAH 3.0X8 YVES -Lot Number# [id number] Exp. was prepped and advanced across the Prox CX. The stent was deployed at 8 SAM for 0:22 seconds. Stent balloon out over wire. Results checked. Inflation number: 4 The MDT NC EUPHORA RX [id number] BALLOON was reinflated across the Prox CX, to 12 SAM for 0:10 seconds. Inflation number: 5 The MDT NC EUPHORA RX [id number] BALLOON was reinflated across the Prox CX, to 12 SAM for 0:12 seconds. Balloon out. Results checked. Wire(s) out. ACT drawn. Results 276 seconds. Therapeutic limits - pre-heparin administration 90-150 seconds and monitoring heparin during a vascular procedure >250 seconds. Guide catheter out over the exchange wire. Dr. Lozano scrubbed out. A TR Band was successful obtaining hemostatsis at the Right Radial artery insertion site. Post Procedure: Pulses reassessed and unchanged. PERRLA. Strong, equal hand supervisor lace tearing bilaterally. No VTE prophylaxis required. Medication's Wasted: Lidocaine 1% = 18 mL. Medication's Wasted: Nitro = 49.4 mg. Medication's Wasted: Heparin = 1000 units. Medication's Wasted: Other = Fentanyl 50 mcg. Total IV fluids: 70 mL. Post-op diagnosis: YVES to Ostial Ramus x 1, Ostial CX x 1, and Miid CX x 1. Complications: none. Estimated blood loss: 5mL-10mL. Responsiveness - Normal response to verbal stimuli; alert and oriented, PERRLA. Airway - Unaffected, no intervention required; spontaneous ventilation. Circulation: W/N/L, pulses unchanged. Nausea/Vomiting: No. Procedure completed. Patient transferred by bed to 1st floor. Vital chart was stopped. Access Site Site: Right Radial artery Sheath Size: 6 Fr Hemostasis Method: TR Band Hemostasis Success: Successful Procedure Medications Start: 12:58 PM Stop: 12:58 PM Medication: Versed Amount: 1 mg Route: I.V. Start: 12:58 PM Stop: 12:58 PM Medication: Fentanyl Amount: 50 mcg Route: I.V. Start: 1:01 PM Stop: 1:01 PM Medication: Versed 1 mg and Fentanyl 25 mcg Amount: 1 Route: I.V. Start: 1:03 PM Stop: 1:03 PM Medication: Nitrogylcerin Amount: 200 mcg Route: I.A. Start: 1:05 PM Stop: 1:05 PM Medication: Heparin Amount: 5000 units Route: I.V. Start: 1:07 PM Stop: 1:07 PM Medication: Fentanyl Amount: 25 mcg Route: I.V. Start: 1:15 PM Stop: 1:15 PM Medication: Nitrogylcerin Amount: 200 mcg Route: I.C. Start: 1:21 PM Stop: 1:21 PM Medication: Versed Amount: 1 mg Route: I.V. Start: 1:21 PM Stop: 1:21 PM Medication: Fentanyl Amount: 25 mcg Route: I.V. Start: 1:38 PM Stop: 1:38 PM Medication: Versed Amount: 1 mg Route: I.V. Start: 1:48 PM Stop: 1:48 PM Medication: Fentanyl Amount: 25 mcg Route: I.V. Start: 1:51 PM Stop: 1:51 PM Medication: Nitrogylcerin Amount: 200 mcg Route: I.C. I, the attending physician, have reviewed and verified all procedure medications. Yes, all medications given per verbal order History/Risk Factors Hypertension: No Dyslipidemia: Yes Peripheral Arterial Disease (PAD): No Myocardial Infarction (SC): No Obesity: No Renal Disease: No Tobacco Use: Current/Recent(w/in 1 year) Prior Interventions PCI: Yes CABG: No Valve Surgery: No Date of PCI: 06/20/2025 Report Signatures Finalized by Acosta Lozano MD on 07/17/2025 08:08 PM
--- NOTE | 2025-06-28 12:16 | PM.PN ---
Subjective Subjective: Patient continues with chest pain despite stent to LAD 1 week ago Awaiting to go to Supervisor Final Vitals/I&O/Wt Last Vital Signs Temp 98.2 F 06/28/25 11:52 Pulse 63 06/28/25 11:52 Resp 17 06/28/25 11:52 BP 144/76 06/28/25 11:52 Pulse Ox 100 06/28/25 11:52 O2 Del Method Room Air 06/28/25 11:52 06/27/25 06/28/25 06/28/25 22:59 06:59 14:59 Intake Total 121.9 / 121.9 760 / 760 Balance 121.9 / 121.9 760 / 760 Weight last 48 hrs Weight 61.779 kg Weight 61.734 kg Weight 61.235 kg Physical Exam Narrative: heart is regular normal S1-2 without clicks rubs or murmurs Lungs clear to auscultation without wheezes rales or rhonchi Abdomen nontender nondistended normal active bowel sounds no hepatosplenomegaly Extremities floor present no clubbing cyanosis or edema Data 06/27/25 21:00 06/27/25 21:00 A&P Assessment and plan 1. Chest pain: Atypical chest pain although similar to last week when she received stent. - Troponin and EKGs negative - Patient status post stent placement to LAD on 06/21/2025 - Continue full aspirin - To Supervisor Final today - Patient did not tolerate nitro drip Plan: GI and DVT prophylaxis in place PDMP PDMP Reviewed: Not Reviewed Attestations Medical Necessity Statement*: Patient is in with chest pain in the setting of coronary artery disease and stent placement a week ago returning to further evaluate constant chest pain patient is observation good for 23-hour stay and see what cardiology is saying on follow-up. Coding Level of Care Code Acute Code for [facility] Fwd Diagnoses Chest pain R07.9
--- NOTE | 2025-06-28 12:55 | W.PM.OPSUD ---
Surgery/Procedure H&P Update DATE OF PROCEDURE: June 28, 2025 DATE H&P PERFORMED: 06/28/25 H&P UPDATE INFORMATION: I have reviewed H&P completed within last 30 days, I have examined patient prior to procedure and No changes to prior documentation CHANGES TO PREVIOUS DOCUMENTATION: Recurrent and continuous chest status post PCI recently PREOP DIAGNOSIS: As above PATIENT REASSESSED PRIOR TO SEDATION, WITH NO CHANGE NOTED: Yes PHYSICAL EXAM: alert, oriented x 3, clear to auscultation bilaterally and regular rate & rhythm AIRWAY EVAL/ANESTHESIA PLAN: ASA II, Risks, benefits & alternatives of sedation and/or procedure discussed and Patient agrees to continue as planned ADDITIONAL INFORMATION: All risks and alternative were explained for the procedure. Patient understand 2% risk of stroke major bleed. Patient 5% risk of contrast-induced nephropathy urgent emergent vascular or coronary artery bypass surgery pseudoaneurysm bruising. Patient is and would like to proceed with it
--- NOTE | 2025-06-28 14:05 | P.PCN_ITS ---
Procedure Note: Date of procedure: 06/28/25 Pre-procedure diagnosis: Unstable angina Post-procedure diagnosis: same Procedure: Left heart cath was performed Left main: Normal LAD patent previously placed proximal stent without any stent thrombosis or in- stent restenosis Ramus intermedius ostial eccentric hazy moderate to severe lesion most likely the culprit Ostial left circumflex eccentric moderate 70 to 80% stenosis Mid circumflex moderate to high grade 80-90% stenosis PCI to ostial ramus intermediate with drug-eluting stent PCI to ostial circumflex with drug-eluting stent PCI to mid circumflex with drug-eluting Plan: Continue IV fluid 100 mL/h for next 10 hours Radial band as per protocol Discontinue heparin Continue nitro drip for blood pressure control we will switch her to p.o. medicine Patient can eat and drink Continue aspirin statin beta-pollo Plavix Full note to be dictated Coding Level of Care Code Acute Code for Jan Davenport
[2025-06-28] MEDS: ondansetron 2 mg/ML SDV 2 mL 4 MG IVP (15:09)
--- NOTE | 2025-06-28 18:39 | PC.NURSE ---
Shift SUmmary: Went for a cath procedure. 3 stents placed. Uneventful since return from metallurgy laboratory technician. Still has a complaints of chest pain, but it has decreased after the cath and continues to decrease further. Still working on removing air from TR band. Patient has been able to ambulate without complication, and has voided since.
[2025-06-29] VITALS (10 sets, daily range): BP systolic 92–141; BP diastolic 54–76; PULSE 61–87; RESP 13–20; TEMP 36.3–36.7; O2SAT 94–96
[2025-06-29] MEDS: heparin 5,000 unit/mL INJ 1 mL 5000 UNIT SUBCUT ×2 (01:42→08:32)
[2025-06-29 05:09] LABS: Hematocrit 34.2 % (36-47); Hemoglobin 11.20 g/dL (11.27-16.99); Mean Corpuscular HGB Conc 32.7 g/dL (30-55); Mean Corpuscular Hemoglobin 31.8 pg (27-33); Mean Corpuscular Volume 97.2 fl (85-98); Nucleated Red Blood Cells % 0 %; Platelet Count 196 10^3/cmm (157-399); Red Blood Count 3.52 10^6/uL (3.85-5.65); White Blood Count 9.06 10^3/uL (3.29-11.43)
[2025-06-29 05:25] LABS: Alanine Aminotransferase 15 U/L (0-33); Albumin Level 3.8 g/dL (3.5-5.2); Alkaline Phosphatase 96 U/L (35-105); Anion Gap 14.8 (5-19); Aspartate Amino Transferase 22 U/L (0-32); Blood Urea Nitrogen 8 mg/dL (6-20); Calcium 8.6 mg/dL (8.5-10.5); Carbon Dioxide 24 mmol/L (22-29); Chloride 106 mmol/L (98-107); Creatinine Clr Calc Pharmacy 115.3447; Globulin 2.5 g/dL (1.3-4.6); Glucose 94 mg/dL (65-115); Magnesium 2.1 mg/dL (1.7-2.3); Osmolality Calculated 290 mOsm/kg (285-295); Potassium 3.8 mmol/L (3.5-5.1); Sodium 141 mmol/L (136-145); Total Protein 6.3 g/dL (6.6-8.7)
--- NOTE | 2025-06-29 06:27 | PC.NURSE ---
TR band in place x 2 to right wrist at shift change. 2nd band removed - had to increase air by 3 ml in remaining band due to oozing. Tr Band air completely removed at 0030 after slow withdrawl due to oozing at site. This am TR band completed removed and fresh opsite applied to site. Old bruising noted down arm without change from previous shift report. Patient with two puncture sites under opsite due to previous heart cath site and this heart cath.
--- NOTE | 2025-06-29 08:14 | P.PN_ITS ---
<Statement entered by Acosta Lozano MD - 06/29/25 19:57> Patient was evaluated and cared for in conjunction with an advanced practice practitioner. I personally examined the patient and reviewed the chart and all pertinent data including imaging, telemetry, and laboratory results. I discussed the patient in detail with the advanced practice practitioner. Please see their note for complete H&P testing result and agreed upon plan of care for the patient. Subjective 2 Subjective: She has done well overnight, no angina overnight or this morning. No complications with right radial cath site, it is bruised and tender but there is no hematoma, pulse easily palpable. Vitals/I&O/Wt Last Vital Signs Temp 97.6 F 06/29/25 07:32 Pulse 72 06/29/25 07:32 Resp 19 H 06/29/25 07:32 BP 141/67 06/29/25 07:32 Pulse Ox 96 06/29/25 07:32 O2 Del Method Room Air 06/29/25 07:32 06/28/25 06/29/25 06/29/25 22:59 06:59 14:59 Intake Total 100 / 2160.833 1150 / 2160.833 Balance 100 / 2160.833 1150 / 2160.833 Weight last 48 hrs Weight 144 lb Weight 136 lb 3.2 oz Weight 136 lb 1.6 oz Weight 135 lb Physical Exam 2 Const: COMMON NORMALS: no acute distress and patient oriented x3 GENERAL APPEARANCE: cooperative ORIENTATION/CONSCIOUSNESS: Yes awake, Yes oriented to person, Yes oriented to place and Yes oriented to time Chest: COMMONS NORMALS: normal inspection of the chest and normal palpation of entire chest wall CHEST: Yes Symmetrical chest wall rise Resp: COMMON NORMALS: normal respiratory effort, No retractions, No use of accessory muscles and clear to auscultation bilaterally AUSCULTATION: clear to auscultation bilaterally Cardio: COMMON NORMALS: regular rate, regular rhythm, S1 normal heart sound present, S2 normal heart sound present, No gallops present (Cardio), No clicks present (Cardio), No murmurs present (Cardio) and No rub (Cardio) RATE: r egular rate RHYTHM: regular rhythm HEART SOUNDS: S1 normal heart sound present and S2 normal heart sound present PERIPHERAL PULSES: radial pulses present positive right 2+ and femoral pulses present positive right 2+ Neuro: COMMON NORMALS: patient oriented x3 and moves all extremities S ENSORIUM/ORIENTATION: Yes oriented to person, Yes oriented to place and Yes oriented to time Skin: WOUNDS: Yes surgical site (no hematoma palpable) Details: no odor Data 06/29/25 04:57 06/29/25 04:57 A&P Assessment and plan 1. Hx of placement of stent in anterior descending branch of left coronary artery: 2. Coronary artery disease of [place] artery of [place] heart with stable angina pectoris: 3. Left ventricular dysfunction: Plan: She is status post stent to the ramus intermedius and stent x 2 to the left circumflex. Chest pain has resolved, no shortness of breath or lower extremity edema. Will plan to discharge home, continuing aspirin, Plavix, atorvastatin, losartan. Adding Imdur today as well. She has follow-up with Dr. Negron in the clinic set up for 07/06/2025. PDMP PDMP Reviewed: Not Reviewed Attestations 2 Medical Necessity Statement*: Discharge home Coding Level of Care Code Acute Code for [facility] Fwd Diagnoses Hx of placement of stent in anterior descending branch of left coronary artery Z95.5 Coronary artery disease of [place] artery of [place] heart with stable angina pectoris I25.118 Associated angina: with stable angina [place] vs. transplanted heart: [place] heart Left ventricular dysfunction I51.9
--- NOTE | 2025-06-29 09:12 | PM.DCS ---
Discharge Providers Date of Admission: 06/27/25 23:45 Date of Discharge: June 29, 2025 Attending Provider at Admission: Wendy Barone MD Attending Provider at Discharge: Gavino Edwards DO Consults: Cardiology Primary Care Provider: Evy Morales MD Diagnoses at Discharge Discharge Diagnosis 1. Hx of placement of stent in anterior descending branch of left coronary artery: 2. Coronary artery disease of [place] artery of [place] heart with stable angina pectoris: 3. Left ventricular dysfunction: Reason for Visit Reason for Visit: CP Brief History: Patient returns to the hospital with chest pain after recent stent placement to the LAD on 06/21/2024. Troponins were negative EKG within normal limits. Patient was admitted for further cardiac workup Hospital Course Hospital Course Patient was admitted to the stepdown unit she was placed on nitro drip however did not tolerate this. She had aspirin and Plavix already on board after recent stent. Cardiology saw the patient and recommended repeat cath. Left main: Normal LAD patent previously placed proximal stent without any stent thrombosis or in-stent restenosis Ramus intermedius ostial eccentric hazy moderate to severe lesion most likely the culprit Ostial left circumflex eccentric moderate 70 to 80% stenosis Mid circumflex moderate to high grade 80-90% stenosis PCI to ostial ramus intermediate with drug-eluting stent PCI to ostial circumflex with drug-eluting stent PCI to mid circumflex with drug-eluting Patient with mild chest soreness and some bruising and edema to the right arm where the catheter was placed. Otherwise in stable improved condition. Await cardiology for final discharge. Physical Exam Narrative: heart is regular normal S1-2 without clicks rubs or murmurs Lungs clear to auscultation without wheezes rales or rhonchi Abdomen nontender nondistended normal active bowel sounds no hepatosplenomegaly Extremities floor present no clubbing cyanosis or edema Discharge Data Studies Completed and Pending Completed Studies During Hospitalization Category Date Time Status XR chest 1V portable [id number] Stat Exams 06/27/25 20:41 Completed Pending at discharge Category Date Time Status PAROLE OR PROBATION OFFICER request for service Routine Exams 06/28/25 11:37 Taken Radiology Impressions Chest X-Ray 06/27/25 20:41 IMPRESSION: No acute findings. Laboratory Results WBC 9.06 10^3/uL (3.29-11.43) 06/29/25 04:57 RBC 3.52 10^6/uL (3.85-5.65) L 06/29/25 04:57 Hgb 11.20 g/dL (11.27-16.99) L 06/29/25 04:57 Hct 34.2 % (36-47) L 06/29/25 04:57 MCV 97.2 fl (85-98) 06/29/25 04:57 MCH 31.8 pg (27-33) 06/29/25 04:57 MCHC 32.7 g/dL (30-55) 06/29/25 04:57 RDW 11.9 % (12.1-15.1) L 06/29/25 04:57 Plt Count 196 10^3/cmm (157-399) 06/29/25 04:57 MPV 10.7 fL (7.4-10.4) H 06/29/25 04:57 Neut % (Auto) 68.5 % 06/29/25 04:57 Lymph % (Auto) 21.4 % 06/29/25 04:57 [place] % (Auto) 8.2 % 06/29/25 04:57 Eos % (Auto) 0.9 % 06/29/25 04:57 Baso % (Auto) 0.7 % 06/29/25 04:57 Neut # (Auto) 6.21 10^3/uL (1.8-7.7) 06/29/25 04:57 Lymph # (Auto) 1.9 10^3/uL (0.8-4.8) 06/29/25 04:57 [place] # (Auto) 0.7 10^3/uL (0.2-0.9) 06/29/25 04:57 Eos # (Auto) 0.1 10^3/uL (0.0-0.8) 06/29/25 04:57 Baso # (Auto) 0.1 10^3/uL (0.0-0.1) 06/29/25 04:57 Nucleated RBC % (auto) 0 % 06/29/25 04:57 Nucleated RBCs # 0.0 /100WBC 06/29/25 04:57 Sodium 141 mmol/L (136-145) 06/29/25 04:57 Potassium 3.8 mmol/L (3.5-5.1) 06/29/25 04:57 Chloride 106 mmol/L (98-107) 06/29/25 04:57 Carbon Dioxide 24 mmol/L (22-29) 06/29/25 04:57 Anion Gap 14.8 (5-19) 06/29/25 04:57 BUN 8 mg/dL (6-20) 06/29/25 04:57 Creatinine 0.5 mg/dL (0.5-0.9) 06/29/25 04:57 GFR Calculation 129.1 mL/min (90-130) 06/29/25 04:57 Glucose 94 mg/dL (65-115) 06/29/25 04:57 Calculated Osmolality 290 mOsm/kg (285-295) 06/29/25 04:57 Calcium 8.6 mg/dL (8.5-10.5) 06/29/25 04:57 Phosphorus 3.7 mg/dL (2.5-4.5) 06/29/25 04:57 Magnesium 2.1 mg/dL (1.7-2.3) 06/29/25 04:57 Total Bilirubin 0.2 mg/dL (0.15-1.2) 06/29/25 04:57 AST 22 U/L (0-32) 06/29/25 04:57 ALT 15 U/L (0-33) 06/29/25 04:57 Alkaline Phosphatase 96 U/L (35-105) 06/29/25 04:57 Troponin T Baseline 9 ng/L (0-10) 06/27/25 21:00 Troponin T 120 Minute 8.93 ng/L (0-10) 06/27/25 22:57 Delta Troponin T -0.07 ABS# (0-10) L 06/27/25 22:57 Troponin T Hi Sens 6Hr 8.42 ng/L (0-10) 06/28/25 02:35 Troponin T Hi Sens 6Hr Delta -0.58 ng/L (0-12) L 06/28/25 02:35 Total Protein 6.3 g/dL (6.6-8.7) L 06/29/25 04:57 Albumin 3.8 g/dL (3.5-5.2) 06/29/25 04:57 Globulin 2.5 g/dL (1.3-4.6) 06/29/25 04:57 Lipase 42 U/L (13-60) 06/27/25 21:00 Vitals Last Vital Signs Temp 97.6 F 06/29/25 07:32 Pulse 72 06/29/25 07:32 Resp 19 H 06/29/25 07:32 BP 122/75 06/29/25 08:32 Pulse Ox 96 06/29/25 07:32 O2 Del Method Room Air 06/29/25 07:32 Discharge Plan Discharge Patient Disposition: Home Condition: Stable Prescriptions: Continued albuterol sulfate [Ventolin HFA] 90 mcg/actuation HFA aerosol inhaler 2 puff inhalation QID PRN (Reason: shortness of breath or wheezing) Qty: 8.5 5RF black seed 4.5 gram/5 mL Oil 450 g PO DAILY aspirin 81 mg capsule 81 mg PO DAILY Qty: 30 0RF atorvastatin 40 mg Tablet 40 mg PO BEDTIME Qty: 30 0RF clopidogrel 75 mg Tablet 75 mg PO DAILY Qty: 30 0RF metoprolol succinate 25 mg capsule,sprinkle,ER 24hr 25 mg PO DAILY Qty: 30 0RF losartan 25 mg tablet 25 mg PO DAILY Qty: 30 0RF nitroglycerin 0.4 mg tablet, sublingual 0.4 mg sublingual Q5M PRN (Reason: chest pain) Qty: 10 0RF Rx Instructions: do not exceed 3 doses per episode Discontinued amlodipine 5 mg tablet 5 mg PO DAILY Qty: 30 0RF Associate Professor Of Literature OK for DC: Hospitalist Referrals: Jahaira Negron MD [Physician, Cardiology] - 07/06/25 11:15 am Evy Morales MD [Primary Care Provider, Family Practice] - 07/26/25 2:00 pm Discharge Diet: Cardiac Discharge Activity: Limit activity as instructed Patient Instructions: Coronary Angioplasty (DC), Opioid Safety, Pain Management, Patient Portal & Sparkle Instructions Discharge Attestations Time Spent in Discharge Care*: less than 30 min Quality Metrics Clinical Quality Measures [ No reported AMI, CVA or VTE this stay] Coding Level of Care Code Acute Code for [facility] Fwd Diagnoses Hx of placement of stent in anterior descending branch of left coronary artery Z95.5 Coronary artery disease of [place] artery of [place] heart with stable angina pectoris I25.118 [place] vs. transplanted heart: [place] heart Associated angina: with stable angina Left ventricular dysfunction I51.9
== END 2025-06-29 10:27 | disposition home or self-care (01) ==
LOC: ER 23:48 → CSU 06-28 00:06
PROVIDERS: Emergency Medicine; Internal Medicine Cardiovascular Disease; Admitting Provider Internal Medicine; Emergency Provider Physician Assistant; PCP Family Medicine; Visit Provider Internal Medicine
DX: I25.118 Atherosclerotic heart disease of native coronary artery with other forms of angina pectoris (principal); I51.9 Heart disease, unspecified; E78.5 Hyperlipidemia, unspecified; Z95.5 Presence of coronary angioplasty implant and graft; Z79.82 Long term (current) use of aspirin; J44.9 Chronic obstructive pulmonary disease, unspecified; Z87.820 Personal history of traumatic brain injury; Z85.41 Personal history of malignant neoplasm of cervix uteri; Z87.891 Personal history of nicotine dependence; Z82.49 Family history of ischemic heart disease and other diseases of the circulatory system
CPT/HCPCS: 36415; 71045; 80053; 83690; 83735; 84100; 84484; 85025; 85347; 93005; 93454; 96365; 96366; 96372; 99152; 99153; 99285; C1725; C1769; C1874; C1887; C1894; C9600; G0378; J1644; J2250; J2270; J2405; J3010; J3490; J7030; J9999; Q9967

== ENCOUNTER 2025-07-04 13:57 | Outpatient (CLI) | payer OTHER, SELFPAY ==
--- NOTE | 2025-07-04 14:30 | USCV_ITS ---
Bisi Gentile Age: 55 Gender: F : 1970 Exam Date: 07/04/2025 14:23 Ordering Phys: Evy Morales MD Technologist: SURINDER Exam Location: [facility] Indication: Atherosclerosis Risk Factors: Previous Vascular Surgery: Right Brachial BP: / Left Brachial BP: / Right Left Velocity (cm/s) Spectral Plaque Velocity (cm/s) Spectral Plaque Syst/Diast Broadening Syst/Diast Broadening 91.50/ 28.00 Prox CCA 91.10 / 24.70 79.80/ 25.40 Mid CCA 91.80 / 24.40 69.40/ 29.30 Distal CCA 64.10 / 24.10 73.30/ 27.70 Prox ICA 65.80 / 25.30 83.40/ 33.30 Mid ICA 77.80 / 35.80 72.60/ 29.70 Distal ICA 70.60 / 29.10 115.40 ECA 117.90 1.10 ICA/CCA 1.00 Antegrade Vertebral Antegrade 37.10/ 10.40 cm/s 37.10/ 16.70 cm/s Tri Subclavian Tri 98.30 127.3 0 FINDINGS Comparison: none available. No significant elevation of systolic or diastolic velocities. Waveforms are normal. Minimal foci of plaque scattered bilaterally. CONCLUSIONS Bilateral ICA stenosis less than 50%. Minimal carotid atherosclerosis. Dr. Lisa Cervantes DO (Electronically Signed) Final Date: 04 July 2025 15:27 S
== END 2025-07-04 13:58 | disposition home or self-care (01) ==
LOC: RAD 13:59
PROVIDERS: PCP Family Medicine; Visit Provider Family Medicine
DX: I65.23 Occlusion and stenosis of bilateral carotid arteries (principal)
CPT/HCPCS: 93880

== ENCOUNTER → 2025-07-06 12:42 | Outpatient (BNVA) | payer OTHER, SELFPAY | PROVIDERS: PCP Family Medicine; Visit Provider Internal Medicine Cardiovascular Disease | DX: E78.00 Pure hypercholesterolemia, unspecified (principal); R07.89 Other chest pain | CPT/HCPCS: 36415; 80048 ==

== ENCOUNTER 2025-08-03 14:09 | Inpatient (IN) | payer OTHER, SELFPAY ==
[2025-08-03] VITALS (13 sets, daily range): BP systolic 102–184; BP diastolic 59–89; PULSE 53–87; RESP 16–18; TEMP 36.6–36.7; O2SAT 95–100; BMI 25.8
--- OUTSIDE RECORDS SUMMARY | 2025-08-03 14:14 | XMS_ITS | Encounter Summary ---
Author Organization [facility] Address [address] [place] [address] Care Team Providers Care Vp Of Technology Name Role Phone Ekaterina Ryan Primary Care Provider Encounter Details Date Type Department Care Team (Latest Contact Info) Description 05/29/2005 Outpatient Historical [facility] [address] [place] [address] Terry Bhakta MD [address] [place] [phone] ABDOMINAL PAIN UNSPEC SITE (Primary Dx) Social History Tobacco Use Types Packs/Day Years Used Date Smoking Tobacco: Never Assessed Comments Unknown Sex and Gender Information Value Date Recorded Sex Assigned at Not on file 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
--- OUTSIDE RECORDS SUMMARY | 2025-08-03 14:14 | XMS_ITS | Encounter Summary ---
Author Organization [facility] Address [address] [place] [address] Care Team Providers Care Motion Picture Projectionist Apprentice Name Role Phone Ekaterina Ryan DO Primary Care Provider Encounter Details Date Type Department Care Team (Late st Contact Info) Description 12/12/2003 Outpatient Historical [facility] Social History Tobacco Use Types Packs/Day Years Used Date Smoking Tobacco: Never Assessed Comments Unknown Sex and Gender Information Value Date Recorded Sex Assigned at Not on file Legal Sex Female 5:00 AM SDET Gender Identity Not on file Sexual Orientation Not on file documented as of this encounter Plan of Treatment Not on file documented as of this encounter Visit Diagnoses Not on filedocumented in this encounter Care Teams Motion Picture Projectionist Apprentice Relationship Specialty Start Date End Date Ekaterina Ryan DO [address] [place] [address] PCP - General Family Practice 09/30/10 documented as of this encounter
--- OUTSIDE RECORDS SUMMARY | 2025-08-03 14:14 | XMS_ITS | Encounter Summary ---
Author Organization [facility] Address [address] [place] [address] Care Team Providers Care Field Captain Name Role Phone Ekaterina Ryan DO Primary Care Provider Encounter Details Date Type Department Care Team (Latest Contact Info) Description 12/28/2006 Outpatient Historical [facility] Family Medicine- [place] [address] [place] [address] Simone Cruz MD NO ADDRESS ON FILE Headache (Primary Dx) Social History Tobacco Use Types Packs/Day Years Used Date Smoking Tobacco: Never Assessed Comments Unknown Sex and Gender Information Value Date Recorded Sex Assigned at Not on file 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
--- OUTSIDE RECORDS SUMMARY | 2025-08-03 14:14 | XMS_ITS | Encounter Summary ---
Author Organization [facility] Address [address] [place] [address] Care Team Providers Care Cfd Engineer Name Role Phone Ekaterina Ryan DO Primary Care Provider Encounter Details Date Type Department Care Team (Latest Contact Info) Description 01/08/2004 Outpatient Historical [facility] Medicine- [place] [address] [place] [address] Terry Bhakta MD [address] [place] [phone] PYELONEPHRITIS NOS (Primary Dx) Social History Tobacco Use Types Packs/Day Years Used Date Smoking Tobacco: Never Assessed Comments Unknown Sex and Gender Information Value Date Recorded Sex Assigned at Not on file Legal Sex Female 5:00 AM SPORTS AGENT Gender Identity Not on file Sexual Orientation Not on file documented as of this encounter Plan of Treatment Not on file documented as of this encounter Visit Diagnoses Diagnosis Pyelonephritis, unspecified- Primary documented in this encounter Care Teams Cfd Engineer Relationship Specialty Start Date End Date Eakterina Ryan DO [address] [facility] [place] [address] PCP - General Family Practice 09/30/10 documented as of this encounter
--- OUTSIDE RECORDS SUMMARY | 2025-08-03 14:14 | XMS_ITS | Encounter Summary ---
Author Organization [facility] Address [address] [place] [address] Care Team Providers Care Hardener Helper Name Role Phone Ekaterina Ryan DO Primary Care Provider [phone] Encounter Details Date Type Department Care Team (Latest Contact Info) Description 11/27/2003 Outpatient Historical [facility] Medicine- [place] [address] [place] [address] Terry Bhakta MD [address] [place] [phone] ABDOMINAL PAIN UNSPEC SITE (Primary Dx) Social History Tobacco Use Types Packs/Day Years Used Date Smoking Tobacco: Never Assessed Comments Unknown Sex and Gender Information Value Date Recorded Sex Assigned at Not on file 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
--- OUTSIDE RECORDS SUMMARY | 2025-08-03 14:14 | XMS_ITS | Encounter Summary ---
Author Organization [facility] Address [address] [place] [address] Care Team Providers Care Aerospace Manager Name Role Phone Ekaterina Ryan DO Primary Care Provider Encounter Details Date Type Department Care Team (Latest Contact Info) Description 02/14/2004 Outpatient Historical [facility] Medicine- [place] [address] [place] [address] Terry Bhakta MD [address] [place] [phone] OTITIS MEDIA NOS (Primary Dx) Social History Tobacco Use Types Packs/Day Years Used Date Smoking Tobacco: Never Assessed Comments Unknown Sex and Gender Information Value Date Recorded Sex Assigned at Not on file Legal Sex Female 5:00 AM DIGITAL INTERN Gender Identity Not on file Sexual Orientation Not on file documented as of this encounter Plan of Treatment Not on file documented as of this encounter Visit Diagnoses Diagnosis Unspecified otitis media- Primary documented in this encounter Care Teams Aerospace Manager Relationship Specialty Start Date End Date Ekaterina Ryan DO [address] [place] [address] PCP - General Family Practice 09/30/10 documented as of this encounter
--- OUTSIDE RECORDS SUMMARY | 2025-08-03 14:14 | XMS_ITS | Encounter Summary ---
Author Organization [facility] Address [address] [place] [address] Care Team Providers Care Manager Molecular Name Role Phone Ekaterina Ryan DO Primary Care Provider Encounter Details Date Type Department Care Team (Late st Contact Info) Description 10/24/2007 Outpatient Historical [facility] Family Medicine- [place] [address] [place] [address] Kyle Farmer MD [address] [place] [address] Social History Tobacco Use Types Packs/Day Years Used Date Smoking Tobacco: Never Assessed Comments Unknown Sex and Gender Information Value Date Recorded Sex Assigned at Not on file 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
--- OUTSIDE RECORDS SUMMARY | 2025-08-03 14:14 | XMS_ITS | Encounter Summary ---
Author Organization [facility] Address [address] [place] [address] Care Team Providers Care Hoist Mechanic Name Role Phone Ekaterina Ryan DO Primary Care Provider [phone] Encounter Details Date Type Department Care Team (Latest Contact Info) Description 03/08/2006 Outpatient Historical [facility] Hilary Dewey MD [address] [place] [phone] Lump or Mass in Breast (Primary Dx) Social History Tobacco Use Types Packs/Day Years Used Date Smoking Tobacco: Never Assessed Comments Unknown Sex and Gender Information Value Date Recorded Sex Assigned at Not on file Legal Sex Female 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
--- OUTSIDE RECORDS SUMMARY | 2025-08-03 14:14 | XMS_ITS | Encounter Summary ---
Author Organization [facility] Address [address] [place] [address] Care Team Providers Care Radiation Therapy Technician Name Role Phone Ekaterina Ryan DO Primary Care Provider Encounter Details Date Type Department Care Team (Latest Contact Info) Description 12/12/2003 Outpatient Historical [facility] Kwaku Mosley MD [address] [place] [address] DIARRHEA NOS (Primary Dx) Social History Tobacco Use Types Packs/Day Years Used Date Smoking Tobacco: Never Assessed Comments Unknown Sex and Gender Information Value Date Recorded Sex Assigned at Not on file Legal Sex Female 5:00 AM SULFURIC ACID PLANT SUPERVISOR Gender Identity Not on file Sexual Orientation Not on file documented as of this encounter Plan of Treatment Not on file documented as of this encounter Visit Diagnoses Diagnosis Diarrhea- Primary documented in this encounter Care Teams Radiation Therapy Technician Relationship Specialty Start Date End Date Ekaterina Ryan DO [address] [place] [address] PCP - General Family Practice 09/30/10 documented as of this encounter
--- OUTSIDE RECORDS SUMMARY | 2025-08-03 14:14 | XMS_ITS | Encounter Summary ---
Author Organization [facility] Address [address] [place] [address] Care Team Providers Care Woodwork Teacher Name Role Phone Ekaterina Ryan DO Primary Care Provider Encounter Details Date Type Department Care Team (Latest Contact Info) Description 04/11/2007 Outpatient Historical [facility] [address] [place] [phone] Carlos Paige MD NO ADDRESS ON FILE Cervicalgia (Primary Dx); Degeneration of Cervical Intervertebral Disc; Lumbago; Pain in Joint, Shoulder Region Social History Tobacco Use Types Packs/Day Years Used Date Smoking Tobacco: Never Assessed Comments Unknown Sex and Gender Information Value Date Recorded Sex Assigned at Not on file Legal Sex Female 5:00 AM ANIMAL DAYCARE PROVIDER Gender Identity Not on file Sexual Orientation Not on file documented as of this encounter Plan of Treatment Not on file documented as of this encounter Visit Diagnoses Diagnosis Cervicalgia- Primary Degeneration of cervical intervertebral disc Lumbago Pain in joint, shoulder region documented in this encounter Care Teams Woodwork Teacher Relationship Specialty Start Date End Date Ekaterina Ryan DO [address] [place] [address] PCP - General Family Practice 09/30/10 documented as of this encounter
--- OUTSIDE RECORDS SUMMARY | 2025-08-03 14:14 | XMS_ITS | Encounter Summary ---
Author Organization [facility] Address [address] [place] [address] Care Team Providers Care Traffic Sign Supervisor Name Role Phone Ekaterina Ryan DO Primary Care Provider Encounter Details Date Type Department Care Team (Latest Contact Info) Description 03/02/2006 Outpatient Historical [facility] Gen Spec Surg [place] 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
--- OUTSIDE RECORDS SUMMARY | 2025-08-03 14:14 | XMS_ITS | Encounter Summary ---
Author Organization [facility] Address [address] [place] [address] Care Team Providers Care Endband Cutter Hand Name Role Phone Ekaterina Ryan DO Primary Care Provider Encounter Details Date Type Department Care Team (Latest Contact Info) Description 06/09/2005 Outpatient Historical [facility] General Surgery [address] [address] [address] [place] [address] Terry Bentley MD [address] [facility], [address] [place], [place] [address] SURGERY FOLLOWUP NOS (Primary Dx) Social History Tobacco Use Types Packs/Day Years Used Date Smoking Tobacco: Never Assessed Comments Unknown Sex and Gender Information Value Date Recorded Sex Assigned at Not on file Legal Sex Female 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
--- OUTSIDE RECORDS SUMMARY | 2025-08-03 14:14 | XMS_ITS | Encounter Summary ---
Author Organization [facility] Address [address] [place] [address] Care Team Providers Care Hand Violin Maker Name Role Phone Ekaterina Ryan DO Primary Care Provider Encounter Details Date Type Department Care Team (Latest Contact Info) Description 06/16/2006 Outpatient Historical [facility] Medicine- [place] [address] [place] [address] Simone Cruz MD NO ADDRESS ON FILE Other Symptoms Involving Abdomen and Pelvis (Primary Dx); Abdominal Pain, Unspecified Site Social History Tobacco Use Types Packs/Day Years Used Date Smoking Tobacco: Never Assessed Comments Unknown Sex and Gender Information Value Date Recorded Sex Assigned at Not on file Legal Sex Female 5:00 AM MUSTANGER Gender Identity Not on file Sexual Orientation Not on file documented as of this encounter Plan of Treatment Not on file documented as of this encounter Visit Diagnoses Diagnosis Other symptoms involving abdomen and pelvis(789.9)- Primary Other symptoms involving abdomen and pelvis Abdominal pain, unspecified site documented in this encounter Care Teams Hand Violin Maker Relationship Specialty Start Date End Date Ekaterina Ryan DO [address] [place] [facility] [place] [address] PCP - General Family Practice 09/30/10 documented as of this encounter
--- OUTSIDE RECORDS SUMMARY | 2025-08-03 14:14 | XMS_ITS | Encounter Summary ---
Author Organization [facility] Address [address] [place] [address] Care Team Providers Care Charge Entry Clerk Name Role Phone Ekaterina Ryan DO Primary Care Provider Encounter Details Date Type Department Care Team (Latest Contact Info) Description 03/08/2006 Outpatient Historical [facility] [address] [facility] [address] [place] [address] Topher Roy MD NO ADDRESS ON FILE Other Sign and Symptom in Breast (Primary Dx) Social History Tobacco Use Types Packs/Day Years Used Date Smoking Tobacco: Never Assessed Comments Unknown Sex and Gender Information Value Date Recorded Sex Assigned at Not on file 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
--- OUTSIDE RECORDS SUMMARY | 2025-08-03 14:14 | XMS_ITS | Encounter Summary ---
Author Organization [facility] Address [address] [place] [address] Care Team Providers Care Medical Technologist Microbiology Name Role Phone Ekaterina Ryan DO Primary Care Provider Encounter Details Date Type Department Care Team (Latest Contact Info) Description 06/03/2005 Outpatient Historical [facility] General Surgery [address] [address] [place] [address] Terry Bentley MD [address] [facility], [address] [place], [place] [address] Umbilical hernia (Primary Dx) Social History Tobacco Use Types Packs/Day Years Used Date Smoking Tobacco: Never Assessed Comments Unknown Sex and Gender Information Value Date Recorded Sex Assigned at Not on file 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
--- OUTSIDE RECORDS SUMMARY | 2025-08-03 14:14 | XMS_ITS | Encounter Summary ---
Author Organization [employer] [facility] Address [address] [place] [address] Care Team Providers Care Home Comfort Advisor Name Role Phone Ekaterina Ryan DO Primary Care Provider [phone] Encounter Details Date Type Department Care Team (Latest Contact Info) Description 12/07/2003 Outpatient Historical [facility] Kwaku Mosley MD [address] [place] [address] DIARRHEA NOS (Primary Dx); TOBACCO USE DISORDER Social History Tobacco Use Types Packs/Day Years Used Date Smoking Tobacco: Never Assessed Comments Unknown Sex and Gender Information Value Date Recorded Sex Assigned at Not on file Legal Sex Female 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
--- OUTSIDE RECORDS SUMMARY | 2025-08-03 14:14 | XMS_ITS | Encounter Summary ---
Author Organization [facility] Address [address] [place] [address] Care Team Providers Care Folder Tier Name Role Phone Ekaterina Ryan DO Primary Care Provider Encounter Details Date Type Department Care Team (Latest Contact Info) Description 07/23/2006 Outpatient Historical [facility] Family Medicine- [place] [address] [place] [address] Simone Cruz MD NO ADDRESS ON FILE Influenza with Other Respiratory Manifestations (Primary Dx) Social History Tobacco Use Types Packs/Day Years Used Date Smoking Tobacco: Never Assessed Comments Unknown Sex and Gender Information Value Date Recorded Sex Assigned at Not on file Legal Sex Female 5:00 AM TOOLROOM CHECKER Gender Identity Not on file Sexual Orientation Not on file documented as of this encounter Plan of Treatment Not on file documented as of this encounter Visit Diagnoses Diagnosis Influenza with other respiratory manifestations- Primary documented in this encounter Care Teams Folder Tier Relationship Specialty Start Date End Date Ekaterina Ryan DO [address] [facility] [place] [address] PCP - General Family Practice 09/30/10 documented as of this encounter
--- OUTSIDE RECORDS SUMMARY | 2025-08-03 14:14 | XMS_ITS | Encounter Summary ---
Author Organization [facility] Address [address] [place] [address] Care Team Providers Care Building Official Name Role Phone Ekaterina Ryan DO Primary Care Provider [phone] Encounter Details Date Type Department Care Team (Latest Contact Info) Description 11/27/2003 Outpatient Historical [facility] Medicine- [place] [address] [place] [address] Terry Bhakta MD [address] [place] [phone] ABDOMINAL PAIN OTHER SPEC SITE (Primary Dx) Social History Tobacco Use Types Packs/Day Years Used Date Smoking Tobacco: Never Assessed Comments Unknown Sex and Gender Information Value Date Recorded Sex Assigned at Not on file Legal Sex Female 5:00 AM TONGUE BINDER Gender Identity Not on file Sexual Orientation Not on file documented as of this encounter Plan of Treatment Not on file documented as of this encounter Visit Diagnoses Diagnosis Abdominal pain, other specified site- Primary documented in this encounter Care Teams Building Official Relationship Specialty Start Date End Date Ekaterina Ryan DO [address] [facility] [place] [address] PCP - General Family Practice 09/30/10 documented as of this encounter
--- OUTSIDE RECORDS SUMMARY | 2025-08-03 14:14 | XMS_ITS | Encounter Summary ---
Author Organization [facility] Address [address] [place] [address] Care Team Providers Care Stage Director Name Role Phone Ekaterina Ryan DO Primary Care Provider [phone] Encounter Details Date Type Department Care Team (Latest Contact Info) Description 05/29/2005 Outpatient Historical [facility] Medicine- [place] [address] [place] [address] Terry Bhakta MD [address] [place] [address] ABDOMINAL PAIN UNSPEC SITE (Primary Dx) Social History Tobacco Use Types Packs/Day Years Used Date Smoking Tobacco: Never Assessed Comments Unknown Sex and Gender Information Value Date Recorded Sex Assigned at Not on file Legal Sex Female 5:00 AM CAFETERIA DIRECTOR Gender Identity Not on file Sexual Orientation Not on file documented as of this encounter Plan of Treatment Not on file documented as of this encounter Visit Diagnoses Diagnosis Abdominal pain, unspecified site- Primary documented in this encounter Care Teams Stage Director Relationship Specialty Start Date End Date Ekaterina Ryan DO [address] [place] [facility] [place] [address] PCP - General Family Practice 09/30/10 documented as of this encounter
--- OUTSIDE RECORDS SUMMARY | 2025-08-03 14:14 | XMS_ITS | Encounter Summary ---
Author Organization [facility] Address [address] [place] [address] Care Team Providers Care Foster Care Case Manager Name Role Phone Ekaterina Ryan DO Primary Care Provider Encounter Details Date Type Department Care Team (Late st Contact Info) Description 11/03/2007 Outpatient Historical [facility] Family Medicine- [place] [address] [place] [address] Jayson Espinoza, SETTER OFF [address] [place] [address] Social History Tobacco Use Types Packs/Day Years Used Date Smoking Tobacco: Never Assessed Comments Unknown Sex and Gender Information Value Date Recorded Sex Assigned at Not on file Legal Sex Female 5:00 AM SURGICAL CORSETIER Gender Identity Not on file Sexual Orientation Not on file documented as of this encounter Plan of Treatment Not on file documented as of this encounter Visit Diagnoses Not on filedocumented in this encounter Care Teams Foster Care Case Manager Relationship Specialty Start Date End Date Ekaterina Ryan DO [address] [place] [address] PCP - General Family Practice 09/30/10 documented as of this encounter
--- OUTSIDE RECORDS SUMMARY | 2025-08-03 14:14 | XMS_ITS | Encounter Summary ---
Author Organization [facility] Address [address] [place] [address] Care Team Providers Care Interlibrary Loan Services Librarian Name Role Phone Ekaterina Ryan DO Primary Care Provider Encounter Details Date Type Department Care Team (Latest Contact Info) Description 06/02/2005 Outpatient Historical [facility] General Surgery [address] [address] [address] [place] [address] Terry Bentley MD [address] [facility], [address] [place], [place] [address] Umbilical hernia (Primary Dx) Social History Tobacco Use Types Packs/Day Years Used Date Smoking Tobacco: Never Assessed Comments Unknown Sex and Gender Information Value Date Recorded Sex Assigned at Not on file 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
--- OUTSIDE RECORDS SUMMARY | 2025-08-03 14:14 | XMS_ITS | Encounter Summary ---
Author Organization [facility] Address [address] [place] [address] Care Team Providers Care Jig Maker Name Role Phone Ekaterina Ryan DO Primary Care Provider Encounter Details Date Type Department Care Team (Latest Contact Info) Description 01/08/2004 Outpatient Historical [facility] Medicine- [place] [address] [place] [address] Terry Bhakta MD [address] [place] [address] PYELONEPHRITIS NOS (Primary Dx) Social History Tobacco Use Types Packs/Day Years Used Date Smoking Tobacco: Never Assessed Comments Unknown Sex and Gender Information Value Date Recorded Sex Assigned at Not on file Legal Sex Female 5:00 AM HIGH SCHOOL BAND DIRECTOR Gender Identity Not on file Sexual Orientation Not on file documented as of this encounter Plan of Treatment Not on file documented as of this encounter Visit Diagnoses Diagnosis Pyelonephritis, unspecified- Primary documented in this encounter Care Teams Jig Maker Relationship Specialty Start Date End Date Ekaterina Ryan DO [address] [facility] [place] [address] PCP - General Family Practice 09/30/10 documented as of this encounter
--- OUTSIDE RECORDS SUMMARY | 2025-08-03 14:15 | XMS_ITS | Encounter Summary ---
Author Organization [facility] Address [address] [place] [address] Care Team Providers Care Transport Aircrewman Name Role Phone Ekaterina Ryan DO Primary Care Provider Encounter Details Date Type Department Care Team (Latest Contact Info) Description 12/02/2005 Outpatient Historical [facility] General Surgery [address] [address] [address] [place] [address] Terry Bentley MD [address] [facility], [address] [place], [place] [address] SURGERY FOLLOWUP NOS (Primary Dx) Social History Tobacco Use Types Packs/Day Years Used Date Smoking Tobacco: Never Assessed Comments Unknown Sex and Gender Information Value Date Recorded Sex Assigned at Not on file Legal Sex Female 5: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
--- OUTSIDE RECORDS SUMMARY | 2025-08-03 14:15 | XMS_ITS | Encounter Summary ---
Author Organization [facility] Address [address] [place] [address] Care Team Providers Care Political Organizer Name Role Phone Ekaterina Ryan DO Primary Care Provider Encounter Details Date Type Department Care Team (Late st Contact Info) Description 02/19/2006 Outpatient Historical [facility] Family Medicine- [place] [address] [place] [address] Social History Tobacco Use Types Packs/Day Years Used Date Smoking Tobacco: Never Assessed Comments Unknown Sex and Gender Information Value Date Recorded Sex Assigned at Not on file Legal Sex Female 5:00 AM CARDIAC CATHETERIZATION TECHNOLOGIST Gender Identity Not on file Sexual Orientation Not on file documented as of this encounter Plan of Treatment Not on file documented as of this encounter Visit Diagnoses Not on filedocumented in this encounter Care Teams Political Organizer Relationship Specialty Start Date End Date Ekaterina Ryan DO [address] [place] [address] PCP - General Family Practice 09/30/10 documented as of this encounter
--- OUTSIDE RECORDS SUMMARY | 2025-08-03 14:15 | XMS_ITS | Encounter Summary ---
Author Organization [facility] Address [address] [place] [address] Care Team Providers Care Oil Driller Name Role Phone Ekaterina Ryan Primary Care Provider Encounter Details Date Type Department Care Team (Latest Contact Info) Description 02/03/2006 Outpatient Historical [facility] [address] [place] [address] Lane George, SEO ENGINEER [address] [place] [address] Hepatomegaly (Primary Dx) Social History Tobacco Use Types Packs/Day Years Used Date Smoking Tobacco: Never Assessed Comments Unknown Sex and Gender Information Value Date Recorded Sex Assigned at Not on file Legal Sex Female 5:00 AM AUTOMOBILE PARKER Gender Identity Not on file Sexual Orientation [...] Primary documented in this encounter Care Teams Oil Driller Relationship Specialty Start Date End Date Ekaterina Ryan DO [address] [place] [address] PCP - General Family Practice 09/30/10 documented as of this encounter
--- OUTSIDE RECORDS SUMMARY | 2025-08-03 14:15 | XMS_ITS | Encounter Summary ---
Author Organization [facility] Address [address] [place] [address] Care Team Providers Care Splitting Machine Operator Helper Name Role Phone Ekaterina Ryan DO Primary Care Provider Encounter Details Date Type Department Care Team (Latest Contact Info) Description 11/18/2005 Outpatient Historical [facility] General Surgery [address] [address] [address] [place] [address] Terry Bentley MD [address] [facility], [address] [place], [place] [address] ABDOMINAL PAIN OTHER SPEC SITE (Primary Dx) Social History Tobacco Use Types Packs/Day Years Used Date Smoking Tobacco: Never Assessed Comments Unknown Sex and Gender Information Value Date Recorded Sex Assigned at Not on file Legal Sex Female 5:00 AM BAG MACHINE ADJUSTER Gender Identity Not on file Sexual Orientation Not on file documented as of this encounter Plan of Treatment Not on file documented as of this encounter Visit Diagnoses Diagnosis Abdominal pain, other specified site- Primary documented in this encounter Care Teams Splitting Machine Operator Helper Relationship Specialty Start Date End Date Ekaterina Ryan DO [address] [place] [address] PCP - General Family Practice 09/30/10 documented as of this encounter
--- OUTSIDE RECORDS SUMMARY | 2025-08-03 14:15 | XMS_ITS | Encounter Summary ---
Author Organization [facility] Address [address] [place] [address] Care Team Providers Care International Freight Forwarder Name Role Phone Ekaterina Ryan DO Primary Care Provider Encounter Details Date Type Department Care Team (Latest Contact Info) Description 08/25/2005 Outpatient Historical [facility] Medicine- [place] [address] [place] [address] Terry Bhakta MD [address] [place] [phone] SPASM OF MUSCLE (Primary Dx) Social History Tobacco Use Types Packs/Day Years Used Date Smoking Tobacco: Never Assessed Comments Unknown Sex and Gender Information Value Date Recorded Sex Assigned at Not on file Legal Sex Female 5:00 AM SPACE BUYER Gender Identity Not on file Sexual Orientation Not on file documented as of this encounter Plan of Treatment Not on file documented as of this encounter Visit Diagnoses Diagnosis Spasm of muscle- Primary documented in this encounter Care Teams International Freight Forwarder Relationship Specialty Start Date End Date Ekaterina Ryan DO [address] [place] [address] PCP - General Family Practice 09/30/10 documented as of this encounter
--- OUTSIDE RECORDS SUMMARY | 2025-08-03 14:15 | XMS_ITS | Clinical Summary ---
Author Organization [facility] Address [address] [facility] Attn: Epic Prelude ADT ANITRA CANO [address] Care Team Providers Care Mending Carrier Name Role Phone ConnorEkaterina bertrand Wilber LEMONS Primary Care Provider Allergies Active Allergy Reactions Criticality Noted Date Comments Bee Venom Protein (Honey Bee) Anaphylaxis High 06/01 [place] Anaphylaxis High 06/01/2023 Tetanus Toxoid Swelling High 12/19/2018 Topiramate Anaphylaxis High 12/19/2018 Medications albuterol sulfate HFA 90 mcg/actuation aerosol inhalerIndicatio ns:COPD with exacerbation ([facility]) Take 2 Puffs by inhalation every 4 hours as needed for Shortness of Breath or Wheezing. 8.5 Gram 5 3 Active fluticasone propionate (FLONASE) 50 mcg/spray [place], Suspension nasal inhalerIndicatio ns:Non-recurrent acute serous otitis [...] dysfunction of right eustachian tube Administer 1 [place] in each nostril 2 times daily. 30 [...] on file Legal Sex Female 2:41 AM SURFACE SUPPLY BREATHING APPARATUS Gender Identity Not on file Sexual Orientation Not on file Last Filed Vital Signs Vital Sign Reading Time Taken Comments Blood Pressure 122/66 12/05/2024 10:44 AM SURFACE SUPPLY BREATHING APPARATUS Pulse 88 12/05/2024 10:44 AM SURFACE SUPPLY BREATHING APPARATUS Temperature 36.6 C (97.8 F) 12/05/2024 10:44 AM SURFACE SUPPLY BREATHING APPARATUS Respiratory Rate 17 12/05/2024 10:44 AM SURFACE SUPPLY BREATHING APPARATUS Oxygen Saturation 98% 12/05/2024 10:44 AM SURFACE SUPPLY BREATHING APPARATUS Inhaled Oxygen Concentration - - Weight 68.6 kg (151 lb 3.2 oz) 12/05/2024 10:44 AM SURFACE SUPPLY BREATHING APPARATUS Height 160 cm (5' 3 ) 12/05/2024 10:44 AM SURFACE SUPPLY BREATHING APPARATUS Body Mass Index 26.78 12/05/2024 10:44 AM SURFACE SUPPLY BREATHING APPARATUS Plan of Treatment Health Maintenance Due Date [...] Visit- Commercial 10/18/2024 INFLUENZA VACCINE (#1) 2025 Insurance MED[employer] EXCHANGE [id number] [address] [id number] Care Teams Mending Carrier Relationship Specialty Start Date End Date Ekaterina Ryan DO [address] [place] [address] PCP - General Family Practice 09/30/10
--- OUTSIDE RECORDS SUMMARY | 2025-08-03 14:15 | XMS_ITS | Encounter Summary ---
Author Organization [facility] Address [address] [place] [address] Care Team Providers Care Refrigerating Oiler Name Role Phone Ekaterina Ryan DO Primary Care Provider Encounter Details Date Type Department Care Team (Latest Contact Info) Description 07/07/[address] 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
--- OUTSIDE RECORDS SUMMARY | 2025-08-03 14:15 | XMS_ITS | Encounter Summary ---
Author Organization [facility] Address [address] [place] [address] Care Team Providers Care Telemarketing Manager Name Role Phone Ekaterina Ryan DO Primary Care Provider Encounter Details Date Type Department Care Team (Latest Contact Info) Description 05/04/2006 Outpatient Historical [facility] Medicine- [place] [address] [place] [address] Simone Cruz MD NO ADDRESS [...] reflux documented in this encounter Care Teams Telemarketing Manager Relationship Specialty Start Date End Date Ekaterina Ryan DO [address] [place] [facility] [place] [address] PCP - General Family Practice 09/30/10 documented as of this encounter
--- OUTSIDE RECORDS SUMMARY | 2025-08-03 14:15 | XMS_ITS | Encounter Summary ---
Author Organization [employer] [facility] Address [address] [place] [address] Care Team Providers Care Box Sealing Machine Feeder Name Role Phone Ekaterina Ryan DO Primary Care Provider Encounter Details Date Type Department Care Team (Latest Contact Info) Description 02/09/2006 [facility] [address] [place] [address] Terry Bentley MD [address] 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
--- OUTSIDE RECORDS SUMMARY | 2025-08-03 14:15 | XMS_ITS | Encounter Summary ---
Author Organization [facility] Address [address] [place] [address] Care Team Providers Care Pari Mutuel Clerk Name Role Phone Ekaterina Ryan DO Primary Care Provider Encounter Details Date Type Department Care Team (Latest Contact Info) Description 11/04/2005 Outpatient Historical [facility] General Surgery [address] [address] [address] [place] [address] [place] [address] 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
--- OUTSIDE RECORDS SUMMARY | 2025-08-03 14:15 | XMS_ITS | Encounter Summary ---
Author Organization [facility] Address [address] [place] [address] Care Team Providers Care Senior Web Architect Name Role Phone Ekaterina Ryan DO Primary Care Provider Encounter Details Date Type Department Care Team (Late st Contact Info) Description 11/10/2007 Outpatient Historical [facility] Family Medicine- [place] [address] [place] [address] Jayson Espinoza, DISTRIBUTION ASSOCIATE [address] [place] [address] Social History Tobacco Use Types Packs/Day Years Used Date Smoking Tobacco: Never Assessed Comments Unknown Sex and Gender Information Value Date Recorded Sex Assigned at Not on file 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
--- OUTSIDE RECORDS SUMMARY | 2025-08-03 14:15 | XMS_ITS | Encounter Summary ---
Author Organization [facility] Address [address] [place] [address] Care Team Providers Care Sample Color Maker Name Role Phone Ekaterina Ryan DO Primary Care Provider Encounter Details Date Type Department Care Team (Latest Contact Info) Description 06/24/2005 Outpatient Historical [facility] General Surgery [address] [address] [address] [place] [address] Terry Bentley MD [address] [facility], [address] [place], [place] [address] SURGERY FOLLOWUP NOS (Primary Dx) Social History Tobacco Use Types Packs/Day Years Used Date Smoking Tobacco: Never Assessed Comments Unknown Sex and Gender Information Value Date Recorded Sex Assigned at Not on file 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
--- OUTSIDE RECORDS SUMMARY | 2025-08-03 14:15 | XMS_ITS | Encounter Summary ---
Author Organization [facility] Address [address] [place] [address] Care Team Providers Care Manager Balance Name Role Phone Ekaterina Ryan DO Primary Care Provider [phone] Encounter Details Date Type Department Care Team (Latest Contact Info) Description 05/13/2006 Outpatient Historical [facility] Family Medicine- [place] [address] [place] [address] Simone Cruz MD NO ADDRESS ON FILE Headache (Primary Dx); Esophageal Reflux Social History Tobacco Use Types Packs/Day Years Used Date Smoking Tobacco: Never Assessed Comments Unknown Sex and Gender Information Value Date Recorded Sex Assigned at Not on file 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
--- OUTSIDE RECORDS SUMMARY | 2025-08-03 14:15 | XMS_ITS | Encounter Summary ---
Author Organization [facility] Address [address] [place] [address] Care Team Providers Care Multimedia Specialist Name Role Phone Ekaterina Ryan DO Primary Care Provider [phone] Encounter Details Date Type Department Care Team (Latest Contact Info) Description 05/19/2006 Outpatient Historical [facility] Family Medicine- [place] [address] [place] [address] Simone Cruz MD NO ADDRESS ON FILE Inflam Disease of Breast (Primary Dx); Irregular Menstruation Social History Tobacco Use Types Packs/Day Years Used Date Smoking Tobacco: Never Assessed Comments Unknown Sex and Gender Information Value Date Recorded Sex Assigned at Not on file 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
--- OUTSIDE RECORDS SUMMARY | 2025-08-03 14:15 | XMS_ITS | Clinical Summary ---
Author Organization [facility] Address [address] [facility] [place] [address] Care Team Providers Care Automobile Detailer Name Role Phone ConnorEkaterina bertrand Wilber LEMONS Primary Care Provider [phone] Allergies Active Allergy Reactions Criticality Noted Date Comments Tetanus Toxoid Swelling High 12/19/2018 Topiramate Anaphylaxis High 12/19/2018 Medications albuterol HFA 90 mcg inhalerIndication s:COPD with exacerbation ([facility]) INHALE 2 PUFFS BY MOUTH EVERY 6 HOURS NEEDED FOR SHORTNESS OF BREATH 8.5 Gram 11 1 Active fluconazole (DIFLUCAN) 100 mg tabletIndications :Antibiotic-induc ed yeast infection Take 1 Tablet (100 mg) by mouth daily. 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
--- OUTSIDE RECORDS SUMMARY | 2025-08-03 14:15 | XMS_ITS | Encounter Summary ---
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 Gender Identity Not on file Sexual Orientation Not on file documented as of this encounter Plan of Treatment Not on file documented as of this encounter Procedures Procedure Name Priority Date/Time Associated Diagnosis Comments CT ABDOMEN PELVIS W CONTRAST Routine 11/11/2005 8:45 AM CENTRAL SUPPLY MANAGER documented in this encounter Results * CT ABDOMEN PELVIS W CONTRAST (11/11/2005 8:45 AM CENTRAL SUPPLY MANAGER) Anatomical Region Laterality Modality Abdomen Other 11/11/2005 8:45 AM CENTRAL SUPPLY MANAGER Narrative 11/11/2005 8:[address] SUP[address] MANA[address] ABDOMEN AND PELVIS: 11-11-05 CLINICAL INFORMATION [...] specific assessment if clinically warranted. [facility] D: 11-11-05 0959 Dictated By: Rubin [...] specific assessment if clinically warranted. [facility] D: 11-11-05 0959 Dictated By: Rubin Chowdary M.D. Electronically Signed By: Rubin Chowdary M.D. Date Signed: 11/11/05 us Terry Bentley MD CT ORDERABLES Final Result documented in this encounter Visit Diagnoses Not on filedocumented in this encounter Care Teams Capsule Inspector Relationship Specialty Start Date End Date Ekaterina Ryan DO [address] [place] [address] PCP - General Family Practice 09/30/10 documented as of this encounter
--- OUTSIDE RECORDS SUMMARY | 2025-08-03 14:15 | XMS_ITS | Encounter Summary ---
Author Organization [facility] Address [address] [place] [address] Care Team Providers Care Company Manager Name Role Phone Ekaterina Ryan DO Primary Care Provider Encounter Details Date Type Department Care Team (Latest Contact Info) Description 05/31/2006 Outpatient Historical [facility] Ophthalmology 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
--- OUTSIDE RECORDS SUMMARY | 2025-08-03 14:15 | XMS_ITS | Encounter Summary ---
Author Organization [facility] Address [address] [place] [address] Care Team Providers Care Remedial Teacher Name Role Phone Ekaterina Ryan DO Primary Care Provider Encounter Details Date Type Department Care Team (Latest Contact Info) Description 09/28/2005 Outpatient Historical [facility] Medicine- [place] [address] [place] [address] Terry Bhakta MD [address] [place] [address] FEMALE GENITAL SYMPTOMS NOS (Primary Dx) Social History Tobacco Use Types Packs/Day Years Used Date Smoking Tobacco: Never Assessed Comments Unknown Sex and Gender Information Value Date Recorded Sex Assigned at Not on file 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
--- OUTSIDE RECORDS SUMMARY | 2025-08-03 14:15 | XMS_ITS | Encounter Summary ---
Author Organization [facility] Address [address] [place] [address] Care Team Providers Care Copyman Name Role Phone Ekaterina Ryan DO Primary Care Provider Encounter Details Date Type Department Care Team (Latest Contact Info) Description 02/09/2006 Outpatient Historical [facility] General Surgery [address] [address] [address] [place] [address] Terry Bentley MD [address] [facility], [address] [place], [place] [address] Follow-Up Examination, Following Unspecified Surgery (Primary Dx) Social History Tobacco Use Types Packs/Day Years Used Date Smoking Tobacco: Never Assessed Comments Unknown Sex and Gender Information Value Date Recorded Sex Assigned at Not on file 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
--- OUTSIDE RECORDS SUMMARY | 2025-08-03 14:15 | XMS_ITS | Encounter Summary ---
Author Organization [facility] Address [address] [place] [address] Care Team Providers Care Ad Trafficker Name Role Phone Ekaterina Ryan DO Primary Care Provider Encounter Details Date Type Department Care Team (Latest Contact Info) Description 02/03/2006 Outpatient Historical [facility] Medicine- [place] [address] [place] [address] Lane George, PREDICTIVE MAINTENANCE SPECIALIST [address] [place] [address] Abdominal Pain, Unspecified Site (Primary Dx); Hepatomegaly; Other Malaise and Fatigue Social History Tobacco Use Types Packs/Day Years Used Date Smoking Tobacco: Never Assessed Comments Unknown Sex and Gender Information Value Date Recorded Sex Assigned at Not on file 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
--- NOTE | 2025-08-03 14:17 | ECG_ITS ---
Indexing [employer] Test Date: 2025-08-03 Pat Name: Bisi Gentile Department: Room: Gender: Female Zyglo Technician: : 1970 Requested By: Lisa Merino Order Number: [id number] Higuera MD: King Sparks M.D. Measurements Intervals [place] Rate: 72 P: 54 NM: 179 QRS: 33 QRSD: 88 T: 49 QT: 366 QTc: 401 Interpretive Statements SINUS RHYTHM POSSIBLE LEFT ATRIAL ENLARGEMENT [-0.1mV P-WAVE IN V1/V2] Compared to ECG 06/28/2025 02:32:32 Sinus bradycardia no longer present Electronically Signed On 08-04-2025 11:58:12 CDT by King Sparks M.D. [email or web address]
--- NOTE | 2025-08-03 14:35 | XR_ITS ---
WS: [id number] XR chest 1V portable [id number] REASON FOR EXAM: chest pain FINDINGS: The chest is unchanged compared to 06/27/2025. Normal thoracic aorta. Heart size within normal limits. Coronary artery stents. Calcified granulomatous disease bilaterally. No acute pulmonary parenchymal or pleural disease. Bilateral calcific tendinosis, rotator cuff tendon, of both shoulder joints (capital HADD). XR/XR chest 1V portable [id number] IMPRESSION: No acute chest abnormality.
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
[2025-08-03 14:55] LABS: Hematocrit 38.4 % (36-47); Hemoglobin 13.00 g/dL (11.27-16.99); Mean Corpuscular HGB Conc 33.9 g/dL (30-55); Mean Corpuscular Hemoglobin 31.7 pg (27-33); Mean Corpuscular Volume 93.7 fl (85-98); Nucleated Red Blood Cells % 0 %; Platelet Count 229 10^3/cmm (157-399); Red Blood Count 4.10 10^6/uL (3.85-5.65); White Blood Count 5.49 10^3/uL (3.29-11.43)
[2025-08-03 15:18] LABS: Troponin(5th) Baseline < 6 ng/L (0-10)
[2025-08-03] MEDS: morphine 4 mg/mL SDV 1 mL IVP (15:23)
[2025-08-03] MEDS: ondansetron 2 mg/ML SDV 2 mL 4 MG IVP (15:23)
[2025-08-03 15:25] LABS: Alanine Aminotransferase 41 U/L (0-33); Albumin Level 4.6 g/dL (3.5-5.2); Alkaline Phosphatase 119 U/L (35-105); Aspartate Amino Transferase 34 U/L (0-32); Blood Urea Nitrogen 13 mg/dL (6-20); Calcium 9.5 mg/dL (8.5-10.5); Carbon Dioxide 26 mmol/L (22-29); Chloride 102 mmol/L (98-107); Creatinine Clr Calc Pharmacy 114.8978; Globulin 2.1 g/dL (1.3-4.6); Glucose 100 mg/dL (65-115); NT Pro B Type Natriuretic Pept 54 pg/mL (0-125); Osmolality Calculated 292 mOsm/kg (285-295); Sodium 141 mmol/L (136-145); Total Protein 6.7 g/dL (6.6-8.7)
[2025-08-03 15:30] LABS: Anion Gap 16.8 (5-19); Potassium 3.8 mmol/L (3.5-5.1)
--- NOTE | 2025-08-03 16:35 | ECG_ITS ---
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 Measurements Intervals [place] Rate: 50 P: 40 MD: 180 QRS: 28 QRSD: 92 T: 43 QT: 432 QTc: 395 Interpretive Statements SINUS BRADYCARDIA Compared to ECG 08/03/2025 14:17:37 Sinus rhythm no longer present Electronically Signed On 08-04-2025 12:06:44 CDT by King Sparks M.D. [email or web address]
[2025-08-03 17:10] LABS: Troponin 5 2HR < 6.0 ng/L (0-10); Troponin 5 2HR Delta 0 ABS# (0-10)
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
[2025-08-03 18:46] LABS: Lactic Sepsis W/Reflex 1.1 mmol/L (0.5-2.2)
[2025-08-03 18:54] LABS: Procalcitonin 0.02 ng/mL (0-0.5)
--- NOTE | 2025-08-03 20:35 | ECG_ITS ---
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 Measurements Intervals [place] Rate: 56 P: 28 AR: 169 QRS: 25 QRSD: 102 T: 29 QT: 412 QTc: 399 Interpretive Statements SINUS BRADYCARDIA Compared to ECG 08/03/2025 16:59:42 No significant changes Electronically Signed On 08-04-2025 12:05:41 CDT by King Sparks M.D. [email or web address]
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
[2025-08-03 21:39] LABS: Troponin 5 6HR < 6.0 ng/L (0-10); Troponin 5 6HR Delta 0 ng/L (0-12)
[2025-08-03] MEDS: pantoprazole 40 mg SDV IVP (22:20)
[2025-08-03] MEDS: ATORVASTATIN 20 MG TABLET PO (22:20)
[2025-08-04] VITALS (12 sets, daily range): BP systolic 101–130; BP diastolic 45–70; PULSE 52–86; RESP 16–24; TEMP 36.1–36.8; O2SAT 95–100
[2025-08-04 00:48] LABS: Thyroid Stimulating Hormone 1.05 uIU/mL (0.27-4.20)
[2025-08-04 01:20] LABS: Estmated Average Glucose 108; Hemoglobin A1C 5.4 % (4.0-6.0)
--- NOTE | 2025-08-04 04:49 | PC.NURSE ---
Contacted physiscian belkys patient had 50mg po losartan and 12.5mg po metoprolol succinate due with a blood pressure of 110/59, per physician hold these two medications.
[2025-08-04 05:08] LABS: Hematocrit 37.8 % (36-47); Hemoglobin 12.50 g/dL (11.27-16.99); Mean Corpuscular HGB Conc 33.1 g/dL (30-55); Mean Corpuscular Hemoglobin 32.1 pg (27-33); Mean Corpuscular Volume 96.9 fl (85-98); Nucleated Red Blood Cells % 0 %; Platelet Count 217 10^3/cmm (157-399); Red Blood Count 3.90 10^6/uL (3.85-5.65); White Blood Count 6.52 10^3/uL (3.29-11.43)
[2025-08-04 05:31] LABS: Procalcitonin 0.02 ng/mL (0-0.5)
[2025-08-04 05:32] LABS: Alanine Aminotransferase 36 U/L (0-33); Albumin Level 4.1 g/dL (3.5-5.2); Alkaline Phosphatase 112 U/L (35-105); Anion Gap 15.0 (5-19); Aspartate Amino Transferase 28 U/L (0-32); Blood Urea Nitrogen 20 mg/dL (6-20); Calcium 9.0 mg/dL (8.5-10.5); Carbon Dioxide 23 mmol/L (22-29); Chloride 106 mmol/L (98-107); Creatinine Clr Calc Pharmacy 99.1478; Globulin 2.3 g/dL (1.3-4.6); Glucose 89 mg/dL (65-115); Magnesium 2.1 mg/dL (1.7-2.3); Osmolality Calculated 292 mOsm/kg (285-295); Potassium 4.0 mmol/L (3.5-5.1); Sodium 140 mmol/L (136-145); Total Protein 6.4 g/dL (6.6-8.7)
[2025-08-04 05:36] LABS: Cholesterol 180 mg/dL (0-200); HDL Cholesterol 36 mg/dL (60-100); Triglycerides 254 mg/dL (0-150)
--- NOTE | 2025-08-04 11:10 | P.PN_ITS ---
Subjective 2 Subjective: Still feeling intermittent pain in the left chest area Vitals/I&O/Wt Last Vital Signs Temp 97.2 F L 08/04/25 07:32 Pulse 69 08/04/25 07:48 Resp 16 08/04/25 07:48 BP 121/70 08/04/25 07:32 Pulse Ox 97 08/04/25 07:48 O2 Del Method Room Air 08/04/25 07:48 08/03/25 08/04/25 08/04/25 22:59 06:59 14:59 Intake Total 50 / 50 480 / 530 960 / 960 Balance 50 / 50 480 / 530 960 / 960 Weight last 48 hrs Weight 145 lb 15.136 oz Weight 145 lb 11.609 oz Weight 135 lb Physical Exam 2 Narrative: General: In no acute distress Neck: No jugular venous distention or carotid bruits Heart: Normal S1 and S2 with a regular rate and rhythm, no cardiac murmurs Lungs: Normal respiratory effort with no use of intercostal muscles, clear lungs sounds to auscultation Extremities: No lower extremity edema Neuro: Alert and oriented x 3 Chest not tender Data 08/04/25 04:30 08/04/25 04:30 A&P Assessment and plan 1. Unstable angina: 2. Coronary artery disease: 3. Nicotine dependence, cigarettes, in remission: 4. Ischemic cardiomyopathy: 5. S/P coronary artery stent placement: multivessel stenting recently Plan: lovenox 1 mg/kg bid continue asa, plavix, metoprolol 12.5 mg bid - not increasing dose since HRs at goal in the 60s Increase atorvastatin to 80mg qhs tolerating Imdur without headache today serial trops normal so far EKG and troponin now change imdur to nitro paste 1/2 inch q 6 hours May need LHC instead of Lexiscan Wednesday no signs or symptoms of chf limited echo to reassess LVF pending Will reassess in am PDMP PDMP Reviewed: Not Reviewed Attestations 2 Medical Necessity Statement*: Needs 2 more midnights in hospital due to unstable angina Coding Level of Care Code Acute Code for Chg Fwd Diagnoses Unstable angina I20.0 Coronary artery disease I25.10 Nicotine dependence, cigarettes, in remission F17.211 Ischemic cardiomyopathy I25.5 S/P coronary artery stent placement Z95.5
--- NOTE | 2025-08-04 11:22 | ECG_ITS ---
[facility] Test Date: 2025-08-04 Pat Name: Bisi Gentile Department: Room: 106 Gender: Female School Resource Officer: : 1970 Requested By: Jesse South Order Number: [id number] Higurea MD: King Sparks M.D. Measurements Intervals [place] Rate: 53 P: 40 MT: 165 QRS: 49 QRSD: 92 T: 49 QT: 416 QTc: 393 Interpretive Statements SINUS BRADYCARDIA LOW QRS VOLTAGE IN PRECORDIAL LEADS [QRS DEFLECTION < 1.0 mV IN CHEST LEADS] Compared to ECG 08/03/2025 21:00:39 Low QRS voltage now present Electronically Signed On 08-04-2025 12:05:19 CDT by King Sparks M.D. [email or web address]
[2025-08-04 12:45] LABS: Troponin T (5th) Once < 6 ng/L (0-10)
[2025-08-04] MEDS: nitroglycerin 1 gm/inch oint Pkt 0.5 INCH TOPICAL ×3 (12:46→23:50)
--- NOTE | 2025-08-04 13:26 | P.PN_ITS ---
Subjective 2 Subjective: Patient remains with mild left-sided chest pain. Similar to her previous pain requiring stents on 2 previous occasions within the last few months. Vitals/I&O/Wt Last Vital Signs Temp 97.3 F L 08/04/25 11:52 Pulse 66 08/04/25 12:46 Resp 16 08/04/25 11:52 BP 130/45 08/04/25 12:46 Pulse Ox 100 08/04/25 11:52 O2 Del Method Room Air 08/04/25 11:52 08/03/25 08/04/25 08/04/25 22:59 06:59 14:59 Intake Total 50 / 50 480 / 530 1200 / 1200 Balance 50 / 50 480 / 530 1200 / 1200 Weight last 48 hrs Weight 66.2 kg Weight 66.1 kg Weight 61.235 kg Physical Exam 2 Narrative: Alert and oriented no distress Heart regular normal S1-S2 without murmurs clicks gallops or rubs Lungs somewhat diminished and a few rhonchi that cleared with cough on the right Abdomen soft nontender nondistended positive bowel sounds Extremities no clubbing cyanosis edema Data 08/04/25 04:30 08/04/25 04:30 A&P Assessment and plan 1. Unstable angina: Patient with 2 separate incidents of PCI within the last month. Patient with 1 stent placed 06/20/2025 and then 3 stents placed 06/28/2025. Continue with aspirin, Plavix, statin, metoprolol. Start on Lovenox 1 mg/kg body weight every 12 hourly. Appreciate cardiology consultation. Agree the patient will require C 2. Atherosclerotic heart disease of [place] coronary artery with other forms of angina pectoris: 3. Hx of placement of stent in anterior descending branch of left coronary artery: 4. Hypercholesterolemia: 5. Ischemic cardiomyopathy: Last echocardiogram shows EF of 48% grade 1 diastolic dysfunction with trace MR. Currently patient euvolemic. Limited echocardiogram as above. 6. Gastroesophageal reflux disease without esophagitis: IV Protonix daily. Plan: Hypertension: Goal blood pressure less than 130/85 mmHg. Blood pressure is elevated on admission. Continue with home dose of Imdur, metoprolol. Increase dose of losartan to 50 mg daily. Uptitrate as for goal blood pressure. Full code Cardiac diet, n.p.o. after midnight Full dose Lovenox will be sufficient for DVT prophylaxis Protonix for PUD prophylaxis PDMP PDMP Reviewed: Not Reviewed Attestations 2 Medical Necessity Statement*: Needs 2 more midnights in hospital due to unstable angina Coding Level of Care Code Acute Code for Chg Fwd Diagnoses Unstable angina I20.0 Atherosclerotic heart disease of [place] coronary artery with other forms of angina pectoris I25.118 Hx of placement of stent in anterior descending branch of left coronary artery Z95.5 Hypercholesterolemia E78.00 Ischemic cardiomyopathy I25.5 Gastroesophageal reflux disease without esophagitis K21.9 Esophagitis presence: without esophagitis
--- OUTSIDE RECORDS SUMMARY | 2025-08-04 16:58 | XMS_ITS | Encounter Summary ---
Author Organization [facility] Address [address] [place] [address] Care Team Providers Care Experience Planning Strategist Name Role Phone Ekaterina Ryan DO Primary Care Provider Encounter Details Date Type Department Care Team (Late st Contact Info) Description 11/03/2007 Outpatient Historical [facility] Family Medicine- [place] [address] [place] [address] Jayson Espinoza, PANTOGRAPH SETTER [address] [place] [address] Social History Tobacco Use Types Packs/Day Years Used Date Smoking Tobacco: Never Assessed Comments Unknown Sex and Gender Information Value Date Recorded Sex Assigned at Not on file Legal Sex Female 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
--- OUTSIDE RECORDS SUMMARY | 2025-08-04 16:58 | XMS_ITS | Encounter Summary ---
Author Organization [facility] Address [address] [place] [address] Care Team Providers Care Supervisor Type Photography Name Role Phone Ekaterina Ryan Primary Care Provider Encounter Details Date Type Department Care Team (Latest Contact Info) Description 05/29/2005 Outpatient Historical [facility] [address] [place] [address] Terry Bhakta MD [address] [place] [address] ABDOMINAL PAIN UNSPEC SITE (Primary Dx) Social History Tobacco Use Types Packs/Day Years Used Date Smoking Tobacco: Never Assessed Comments Unknown Sex and Gender Information Value Date Recorded Sex Assigned at Not on file Legal Sex Female 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
--- OUTSIDE RECORDS SUMMARY | 2025-08-04 16:58 | XMS_ITS | Encounter Summary ---
Author Organization [facility] Address [address] [place] [address] Care Team Providers Care Tester Equipment Name Role Phone Ekaterina Ryan DO Primary Care Provider Encounter Details Date Type Department Care Team (Latest Contact Info) Description 07/23/2006 Outpatient Historical [facility] Family Medicine- [place] [address] [place] [address] Simone Cruz MD NO ADDRESS ON FILE Influenza with Other Respiratory Manifestations (Primary Dx) Social History Tobacco Use Types Packs/Day Years Used Date Smoking Tobacco: Never Assessed Comments Unknown Sex and Gender Information Value Date Recorded Sex Assigned at Not on file Legal Sex Female 5:00 AM FUNCTIONAL DIRECTOR Gender Identity Not on file Sexual Orientation Not on file documented as of this encounter Plan of Treatment Not on file documented as of this encounter Visit Diagnoses Diagnosis Influenza with other respiratory manifestations- Primary documented in this encounter Care Teams Tester Equipment Relationship Specialty Start Date End Date Ekaterina Ryan DO [address] [place] [facility] [place] [address] PCP - General Family Practice 09/30/10 documented as of this encounter
--- OUTSIDE RECORDS SUMMARY | 2025-08-04 16:58 | XMS_ITS | Encounter Summary ---
Author Organization [facility] Address [address] [place] [address] Care Team Providers Care Student Services Vice President Name Role Phone Ekaterina Ryan DO Primary Care Provider Encounter Details Date Type Department Care Team (Late st Contact Info) Description 10/24/2007 Outpatient Historical [facility] Family Medicine- [place] [address] [place] [address] Kyle Farmer MD [address] [place] [address] Social History Tobacco Use Types Packs/Day Years Used Date Smoking Tobacco: Never Assessed Comments Unknown Sex and Gender Information Value Date Recorded Sex Assigned at Not on file Legal Sex Female 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
--- OUTSIDE RECORDS SUMMARY | 2025-08-04 16:58 | XMS_ITS | Encounter Summary ---
Author Organization [facility] Address [address] [place] [address] Care Team Providers Care Tariff Publishing Agent Name Role Phone Ekaterina Ryan DO Primary Care Provider Encounter Details Date Type Department Care Team (Latest Contact Info) Description 06/03/2005 Outpatient Historical [facility] General Surgery [address] [address] [address] [place] [address] Terry Bentley MD [address] [facility], [address] [place], [place] [address] Umbilical hernia (Primary Dx) Social History Tobacco Use Types Packs/Day Years Used Date Smoking Tobacco: Never Assessed Comments Unknown Sex and Gender Information Value Date Recorded Sex Assigned at Not on file Legal Sex Female 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
--- OUTSIDE RECORDS SUMMARY | 2025-08-04 16:58 | XMS_ITS | Encounter Summary ---
Author Organization [facility] Address [address] [place] [address] Care Team Providers Care Flooring Sales Manager Name Role Phone Ekaterina Ryan DO Primary Care Provider Encounter Details Date Type Department Care Team (Latest Contact Info) Description 06/09/2005 Outpatient Historical [facility] General Surgery [address] [address] [address] [place] [address] Terry Bentley MD [address] [facility], [address] [place], [place] [address] SURGERY FOLLOWUP NOS (Primary Dx) Social History Tobacco Use Types Packs/Day Years Used Date Smoking Tobacco: Never Assessed Comments Unknown Sex and Gender Information Value Date Recorded Sex Assigned at Not on file Legal Sex Female 5:00 AM QUALITY SUPERVISOR Gender Identity Not on file Sexual Orientation Not on file documented as of this encounter Plan of Treatment Not on file documented as of this encounter Visit Diagnoses Diagnosis Follow-up examination, following unspecified surgery- Primary documented in this encounter Care Teams Flooring Sales Manager Relationship Specialty Start Date End Date Ekaterina Ryan DO [address] [place] [address] PCP - General Family Practice 09/30/10 documented as of this encounter
--- OUTSIDE RECORDS SUMMARY | 2025-08-04 16:58 | XMS_ITS | Encounter Summary ---
Author Organization [facility] Address [address] [place] [address] Care Team Providers Care Rn Home Health Name Role Phone Ekaterina Ryan DO Primary Care Provider Encounter Details Date Type Department Care Team (Latest Contact Info) Description 05/29/2005 Outpatient Historical [facility] Medicine- [place] [address] [place] [address] Terry Bhakta MD [address] [place] [phone] ABDOMINAL PAIN UNSPEC SITE (Primary Dx) Social History Tobacco Use Types Packs/Day Years Used Date Smoking Tobacco: Never Assessed Comments Unknown Sex and Gender Information Value Date Recorded Sex Assigned at Not on file Legal Sex Female 5:00 AM PRESS SETTER Gender Identity Not on file Sexual Orientation Not on file documented as of this encounter Plan of Treatment Not on file documented as of this encounter Visit Diagnoses Diagnosis Abdominal pain, unspecified site- Primary documented in this encounter Care Teams Rn Home Health Relationship Specialty Start Date End Date Ekaterina Ryan DO [address] [place] [facility] [place] [facility] [place] [address] PCP - General Family Practice 09/30/10 documented as of this encounter
--- OUTSIDE RECORDS SUMMARY | 2025-08-04 16:58 | XMS_ITS | Encounter Summary ---
Author Organization [facility] Address [address] [place] [address] Care Team Providers Care Animal Scientist Name Role Phone Ekaterina Ryan DO Primary Care Provider Encounter Details Date Type Department Care Team (Latest Contact Info) Description 12/28/[address] [facility] Family Medicine- [place] [address] [place] [address] Simone Cruz MD NO ADDRESS ON FILE Headache (Primary Dx) Social History Tobacco Use Types Packs/Day Years Used Date Smoking Tobacco: Never Assessed Comments Unknown Sex and Gender Information Value Date Recorded Sex Assigned at Not on file Legal Sex Female 5:00 AM TRANSPORTATION ANALYST Gender Identity Not on file Sexual Orientation Not on file documented as of this encounter Plan of Treatment Not on file documented as of this encounter Visit Diagnoses Diagnosis Headache(784.0)- Primary Headache documented in this encounter Care Teams Animal Scientist Relationship Specialty Start Date End Date Ekaterina Ryan DO [address] [place] [facility] [place] [address] PCP - General Family Practice 09/30/10 documented as of this encounter
--- OUTSIDE RECORDS SUMMARY | 2025-08-04 16:58 | XMS_ITS | Encounter Summary ---
Author Organization [facility] Address [address] [place] [address] Care Team Providers Care Feather Boner Name Role Phone Ekaterina Ryan DO Primary Care Provider Encounter Details Date Type Department Care Team (Latest Contact Info) Description 06/02/2005 Outpatient Historical [facility] General Surgery [address] [address] [address] [place] [address] Terry Bentley MD [address] [facility], [address] [place], [place] [address] Umbilical hernia (Primary Dx) Social History Tobacco Use Types Packs/Day Years Used Date Smoking Tobacco: Never Assessed Comments Unknown Sex and Gender Information Value Date Recorded Sex Assigned at Not on file Legal Sex Female 5:00 AM COMPUTER SYSTEM SPECIALIST Gender Identity Not on file Sexual Orientation Not on file documented as of this encounter Plan of Treatment Not on file documented as of this encounter Visit Diagnoses Diagnosis Umbilical hernia- Primary Umbilical hernia without mention of obstruction or gangrene documented in this encounter Care Teams Feather Boner Relationship Specialty Start Date End Date Ekaterina Ryan DO [address] [place] [address] PCP - General Family Practice 09/30/10 documented as of this encounter
--- OUTSIDE RECORDS SUMMARY | 2025-08-04 16:58 | XMS_ITS | Encounter Summary ---
Author Organization [facility] Address [address] [place] [address] Care Team Providers Care Tentmaker Name Role Phone Ekaterina Ryan DO Primary Care Provider [phone] Encounter Details Date Type Department Care Team (Latest Contact Info) Description 04/11/2007 Outpatient Historical [facility] Orthopedics- [address] [place] [address] Carlos Paige MD NO ADDRESS ON FILE Cervicalgia (Primary Dx); Degeneration of Cervical Intervertebral Disc; Lumbago; Pain in Joint, Shoulder Region Social History Tobacco Use Types Packs/Day Years Used Date Smoking Tobacco: Never Assessed Comments Unknown Sex and Gender Information Value Date Recorded Sex Assigned at Not on file Legal Sex Female 5:00 AM SENIOR PAYROLL ADMINISTRATOR Gender Identity Not on file Sexual Orientation Not on file documented as of this encounter Plan of Treatment Not on file documented as of this encounter Visit Diagnoses Diagnosis Cervicalgia- Primary Degeneration of cervical intervertebral disc Lumbago Pain in joint, shoulder region documented in this encounter Care Teams Tentmaker Relationship Specialty Start Date End Date Ekaterina Ryan DO [address] [place] [address] PCP - General Family Practice 09/30/10 documented as of this encounter
--- OUTSIDE RECORDS SUMMARY | 2025-08-04 16:58 | XMS_ITS | Encounter Summary ---
Author Organization [facility] Address [address] [place] [address] Care Team Providers Care Aging Department Supervisor Name Role Phone Ekaterina Ryan DO Primary Care Provider Encounter Details Date Type Department Care Team (Latest Contact Info) Description 06/16/2006 Outpatient Historical [facility] Medicine- [place] [address] [place] [address] Simone Cruz MD NO ADDRESS ON FILE Other Symptoms Involving Abdomen and Pelvis (Primary Dx); Abdominal Pain, Unspecified Site Social History Tobacco Use Types Packs/Day Years Used Date Smoking Tobacco: Never Assessed Comments Unknown Sex and Gender Information Value Date Recorded Sex Assigned at Not on file 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
--- OUTSIDE RECORDS SUMMARY | 2025-08-04 16:58 | XMS_ITS | Encounter Summary ---
Author Organization [facility] Address [address] [place] [address] Care Team Providers Care High School Music Instructor Name Role Phone Ekaterina Ryan DO Primary Care Provider Encounter Details Date Type Department Care Team (Latest Contact Info) Description 02/14/2004 Outpatient Historical [facility] Medicine- [place] [address] [place] [address] Terry Bhakta MD [address] [place] [phone] OTITIS MEDIA NOS (Primary Dx) Social History Tobacco Use Types Packs/Day Years Used Date Smoking Tobacco: Never Assessed Comments Unknown Sex and Gender Information Value Date Recorded Sex Assigned at Not on file Legal Sex Female 5:00 AM STATION EXAMINER Gender Identity Not on file Sexual Orientation Not on file documented as of this encounter Plan of Treatment Not on file documented as of this encounter Visit Diagnoses Diagnosis Unspecified otitis media- Primary documented in this encounter Care Teams High School Music Instructor Relationship Specialty Start Date End Date Ekaterina Ryan DO [address] [place] [address] PCP - General Family Practice 09/30/10 documented as of this encounter
--- OUTSIDE RECORDS SUMMARY | 2025-08-04 16:59 | XMS_ITS | Encounter Summary ---
Author Organization [facility] Address [address] [place] [address] Care Team Providers Care Fx Artist Name Role Phone Ekaterina Ryan DO Primary Care Provider Encounter Details Date Type Department Care Team (Latest Contact Info) Description 12/07/2003 Outpatient Historical [facility] Kwaku Mosley MD [address] [place] [address] DIARRHEA NOS (Primary Dx); TOBACCO USE DISORDER Social History Tobacco Use Types Packs/Day Years Used Date Smoking Tobacco: Never Assessed Comments Unknown Sex and Gender Information Value Date Recorded Sex Assigned at Not on file Legal Sex Female 5:00 AM KAIAKO KOHANGA REO Gender Identity Not on file Sexual Orientation Not on file documented as of this encounter Plan of Treatment Not on file documented as of this encounter Visit Diagnoses Diagnosis Diarrhea- Primary Tobacco use disorder documented in this encounter Care Teams Fx Artist Relationship Specialty Start Date End Date Ekaterina Ryan DO [address] [place] [address] PCP - General Family Practice 09/30/10 documented as of this encounter
--- OUTSIDE RECORDS SUMMARY | 2025-08-04 16:59 | XMS_ITS | Encounter Summary ---
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
--- OUTSIDE RECORDS SUMMARY | 2025-08-04 16:59 | XMS_ITS | Encounter Summary ---
Author Organization [facility] Address [address] [place] [address] Care Team Providers Care Furniture Sales Associate Name Role Phone Ekaterina Ryan DO Primary Care Provider Encounter Details Date Type Department Care Team (Latest Contact Info) Description 12/12/2003 Outpatient Historical 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
--- OUTSIDE RECORDS SUMMARY | 2025-08-04 16:59 | XMS_ITS | Encounter Summary ---
Author Organization [facility] Address [address] [place] [address] Care Team Providers Care Sweatband Maker Name Role Phone Ekaterina Ryan DO Primary Care Provider Encounter Details Date Type Department Care Team (Latest Contact Info) Description 03/08/2006 Outpatient Historical [facility] Hilary Dewey MD [address] [place] [phone] Lump or Mass in Breast (Primary Dx) Social History Tobacco Use Types Packs/Day Years Used Date Smoking Tobacco: Never Assessed Comments Unknown Sex and Gender Information Value Date Recorded Sex Assigned at Not on file 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
--- OUTSIDE RECORDS SUMMARY | 2025-08-04 16:59 | XMS_ITS | Encounter Summary ---
Author Organization [facility] Address [address] [place] [address] Care Team Providers Care Geography Head Name Role Phone Ekaterina Ryan DO Primary Care Provider [phone] Encounter Details Date Type Department Care Team (Latest Contact Info) Description 11/27/2003 Outpatient Historical [facility] Medicine- [place] [address] [place] [address] Terry Bhakta MD [address] [place] [phone] ABDOMINAL PAIN UNSPEC SITE (Primary Dx) Social History Tobacco Use Types Packs/Day Years Used Date Smoking Tobacco: Never Assessed Comments Unknown Sex and Gender Information Value Date Recorded Sex Assigned at Not on file 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
--- OUTSIDE RECORDS SUMMARY | 2025-08-04 16:59 | XMS_ITS | Encounter Summary ---
Author Organization [facility] Address [address] [place] [address] Care Team Providers Care Foreclosure Paralegal Name Role Phone Ekaterina Ryan DO Primary Care Provider Encounter Details Date Type Department Care Team (Latest Contact Info) Description 01/08/2004 Outpatient Historical [facility] Medicine- [place] [address] [place] [address] Terry Bhakta MD [address] [place] [phone] PYELONEPHRITIS NOS (Primary Dx) Social History Tobacco Use Types Packs/Day Years Used Date Smoking Tobacco: Never Assessed Comments Unknown Sex and Gender Information Value Date Recorded Sex Assigned at Not on file Legal Sex Female 5:00 AM BEAUTY ADVISOR Gender Identity Not on file Sexual Orientation Not on file documented as of this encounter Plan of Treatment Not on file documented as of this encounter Visit Diagnoses Diagnosis Pyelonephritis, unspecified- Primary documented in this encounter Care Teams Foreclosure Paralegal Relationship Specialty Start Date End Date Ekaterina Ryan DO [address] [facility] [place] [address] PCP - General Family Practice 09/30/10 documented as of this encounter
--- OUTSIDE RECORDS SUMMARY | 2025-08-04 16:59 | XMS_ITS | Encounter Summary ---
Author Organization [facility] Address [address] [place] [address] Care Team Providers Care Gas Dispenser Name Role Phone Ekaterina Ryan DO Primary Care Provider Encounter Details Date Type Department Care Team (Latest Contact Info) Description 03/08/2006 Outpatient Historical [facility] [address] [facility] [address] [place] [address] Topher Roy MD NO ADDRESS ON FILE Other Sign and Symptom in Breast (Primary Dx) Social History Tobacco Use Types Packs/Day Years Used Date Smoking Tobacco: Never Assessed Comments Unknown Sex and Gender Information Value Date Recorded Sex Assigned at Not on file Legal Sex Female 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
--- OUTSIDE RECORDS SUMMARY | 2025-08-04 16:59 | XMS_ITS | Encounter Summary ---
Author Organization [facility] Address [address] [place] [address] Care Team Providers Care Classification Officer Name Role Phone Ekaterina Ryan DO Primary Care Provider Encounter Details Date Type Department Care Team (Latest Contact Info) Description 01/08/2004 Outpatient Historical [facility] Medicine- [place] [address] [place] [address] Terry Bhakta MD [address] [place] [phone] PYELONEPHRITIS NOS (Primary Dx) Social History Tobacco Use Types Packs/Day Years Used Date Smoking Tobacco: Never Assessed Comments Unknown Sex and Gender Information Value Date Recorded Sex Assigned at Not on file Legal Sex Female 5:00 AM WARDROBE STYLIST Gender Identity Not on file Sexual Orientation Not on file documented as of this encounter Plan of Treatment Not on file documented as of this encounter Visit Diagnoses Diagnosis Pyelonephritis, unspecified- Primary documented in this encounter Care Teams Classification Officer Relationship Specialty Start Date End Date Ekaterina Ryan DO [address] [facility] [place] [address] PCP - General Family Practice 09/30/10 documented as of this encounter
--- OUTSIDE RECORDS SUMMARY | 2025-08-04 16:59 | XMS_ITS | Encounter Summary ---
Author Organization [facility] Address [address] [place] [address] Care Team Providers Care Cyber Security Manager Name Role Phone Ekaterina Ryan DO Primary Care Provider Encounter Details Date Type Department Care Team (Latest Contact Info) Description 11/27/2003 Outpatient Historical [facility] Medicine- [place] [address] [place] [address] Terry Bhakta MD [address] [place] [phone] ABDOMINAL PAIN OTHER SPEC SITE (Primary Dx) Social History Tobacco Use Types Packs/Day Years Used Date Smoking Tobacco: Never Assessed Comments Unknown Sex and Gender Information Value Date Recorded Sex Assigned at Not on file 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
--- OUTSIDE RECORDS SUMMARY | 2025-08-04 17:00 | XMS_ITS | Encounter Summary ---
Author Organization [facility] Address [address] [place] [address] Care Team Providers Care A/C Technician Name Role Phone Ekaterina Ryan DO Primary Care Provider Encounter Details Date Type Department Care Team (Latest Contact Info) Description 09/28/2005 Outpatient Historical [facility] Medicine- [place] [address] [place] [address] Terry Bhakta MD [address] [place] [phone] FEMALE GENITAL SYMPTOMS NOS (Primary Dx) Social History Tobacco Use Types Packs/Day Years Used Date Smoking Tobacco: Never Assessed Comments Unknown Sex and Gender Information Value Date Recorded Sex Assigned at Not on file 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
--- OUTSIDE RECORDS SUMMARY | 2025-08-04 17:00 | XMS_ITS | Clinical Summary ---
Author Organization [facility] Address [address] [facility] [place] [address] Care Team Providers Care Double End Chucking Machine Operator Name Role Phone ConnorEkaterina bertrand Wilber LEMONS Primary Care Provider Allergies Active Allergy Reactions Criticality Noted Date Comments Tetanus Toxoid Swelling High 12/19/2018 Topiramate Anaphylaxis High 12/19/2018 Medications albuterol HFA 90 mcg inhalerIndication s:COPD with exacerbation ([facility]) INHALE 2 PUFFS BY MOUTH EVERY 6 HOURS NEEDED FOR SHORTNESS OF BREATH 8.5 Gram 11 1 Active fluconazole (DIFLUCAN) 100 mg tabletIndications :Antibiotic-induc ed yeast infection Take 1 Tablet (100 mg) by mouth daily. 2 Tablet 1 1 Active fluticasone propionate (FLONASE) 50 mcg/spray [place], Suspension nasal inhalerIndication s:Middle ear effusion, bilateral,Acute [...] on file Legal Sex Female 5:00 AM PROMOTIONS ASSISTANT Gender Identity Not on file Sexual [...] 2022 INFLUENZA VACCINE (#1) 2025 Care Teams Double End Chucking Machine Operator Relationship Specialty Start Date End Date Ekaterina Ryan DO [address] [place] [address] PCP - General Family Practice 09/30/10
--- OUTSIDE RECORDS SUMMARY | 2025-08-04 17:00 | XMS_ITS | Encounter Summary ---
Author Organization [facility] Address [address] [place] [address] Care Team Providers Care Waste Water Or Water Plant Operator Name Role Phone Ekaterina Ryan DO Primary Care Provider Encounter Details Date Type Department Care Team (Latest Contact Info) Description 11/18/2005 Outpatient Historical [facility] General Surgery [address] [address] [address] [place] [address] Terry Bentley MD [address] [facility], [address] [place], [place] [address] ABDOMINAL PAIN OTHER SPEC SITE (Primary Dx) Social History Tobacco Use Types Packs/Day Years Used Date Smoking Tobacco: Never Assessed Comments Unknown Sex and Gender Information Value Date Recorded Sex Assigned at Not on file 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
--- OUTSIDE RECORDS SUMMARY | 2025-08-04 17:00 | XMS_ITS | Encounter Summary ---
Author Organization [facility] Address [address] [place] [address] Care Team Providers Care Coffee Supervisor Name Role Phone Ekaterina Ryan DO Primary Care Provider Encounter Details Date Type Department Care Team (Late st Contact Info) Description 11/11/2005 Outpatient Historical [facility] McTerry fields MD [address] [facility], [address] [place], [place] [address] Social History Tobacco Use Types Packs/Day Years Used Date Smoking Tobacco: Never Assessed Comments Unknown Sex and Gender Information Value Date Recorded Sex Assigned at Not on file Legal Sex Female 5:00 AM MANAGER GENERATION Gender Identity Not on file Sexual Orientation Not on file documented as of this encounter Plan of Treatment Not on file documented as of this encounter Procedures Procedure Name Priority Date/Time Associated Diagnosis Comments CT ABDOMEN PELVIS W CONTRAST Routine 11/11/2005 8:45 AM MANAGER GENERATION documented in this encounter Results * CT ABDOMEN PELVIS W CONTRAST (11/11/2005 8:45 AM MANAGER GENERATION) Anatomical Region Laterality Modality Abdomen Other 11/11/2005 8:45 AM MANAGER GENERATION Narrative 11/11/2005 8:[address] ABDOMEN AND PELVIS: 11-11-05 CLINICAL INFORMATION [...] more specific assessment if clinically warranted. [facility] ER D: 11-11-05 0959 Dictated By: Rubin Chowdary [...] formore specific assessment if clinically warranted. [facility] ER D: 11-11-05 0959 Dictated By: Rubin Chowdary M.D. Electronically Signed By: Rubin Chowdary M.D. Date Signed: 11/11/05 us Terry Bentley MD CT ORDERABLES Final Result documented in this encounter Visit Diagnoses Not on filedocumented in this encounter Care Teams Coffee Supervisor Relationship Specialty Start Date End Date Ekaterina Ryan DO [address] [place] [address] PCP - General Family Practice 09/30/10 documented as of this encounter
--- OUTSIDE RECORDS SUMMARY | 2025-08-04 17:00 | XMS_ITS | Encounter Summary ---
Author Organization [facility] Address [address] [place] [address] Care Team Providers Care Fur Designer Name Role Phone Ekaterina Ryan DO Primary Care Provider Encounter Details Date Type Department Care Team (Latest Contact Info) Description 06/24/2005 Outpatient Historical [facility] General Surgery [address] [address] [address] [place] [address] Terry Bentley MD [address] [facility], [address] [place], [place] [address] SURGERY FOLLOWUP NOS (Primary Dx) Social History Tobacco Use Types Packs/Day Years Used Date Smoking Tobacco: Never Assessed Comments Unknown Sex and Gender Information Value Date Recorded Sex Assigned at Not on file 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
--- OUTSIDE RECORDS SUMMARY | 2025-08-04 17:00 | XMS_ITS | Encounter Summary ---
Author Organization [facility] Address [address] [place] [address] Care Team Providers Care Computerized Mill Mill Recorder Name Role Phone Ekaterina Ryan DO Primary Care Provider [phone] Encounter Details Date Type Department Care Team (Late st Contact Info) Description 02/19/2006 Outpatient Historical [facility] Family Medicine- [place] [address] [place] [address] Social History Tobacco Use Types Packs/Day Years Used Date Smoking Tobacco: Never Assessed Comments Unknown Sex and Gender Information Value Date Recorded Sex Assigned at Not on file Legal Sex Female 5:00 AM INFUSION THERAPY NURSE Gender Identity Not on file Sexual Orientation Not on file documented as of this encounter Plan of Treatment Not on file documented as of this encounter Visit Diagnoses Not on filedocumented in this encounter Care Teams Computerized Mill Mill Recorder Relationship Specialty Start Date End Date Ekaterina Ryan DO [address] [place] [address] PCP - General Family Practice 09/30/10 documented as of this encounter
--- OUTSIDE RECORDS SUMMARY | 2025-08-04 17:00 | XMS_ITS | Encounter Summary ---
Author Organization [facility] Address [address] [place] [address] Care Team Providers Care Carton Marker Machine Name Role Phone Ekaterina Ryan DO Primary Care Provider Encounter Details Date Type Department Care Team (Latest Contact Info) Description 05/13/2006 Outpatient Historical [facility] Family Medicine- [place] [address] [place] [address] Simone Cruz MD NO ADDRESS ON FILE Headache (Primary Dx); Esophageal Reflux Social History Tobacco Use Types Packs/Day Years Used Date Smoking Tobacco: Never Assessed Comments Unknown Sex and Gender Information Value Date Recorded Sex Assigned at Not on file Legal Sex Female 5:00 AM TEACHER EMOTIONALLY 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
--- OUTSIDE RECORDS SUMMARY | 2025-08-04 17:00 | XMS_ITS | Encounter Summary ---
Author Organization [employer] [facility] Address [address] [place] [address] Care Team Providers Care Mogul Operator Name Role Phone Ekaterina Ryan DO Primary Care Provider Encounter Details Date Type Department Care Team (Latest Contact Info) Description 02/09/2006 [facility] [address] 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
--- OUTSIDE RECORDS SUMMARY | 2025-08-04 17:00 | XMS_ITS | Clinical Summary ---
Author Organization [facility] Address [address] Attn: Epic Prelude ADT ANITRA CANO [address] Care Team Providers Care Moose Hunter Name Role Phone ConnorEkaterina bertrand Wilber LEMONS Primary Care Provider Allergies Active Allergy Reactions Criticality Noted Date Comments Bee Venom Protein (Honey Bee) Anaphylaxis High 06/01 [place] Anaphylaxis High 06/01/2023 Tetanus Toxoid Swelling High 12/19/2018 Topiramate Anaphylaxis High 12/19/2018 Medications albuterol sulfate HFA 90 mcg/actuation aerosol inhalerIndicatio ns:COPD with exacerbation ([facility]) Take 2 Puffs by inhalation every 4 hours as needed for Shortness of Breath or Wheezing. 8.5 Gram 5 3 Active fluticasone propionate (FLONASE) 50 mcg/spray [place], Suspension nasal inhalerIndicatio ns:Non-recurrent acute serous otitis [...] dysfunction of right eustachian tube Administer 1 [place] in each nostril 2 times daily. 30 [...] on file Legal Sex Female 2:41 AM RESET MERCHANDISER Gender Identity Not on file Sexual Orientation Not on file Last Filed Vital Signs Vital Sign Reading Time Taken Comments Blood Pressure 122/66 12/05/2024 10:44 AM RESET MERCHANDISER Pulse 88 12/05/2024 10:44 AM RESET MERCHANDISER Temperature 36.6 C (97.8 F) 12/05/2024 10:44 AM RESET MERCHANDISER Respiratory Rate 17 12/05/2024 10:44 AM RESET MERCHANDISER Oxygen Saturation 98% 12/05/2024 10:44 AM RESET MERCHANDISER Inhaled Oxygen Concentration - - Weight 68.6 kg (151 lb 3.2 oz) 12/05/2024 10:44 AM RESET MERCHANDISER Height 160 cm (5' 3 ) 12/05/2024 10:44 AM RESET MERCHANDISER Body Mass Index 26.78 12/05/2024 10:44 AM RESET MERCHANDISER Plan of Treatment Health Maintenance Due Date [...] 10/18/2024 INFLUENZA VACCINE (#1) 2025 Insurance [employer] [place] EXCHANGE [id number] [id number] Care Teams Moose Hunter Relationship Specialty Start Date End Date Ekaterina Ryan DO [address] [place] [address] PCP - General Family Practice 09/30/10
--- OUTSIDE RECORDS SUMMARY | 2025-08-04 17:00 | XMS_ITS | Encounter Summary ---
Author Organization [facility] Address [address] [place] [address] Care Team Providers Care Corking Machine Operator Name Role Phone Ekaterina Ryan Primary Care Provider Encounter Details Date Type Department Care Team (Latest Contact Info) Description 02/03/2006 Outpatient Historical [facility] [address] [place] [address] [address] George, MANAGER ESTATE [address] [place] [address] Hepatomegaly (Primary Dx) Social History Tobacco Use Types Packs/Day Years Used Date Smoking Tobacco: Never Assessed Comments Unknown Sex and Gender Information Value Date Recorded Sex Assigned at Not on file Legal Sex Female 5:[address] Gender Identity Not on file Sexual Orientation [...] Primary documented in this encounter Care Teams Corking Machine Operator Relationship Specialty Start Date End Date Ekaterina Ryan DO [address] [place] [address] PCP - General Family Practice 09/30/10 documented as of this encounter
--- OUTSIDE RECORDS SUMMARY | 2025-08-04 17:00 | XMS_ITS | Encounter Summary ---
Author Organization [facility] Address [address] [place] [address] Care Team Providers Care Park Superintendent Name Role Phone Ekaterina Ryan DO Primary Care Provider Encounter Details Date Type Department Care Team (Latest Contact Info) Description 11/04/2005 Outpatient Historical [facility] General Surgery [address] [address] [place] [address] [place] [address] [facility] [address] [place] [address] ABDOMINAL PAIN EPIGASTRIC (Primary Dx) Social History Tobacco Use Types Packs/Day Years Used Date Smoking Tobacco: Never Assessed Comments Unknown Sex and Gender Information Value Date Recorded Sex Assigned at Not on file 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
--- OUTSIDE RECORDS SUMMARY | 2025-08-04 17:00 | XMS_ITS | Encounter Summary ---
Author Organization [facility] Address [address] [place] [address] Care Team Providers Care Repairer Name Role Phone Ekaterina Ryan DO Primary Care Provider Encounter Details Date Type Department Care Team (Late st Contact Info) Description 11/10/[address] 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
--- OUTSIDE RECORDS SUMMARY | 2025-08-04 17:00 | XMS_ITS | Encounter Summary ---
Author Organization [facility] Address [address] [place] [address] Care Team Providers Care Pattern Chart Writer Name Role Phone Ekaterina Ryan DO Primary Care Provider Encounter Details Date Type Department Care Team (Latest Contact Info) Description 05/19/2006 Outpatient Historical [facility] Family Medicine- [place] [address] [place] [address] Simone Cruz MD NO ADDRESS ON FILE Inflam Disease of Breast (Primary Dx); Irregular Menstruation Social History Tobacco Use Types Packs/Day Years Used Date Smoking Tobacco: Never Assessed Comments Unknown Sex and Gender Information Value Date Recorded Sex Assigned at Not on file Legal Sex Female 5:00 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
--- OUTSIDE RECORDS SUMMARY | 2025-08-04 17:00 | XMS_ITS | Encounter Summary ---
Author Organization [facility] Address [address] [place] [address] Care Team Providers Care Production Team Member Name Role Phone Ekaterina Ryan DO Primary Care Provider Encounter Details Date Type Department Care Team (Latest Contact Info) Description 05/04/2006 Outpatient Historical [facility] Medicine- [place] [address] [place] [address] Simone Cruz MD NO ADDRESS ON FILE Headache (Primary Dx); Unspecified Visual Disturbance; Diarrhea; Esophageal Reflux Social History Tobacco Use Types Packs/Day Years Used Date Smoking Tobacco: Never Assessed Comments Unknown Sex and Gender Information Value Date Recorded Sex Assigned at Not on file Legal Sex Female 5:00 AM ADVANCED MANUFACTURING VICE 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
--- OUTSIDE RECORDS SUMMARY | 2025-08-04 17:00 | XMS_ITS | Encounter Summary ---
Author Organization [facility] Address [address] [place] [address] Care Team Providers Care Drafter Geological Name Role Phone Ekaterina Ryan DO Primary Care Provider Encounter Details Date Type Department Care Team (Latest Contact Info) Description 08/25/2005 Outpatient Historical [facility] Medicine- [place] [address] [place] [address] Terry Bhakta MD [address] [place] [phone] SPASM OF MUSCLE (Primary Dx) Social History Tobacco Use Types Packs/Day Years Used Date Smoking Tobacco: Never Assessed Comments Unknown Sex and Gender Information Value Date Recorded Sex Assigned at Not on file Legal Sex Female 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
--- OUTSIDE RECORDS SUMMARY | 2025-08-04 17:00 | XMS_ITS | Encounter Summary ---
Author Organization [facility] Address [address] [place] [address] Care Team Providers Care Direct Support Staff Member Name Role Phone Ekaterina Ryan DO Primary Care Provider Encounter Details Date Type Department Care Team (Latest Contact Info) Description 07/07/2005 Outpatient Historical [facility] General Surgery [address] [address] [place] [address] Terry Bentley MD [address] 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
--- OUTSIDE RECORDS SUMMARY | 2025-08-04 17:00 | XMS_ITS | Encounter Summary ---
Author Organization [facility] Address [address] [place] [address] Care Team Providers Care Adult Caregiver Name Role Phone Ekaterina Ryan DO Primary Care Provider [phone] Encounter Details Date Type Department Care Team (Latest Contact Info) Description 05/31/2006 Outpatient Historical [facility] Ophthalmology [address] [place] [address] Khalif Fallon MD NO ADDRESS ON FILE Vitreous Degeneration (Primary Dx) Social History Tobacco Use Types Packs/Day Years Used Date Smoking Tobacco: Never Assessed Comments Unknown Sex and Gender Information Value Date Recorded Sex Assigned at Not on file Legal Sex Female 5:00 AM FAMILY AND DIVORCE LEGAL ASSISTANT Gender Identity Not on file Sexual Orientation Not on file documented as of this encounter Plan of Treatment Not on file documented as of this encounter Visit Diagnoses Diagnosis Vitreous degeneration- Primary documented in this encounter Care Teams Adult Caregiver Relationship Specialty Start Date End Date Ekaterina Ryan DO [address] [place] [address] PCP - General Family Practice 09/30/10 documented as of this encounter
--- OUTSIDE RECORDS SUMMARY | 2025-08-04 17:00 | XMS_ITS | Encounter Summary ---
Author Organization [facility] Address [address] [place] [address] Care Team Providers Care Welding Instructor Name Role Phone Ekaterina Ryan DO Primary Care Provider Encounter Details Date Type Department Care Team (Latest Contact Info) Description 12/02/2005 Outpatient Historical [facility] General Surgery [address] [address] [address] [place] [address] Terry Bentley MD [address] [facility], [address] [place], [place] [address] SURGERY FOLLOWUP NOS (Primary Dx) Social History Tobacco Use Types Packs/Day Years Used Date Smoking Tobacco: Never Assessed Comments Unknown Sex and Gender Information Value Date Recorded Sex Assigned at Not on file Legal Sex Female 5:00 AM AUTO TECH Gender Identity Not on file Sexual Orientation Not on file documented as of this encounter Plan of Treatment Not on file documented as of this encounter Visit Diagnoses Diagnosis Follow-up examination, following unspecified surgery- Primary documented in this encounter Care Teams Welding Instructor Relationship Specialty Start Date End Date Ekaterina Ryan DO [address] [place] [address] PCP - General Family Practice 09/30/10 documented as of this encounter
--- OUTSIDE RECORDS SUMMARY | 2025-08-04 17:00 | XMS_ITS | Encounter Summary ---
Author Organization [facility] Address [address] [place] [address] Care Team Providers Care Passenger Car Upholsterer Apprentice Name Role Phone Ekaterina Ryan DO Primary Care Provider Encounter Details Date Type Department Care Team (Latest Contact Info) Description 02/09/2006 Outpatient Historical [facility] General Surgery [address] [address] [address] [place] [address] Terry Bentley MD [address] 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
--- OUTSIDE RECORDS SUMMARY | 2025-08-04 17:00 | XMS_ITS | Encounter Summary ---
Author Organization [facility] Address [address] [place] [address] Care Team Providers Care Animal Rehabilitator Name Role Phone Ekaterina Ryan DO Primary Care Provider Encounter Details Date Type Department Care Team (Latest Contact Info) Description 03/02/2006 Outpatient Historical [facility] Gen Spec S[address] [place] [address] Serge Flores MD [address] [place] [address] Umbilical Hernia (Primary Dx) Social History Tobacco Use Types Packs/Day Years Used Date Smoking Tobacco: Never Assessed Comments Unknown Sex and Gender Information Value Date Recorded Sex Assigned at Not on file Legal Sex Female 5:00 AM THREAD CUTTER Gender Identity Not on file Sexual Orientation Not on file documented as of this encounter Plan of Treatment Not on file documented as of this encounter Visit Diagnoses Diagnosis Umbilical hernia- Primary Umbilical hernia without mention of obstruction or gangrene documented in this encounter Care Teams Animal Rehabilitator Relationship Specialty Start Date End Date Ekaterina Ryan DO [address] [place] [address] PCP - General Family Practice 09/30/10 documented as of this encounter
--- OUTSIDE RECORDS SUMMARY | 2025-08-04 17:00 | XMS_ITS | Encounter Summary ---
Author Organization [facility] Address [address] [place] [address] Care Team Providers Care Manager Hospice Name Role Phone Ekaterina Ryan DO Primary Care Provider Encounter Details Date Type Department Care Team (Latest Contact Info) Description 02/03/2006 Outpatient Historical [facility]- [place] [address] [place] [address] [address] George, DECORATING MACHINE TENDER [address] [place] [address] Abdominal Pain, Unspecified Site (Primary Dx); Hepatomegaly; Other Malaise and Fatigue Social History Tobacco Use Types Packs/Day Years Used Date Smoking Tobacco: Never Assessed Comments Unknown Sex and Gender Information Value Date Recorded Sex Assigned at Not on file 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
--- NOTE | 2025-08-04 18:11 | USCV_ITS ---
Bisi Gentile Age: 55 Gender: F : 1970 Exam Date: 08/04/2025 08:28 Ordering Phys: Alberto Coats MD Technologist: Adan Mckenzie [place] [facility] [place]: unstable angina BP: 121 / 70 HR: Rhythm: Sinus Technical Quality: Adequate MEASUREMENTS (Male / Female) Normal Values 2D ECHO LV Diastolic Diameter PLAX 4.2 cm 4.2 - 5.9 / 3.9 - 5.3 cm IVS Diastolic Thickness 1.0 cm 0.6 - 1.0 / 0.6 - 0.9 cm IVS Systolic Thickness 1.3 cm LVPW Diastolic Thickness 1.2 cm 0.6 - 1.0 / 0.6 - 0.9 cm LVPW Systolic Thickness 2.0 cm LVOT Diameter 2.0 cm LV Ejection Fraction 2D Teich 61.3 % LA Diameter 3.0 cm RA Systolic Volume 4C AL 28.8 ml RA Systolic Volume 4C MOD 27.8 ml LA Sys Volume AL 42.2 cm cubed LA Sys Volume Index AL 24.5 cm cubed/m squared Aorta at Sinotubular Diameter 2.2 cm IVC Diameter 1.7 cm M-MODE LA Ao Ratio MM 1.7 AV Cusp Separation MM 1.9 cm FINDINGS Left Ventricle Normal left ventricular size, systolic function and wall thickness with no regional wall motion abnormality. Left ventricular ejection fraction is 55-60%. Normal left ventricular diastolic function. Right Ventricle Normal right ventricular size and systolic function. Right Atrium Normal right atrial size. Left Atrium Normal left atrial size. IA Septum Normal appearance of the interatrial septum. Mitral Valve Normal mitral valve structure. No mitral valve stenosis or regurgitation. Aortic Valve Normal aortic valve structure. No aortic valve stenosis or regurgitation. Tricuspid Valve Normal tricuspid valve structure. No tricuspid valve stenosis or regurgitation. Normal pulmonary pressure. Pulmonic Valve Normal pulmonic valve structure. No pulmonic valve stenosis or regurgitation. Pericardium No pericardial effusion. Aorta Normal diameter of the aortic root and ascending thoracic aorta. IVC Normal IVC diameter. CONCLUSIONS Normal left ventricular size, systolic function and wall thickness with ejection fraction of 55-60%. Normal right ventricular size and systolic function. No significant valvular findings. Jesse South MD, FACC (Electronically Signed) Final Date: 04 August 2025 14:31 S
[2025-08-04] MEDS: morphine 4 mg/mL SDV 1 mL 2 MG IVP (20:25)
[2025-08-04] MEDS: pantoprazole 40 mg SDV IVP (21:29)
[2025-08-05] VITALS (24 sets, daily range): BP systolic 105–157; BP diastolic 54–107; PULSE 56–81; RESP 13–23; TEMP 36.4–36.7; O2SAT 95–99
[2025-08-05 03:44] LABS: Hematocrit 37.9 % (36-47); Hemoglobin 12.70 g/dL (11.27-16.99); Mean Corpuscular HGB Conc 33.5 g/dL (30-55); Mean Corpuscular Hemoglobin 32.5 pg (27-33); Mean Corpuscular Volume 96.9 fl (85-98); Nucleated Red Blood Cells % 0 %; Platelet Count 199 10^3/cmm (157-399); Red Blood Count 3.91 10^6/uL (3.85-5.65); White Blood Count 4.80 10^3/uL (3.29-11.43)
[2025-08-05 04:06] LABS: Alanine Aminotransferase 31 U/L (0-33); Albumin Level 4.1 g/dL (3.5-5.2); Alkaline Phosphatase 114 U/L (35-105); Anion Gap 13.0 (5-19); Aspartate Amino Transferase 23 U/L (0-32); Blood Urea Nitrogen 17 mg/dL (6-20); Calcium 9.0 mg/dL (8.5-10.5); Carbon Dioxide 26 mmol/L (22-29); Chloride 108 mmol/L (98-107); Creatinine Clr Calc Pharmacy 99.2163; Globulin 2.4 g/dL (1.3-4.6); Glucose 88 mg/dL (65-115); Magnesium 2.1 mg/dL (1.7-2.3); Osmolality Calculated 297 mOsm/kg (285-295); Potassium 4.0 mmol/L (3.5-5.1); Sodium 143 mmol/L (136-145); Total Protein 6.5 g/dL (6.6-8.7)
[2025-08-05] MEDS: metoprolol succinate ER (24 HR) 25 mg Tablet 12.5 MG PO (04:36)
[2025-08-05] MEDS: LOSARTAN 25 MG TABLET 50 MG PO (04:36)
--- NOTE | 2025-08-05 10:38 | P.PN_ITS ---
Subjective 2 Subjective: Still with intermittent left sided chest pressure Vitals/I&O/Wt Last Vital Signs Temp 97.8 F 08/05/25 07:32 Pulse 60 08/05/25 08:16 Resp 16 08/05/25 08:16 BP 143/78 08/05/25 07:32 Pulse Ox 98 08/05/25 08:16 O2 Del Method Room Air 08/05/25 08:16 08/04/25 08/05/25 08/05/25 22:59 06:59 14:59 Intake Total 600 / 1800 240 / 0 Balance 600 / 1800 240 / 2040 Weight last 48 hrs Weight 146 lb 2.664 oz Weight 145 lb 15.136 oz Weight 145 lb 11.609 oz Weight 135 lb Physical Exam 2 Narrative: General: In no acute distress Neck: No jugular venous distention or carotid bruits Heart: Normal S1 and S2 with a regular rate and rhythm, no cardiac murmurs Lungs: Normal respiratory effort with no use of intercostal muscles, clear lungs sounds to auscultation Extremities: No lower extremity edema Neuro: Alert and oriented x 3 Chest not tender Data 08/05/25 03:00 08/05/25 03:00 Other data: Echo 08/04/25: Normal left ventricular size, systolic function and wall thickness with ejection fraction of 55-60%. Normal right ventricular size and systolic function. No significant valvular findings. A&P Assessment and plan 1. Unstable angina: 2. Coronary artery disease: 3. Nicotine dependence, cigarettes, in remission: 4. Ischemic cardiomyopathy: 5. S/P coronary artery stent placement: LHCs: 06/20 YVES LAD x 1 06/28 YVES Cx x2, YVES RI x 1 Plan: continues to have left chest discomfort despite antianginals With 4 stents placed in the last month and ongoing symptoms despite nitropaste, LHC indicated lovenox 1 mg/kg bid - morning dose held this am for cath today continue asa, plavix, metoprolol 12.5 mg bid - not increasing dose since HRs at goal in the 60s, losartan, atorvastatin to 80mg qhs EF improved from 48% to 55% on echo yesterday and no signs of CHF nitro paste 1/2 inch q 6 hours PDMP PDMP Reviewed: Not Reviewed Attestations 2 Medical Necessity Statement*: needs 2 more midnights of hospitalization due to unstable angina Coding Level of Care Code 04160 Diagnoses Unstable angina I20.0 Coronary artery disease I25.10 Nicotine dependence, cigarettes, in remission F17.211 Ischemic cardiomyopathy I25.5 S/P coronary artery stent placement Z95.5
--- NOTE | 2025-08-05 12:04 | P.PN_ITS ---
Subjective 2 Subjective: Patient remains with chest pain syndrome Vitals/I&O/Wt Last Vital Signs Temp 97.6 F 08/05/25 11:13 Pulse 68 08/05/25 11:13 Resp 18 08/05/25 11:13 BP 131/63 08/05/25 11:13 Pulse Ox 95 08/05/25 11:13 O2 Del Method Room Air 08/05/25 11:13 08/04/25 08/05/25 08/05/25 22:59 06:59 14:59 Intake Total 600 / 1800 240 / 0 Balance 600 / 1800 240 / 0 Weight last 48 hrs Weight 66.3 kg Weight 66.2 kg Weight 66.1 kg Weight 61.235 kg Physical Exam 2 Narrative: Alert and oriented no distress Heart regular normal S1-S2 without murmurs clicks gallops or rubs Lungs somewhat diminished and a few rhonchi that cleared with cough on the right Abdomen soft nontender nondistended positive bowel sounds Extremities no clubbing cyanosis edema Data 08/05/25 03:00 08/05/25 03:00 A&P Assessment and plan 1. Unstable angina: Patient with 2 separate incidents of PCI within the last month. Patient with 1 stent placed 06/20/2025 and then 3 stents placed 06/28/2025. Continue with aspirin, Plavix, statin, metoprolol, Lovenox 1 mg/kg body weight every 12 hourly. Appreciate cardiology consultation. [facility] today 2. Atherosclerotic heart disease of [place] coronary artery with other forms of angina pectoris: 3. Hx of placement of stent in anterior descending branch of left coronary artery: 4. Hypercholesterolemia: 5. Ischemic cardiomyopathy: Last echocardiogram on 06/19/2025: EF of 48% grade 1 diastolic dysfunction with trace MR. Currently patient euvolemic. Limited echocardiogram : Left Ventricle Normal left ventricular size, systolic function and wall thickness with no regional wall motion abnormality. Left ventricular ejection fraction is 55-60%. Normal left ventricular diastolic function. 6. Gastroesophageal reflux disease without esophagitis: Protonix daily. Plan: Hypertension: Goal blood pressure less than 130/85 mmHg. Blood pressure is elevated on admission. Continue with home dose of Imdur, metoprolol. Increased dose of losartan to 50 mg daily. Uptitrate as for goal blood pressure. [facility] today Full code Cardiac diet, n.p.o. after midnight Full dose Lovenox will be sufficient for DVT prophylaxis Protonix due to GERD no additional PUD prophylaxis indicated PDMP PDMP Reviewed: Not Reviewed Attestations 2 Medical Necessity Statement*: Continued hospitalization due to unstable angina. For heart cath today Coding Level of Care Code Acute Code for Chg Fwd Diagnoses Unstable angina I20.0 Atherosclerotic heart disease of [place] coronary artery with other forms of angina pectoris I25.118 Hx of placement of stent in anterior descending branch of left coronary artery Z95.5 Hypercholesterolemia E78.00 Ischemic cardiomyopathy I25.5 Gastroesophageal reflux disease without esophagitis K21.9 Esophagitis presence: without esophagitis
--- NOTE | 2025-08-05 13:11 | XACV_ITS ---
Exam Room: 2 Ht: 160 cm Wt: 66 kg BSA: 1.73 m2 Gender: Female : 1970 Any Known Allergies: Other Exam Priority: Routine Procedure(s): Procedure Description: Diagnostic procedure Procedure Description: Left Heart Catheterization Procedure Description: Left ventriculography Procedure Description: Coronary Angiography Diagnostic Cath Status: Elective Diagnostic Findings * INDICATION: Unstable angina. * No disease noted in the Left Main, Left Anterior Descending, Right, or Circumflex coronary arteries. Patent stents in LAD, Left circumflex artery and ramus. * Coronary angiography shows right dominance. Conclusions 1. No disease noted in the Left Main, Left Anterior Descending, Right, or Circumflex coronary arteries. Patent stents in LAD, Left circumflex artery and ramus. 2. Normal left ventricular systolic function. Ejection fraction of 65%. Recommendations * Patient will need uptitration of anti-anginal medications. Outpatient cardiology follow up. Interventional RX Recommendation: medical therapy and/or counseling Diagnostic RX Recommendation: medical therapy and/or counseling Anticoagulation: Heparin Ventriculography Ejection Fraction: 65.0 % Pressures Phase:Rest AO : 150 / 90 ( 117 ) @ 4:30:00 PM 151 / 98 ( 123 ) @ 4:32:00 PM 177 / 84 ( 125 ) @ 4:38:00 PM 191 / 92 ( 134 ) @ 4:38:00 PM LV : 177 / -15 / 13 @ 4:37:00 PM 173 / -15 / 17 @ 4:37:00 PM 172 / -14 / 16 @ 4:38:00 PM Valves Phase:DefaultPhase AV : 0.0 @ 3:42:50 PM AV Mean Gradient: 0.0 @ 3:42:50 PM Clinical Evaluation EBL: 5mL-10mL Procedural Details Pre-Procedure Time Out. Identified patient by full name and date of as verbalized by the patient/guarantor. Does the consent match the physician's order: Yes. Accurate & Complete Informed Consent: Yes. Inpatient/Outpatient History & Physical on Chart: Yes. If H&P is completed, is and addenduem needed: No; If yes, is the addendum complete: N/A. Visualize and Verify Site with Patient/Guarantor: N/A. Relevant Radiology Images available: Yes. Pre-op teaching completed and patient verbalized understanding. The risks, benefits, and alternatives of sedation and/or procedure were discussed by physician. The patient agrees to continue. Procedure started. [facility] Clinical Fraility Score: 3: Managing Well. 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 Chest Pain Symptom Assessment: Typical Angina Symptoms. Physician arrived. Correct patient, site and procedure confirmed by cath team. Vital chart was stopped. Current Diagnosis : Chest Pain. Current diagnosis: Chest Pain. PERRLA. 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 Lungs clear x 5 lobes. IV Site on Arrival: 18 gauge in the left anticubital. IV Fluids: 0.9% NaCl at KVO. 0 mL infused prior to pathology lab technician. Pre Procedural Pulses: right radial was 1+. Oxygen started at 2liters/min via nasal canula. right groin was prepped with chloroprep then draped in the usual sterile fashion. right radial was prepped with chloroprep then draped in the usual sterile fashion. Baseline sample Acquired. HR: 54 BPM. Physician scrubbed in. Immediate Pre-Procedure Time Out. Correct Patient: Yes; Correct Procedure: Yes; Correct Site: Yes; Correct Patient Position: Yes; Correct Supplies: Yes; Dried Flammable Prep: Yes; Blood Products Available: N/A;. Lidocaine 1% infiltrated to the right radial. Arterial access obtained. A 5 ugandan TIG catheter in over wire. Multiple views taken of left coronary artery. Catheter redirected to the RCA. Multiple views taken of right coronary artery. Catheter removed over the exchange wire. A 5 ugandan Angled Pig catheter in over wire. EDP Sample taken: LV 177/-16,13; HR: 73 BPM; SpO2: 100%. LV gram performed in KHAN @ 10 mL/second for a total of 30 mL. EDP Sample taken: LV 173/-16,17; HR: 74 BPM; SpO2: 100%. Pullback taken: LV 172/-15,16; AO 177/84(125); Mean: 0mmHg, Peak to Peak: 0mmHg, SEP: 7sec/min; HR: 74 BPM; SpO2: 100%. Catheter removed over the exchange wire. A TR Band was successful obtaining hemostatsis at the Right Radial artery insertion site. Vital chart was stopped. Post Procedure: Pulses reassessed and unchanged. PERRLA. 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 No VTE prophylaxis required. Medication's Wasted: Lidocaine 1% = 18 mL. Medication's Wasted: Nitro = 49.6 mcg. Medication's Wasted: Other = Fentanyl 25mcg Versed 1 mg. Total IV fluids: 25 mL. Post-op diagnosis: Non-obstructive CAD. Complications: None. Estimated blood loss: 5mL-10mL. Responsiveness - Normal response to verbal stimuli; alert and oriented, PERRLA. Airway - Unaffected, no intervention required; spontaneous ventilation. Circulation: W/N/L, pulses unchanged. Nausea/Vomiting: No. Procedure completed. Patient transferred by bed to 1st floor. Access Site Site: Right Radial artery Sheath Size: 6 Fr Hemostasis Method: TR Band Hemostasis Success: Successful Procedure Medications Start: 3:17 PM Stop: 3:17 PM Medication: Versed Amount: 1 mg Route: I.V. Start: 3:17 PM Stop: 3:17 PM Medication: Fentanyl Amount: 50 mcg Route: I.V. Start: 3:23 PM Stop: 3:23 PM Medication: Versed Amount: 1 mg Route: I.V. Start: 3:25 PM Stop: 3:25 PM Medication: Fentanyl Amount: 25 mcg Route: I.V. Start: 3:26 PM Stop: 3:26 PM Medication: Fentanyl Amount: 25 mcg Route: I.V. Start: 3:26 PM Stop: 3:26 PM Medication: Nitrogylcerin Amount: 200 mcg Route: I.A. Start: 3:28 PM Stop: 3:28 PM Medication: Versed Amount: 1 mg Route: I.V. Start: 3:30 PM Stop: 3:30 PM Medication: Heparin Amount: 5000 units Route: I.V. Start: 3:34 PM Stop: 3:34 PM Medication: Nitrogylcerin Amount: 200 mcg Route: I.A. I, the attending physician, have reviewed and verified all procedure medications. Yes, all medications given per verbal order History/Risk Factors Hypertension: No Dyslipidemia: No Peripheral Arterial Disease (PAD): No Myocardial Infarction (NC): No Obesity: No Renal Disease: No Tobacco Use: Current/Recent(w/in 1 year) Prior Interventions PCI: Yes Valve Surgery: No Date of PCI: 06/28/2025 Report Signatures Finalized by King Sparks MD on 08/05/2025 04:03 PM
--- NOTE | 2025-08-05 15:13 | W.PM.OPSUD ---
Surgery/Procedure H&P Update DATE OF PROCEDURE: August 05, 2025 DATE H&P PERFORMED: 08/03/25 H&P UPDATE INFORMATION: I have reviewed H&P completed within last 30 days, I have examined patient prior to procedure and No changes to prior documentation PREOP DIAGNOSIS: Unstable angina PRIMARY INDICATION FOR PROCEDURE: Unstable angina PLANNED PROCEDURE: Operation Date: 08/05/25 14:05 Proposed Procedures p Cardiac Catheterization(Not Applicable) - King Sparks M.D Possible percutaneous coronary intervention PATIENT REASSESSED PRIOR TO SEDATION, WITH NO CHANGE NOTED: Yes PHYSICAL EXAM: alert, oriented x 3, clear to auscultation bilaterally and regular rate & rhythm AIRWAY EVAL/ANESTHESIA PLAN: normal airway, ASA III, Local Anesthesia, Risks, benefits & alternatives of sedation and/or procedure discussed and Patient agrees to continue as planned ADDITIONAL INFORMATION: Moderate sedation
--- NOTE | 2025-08-05 15:19 | PC.NURSE ---
to cardiac shift lab technician via bed at 1515.
--- NOTE | 2025-08-05 16:12 | P.PN_ITS ---
Subjective 2 Subjective: cardiac cath completed. Patent stents and no new obstructive disease Vitals/I&O/Wt Last Vital Signs Temp 97.9 F 08/05/25 16:00 Pulse 73 08/05/25 16:00 Resp 15 08/05/25 16:00 BP 144/107 08/05/25 16:00 Pulse Ox 99 08/05/25 16:00 O2 Del Method Room Air 08/05/25 16:00 08/05/25 08/05/25 08/05/25 06:59 14:59 22:59 Intake Total 240 / 2040 Balance 240 / 2040 Weight last 48 hrs Weight 146 lb 2.664 oz Weight 145 lb 15.136 oz Weight 145 lb 11.609 oz Data 08/05/25 03:00 08/05/25 03:00 A&P Assessment and plan 1. Unstable angina: 2. Coronary artery disease: 3. Nicotine dependence, cigarettes, in remission: 4. Ischemic cardiomyopathy: 5. S/P coronary artery stent placement: LHCs: 06/20 YVES LAD x 1 06/28 YVES Cx x2, YVES RI x 1 Cath 08/05/25 with patent stents and no new obstructive lesions Plan: Can be discharged later today on current medical regimen plus change from nitropaste to imdur 60mg daily fu in our office in 2 weeks PDMP PDMP Reviewed: Not Reviewed Attestations 2 Medical Necessity Statement*: can discharge later today Coding Level of Care Code Acute Code for Chg Fwd Diagnoses Unstable angina I20.0 Coronary artery disease I25.10 Nicotine dependence, cigarettes, in remission F17.211 Ischemic cardiomyopathy I25.5 S/P coronary artery stent placement Z95.5
--- NOTE | 2025-08-05 16:28 | PM.DCS ---
Discharge Providers Date of Admission: 08/03/25 18:27 Date of Discharge: August 05, 2025 Attending Provider at Admission: Alberto Coats MD Attending Provider at Discharge: Gavino Edwards DO Consults: Cardiology Primary Care Provider: Evy Morales MD Diagnoses at Discharge Discharge Diagnosis 1. Unstable angina: 2. Coronary artery disease: 3. Nicotine dependence, cigarettes, in remission: 4. Ischemic cardiomyopathy: 5. S/P coronary artery stent placement: Reason for Visit Reason for Visit: CP SOB dizzy Brief History: Bisi Gentile is a 55 year old female with past medical history of CAD post PCI to LAD, LCx and intermedius artery in June presents to the ER today because of chest pain not being relieved by nitro. Patient states she has been having chest pain since discharge but will usually relieved by nitro but today the symptoms were not getting relieved hence she came to the ER. Denies any nausea, vomiting, headache. Symptoms are associated with dizziness. Currently patient is chest pain-free. Hospital Course Hospital Course Patient was admitted to the hospital for unstable angina. Cardiology consulted. They recommended repeat LHC. LHC showed no disease. All stents were patent. EF of 65% recommendations were to increase antianginal medications. Thus isosorbide mononitrate was increased from 30 mg to 60 mg. Also patient is having persistent hypertension and thus losartan was increased from 25 to 50 mg. It was also advised to increase atorvastatin from 40 to 80 mg q. bedtime. 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 echo limited [id number] Stat Ultrasound 08/04/25 18:11 Completed Pending at discharge Category Date Time Status Complete Blood Count w/Auto AM LABS Lab 08/06/25 04:00 Ordered Comprehensive Metabolic Panel AM LABS Lab 08/06/25 04:00 Ordered Magnesium AM LABS Lab 08/06/25 04:00 Ordered Phosphorus AM LABS Lab 08/06/25 04:00 Ordered Radiology Impressions Chest X-Ray 08/03/25 14:35 IMPRESSION: No acute chest abnormality. Laboratory Results WBC 4.80 10^3/uL (3.29-11.43) 08/05/25 03:00 RBC 3.91 10^6/uL (3.85-5.65) 08/05/25 03:00 Hgb 12.70 g/dL (11.27-16.99) 08/05/25 03:00 Hct 37.9 % (36-47) 08/05/25 03:00 MCV 96.9 fl (85-98) 08/05/25 03:00 MCH 32.5 pg (27-33) 08/05/25 03:00 MCHC 33.5 g/dL (30-55) 08/05/25 03:00 RDW 12.1 % (12.1-15.1) 08/05/25 03:00 Plt Count 199 10^3/cmm (157-399) 08/05/25 03:00 MPV 10.5 fL (7.4-10.4) H 08/05/25 03:00 Neut % (Auto) 36.1 % 08/05/25 03:00 Lymph % (Auto) 50.8 % 08/05/25 03:00 Faulkner % (Auto) 10.2 % 08/05/25 03:00 Eos % (Auto) 2.1 % 08/05/25 03:00 Baso % (Auto) 0.6 % 08/05/25 03:00 Neut # (Auto) 1.73 10^3/uL (1.8-7.7) L 08/05/25 03:00 Lymph # (Auto) 2.4 10^3/uL (0.8-4.8) 08/05/25 03:00 [place]ner # (Auto) 0.5 10^3/uL (0.2-0.9) 08/05/25 03:00 Eos # (Auto) 0.1 10^3/uL (0.0-0.8) 08/05/25 03:00 Baso # (Auto) 0.0 10^3/uL (0.0-0.1) 08/05/25 03:00 Nucleated RBC % (auto) 0 % 08/05/25 03:00 Nucleated RBCs # 0.0 /100WBC 08/05/25 03:00 Sodium 143 mmol/L (136-145) 08/05/25 03:00 Potassium 4.0 mmol/L (3.5-5.1) 08/05/25 03:00 Chloride 108 mmol/L (98-107) H 08/05/25 03:00 Carbon Dioxide 26 mmol/L (22-29) 08/05/25 03:00 Anion Gap 13.0 (5-19) 08/05/25 03:00 BUN 17 mg/dL (6-20) 08/05/25 03:00 Creatinine 0.6 mg/dL (0.5-0.9) 08/05/25 03:00 GFR Calculation 104.6 mL/min (90-130) 08/05/25 03:00 Glucose 88 mg/dL (65-115) 08/05/25 03:00 Estimat Average Glucose 108 08/03/25 14:46 Hemoglobin A1c 5.4 % (4.0-6.0) 08/03/25 14:46 Calculated Osmolality 297 mOsm/kg (285-295) H 08/05/25 03:00 Lactic Acid 1.1 mmol/L (0.5-2.2) 08/03/25 14:46 Calcium 9.0 mg/dL (8.5-10.5) 08/05/25 03:00 Phosphorus 4.9 mg/dL (2.5-4.5) H 08/05/25 03:00 Magnesium 2.1 mg/dL (1.7-2.3) 08/05/25 03:00 Total Bilirubin 0.3 mg/dL (0.15-1.2) 08/05/25 03:00 AST 23 U/L (0-32) 08/05/25 03:00 ALT 31 U/L (0-33) 08/05/25 03:00 Alkaline Phosphatase 114 U/L (35-105) H 08/05/25 03:00 Troponin T 5th Gen ng/L < 6 ng/L (0-10) 08/04/25 04:30 Troponin T Baseline < 6 ng/L (0-10) 08/03/25 14:46 Troponin T 120 Minute < 6.0 ng/L (0-10) 08/03/25 16:41 Delta Troponin T 0 ABS# (0-10) 08/03/25 16:41 Troponin T Hi Sens 6Hr < 6.0 ng/L (0-10) 08/03/25 20:59 Troponin T Hi Sens 6Hr Delta 0 ng/L (0-12) 08/03/25 20:59 NT-Pro-B Natriuret Pep 54 pg/mL (0-125) 08/03/25 14:46 Total Protein 6.5 g/dL (6.6-8.7) L 08/05/25 03:00 Albumin 4.1 g/dL (3.5-5.2) 08/05/25 03:00 Globulin 2.4 g/dL (1.3-4.6) 08/05/25 03:00 Triglycerides 254 mg/dL (0-150) H 08/04/25 04:30 Cholesterol 180 mg/dL (0-200) 08/04/25 04:30 LDL Cholesterol, Calc 93 mg/dL (50-129) 08/04/25 04:30 HDL Cholesterol 36 mg/dL (60-100) L 08/04/25 04:30 LDL/HDL Ratio 2.58 RATIO (0.00-3.22) 08/04/25 04:30 Cholesterol/HDL Ratio 5.00 mg/dL (0.0-4.40) H 08/04/25 04:30 Procalcitonin 0.02 ng/mL (0-0.5) 08/04/25 04:30 TSH 1.05 uIU/mL (0.27-4.20) 08/03/25 14:46 Procedures Performed Left heart catheterization: Conclusions 1. No disease noted in the Left Main, Left Anterior Descending, Right, or Circumflex coronary arteries. Patent stents in LAD, Left circumflex artery and ramus. 2. Normal left ventricular systolic function. Ejection fraction of 65%. Recommendations * Patient will need uptitration of anti-anginal medications. Outpatient cardiology follow up. Interventional RX Recommendation: medical therapy and/or counseling Diagnostic RX Recommendation: medical therapy and/or counseling Vitals Last Vital Signs Temp 97.9 F 08/05/25 16:00 Pulse 73 08/05/25 16:00 Resp 15 08/05/25 16:00 BP 144/107 08/05/25 16:00 Pulse Ox 99 10/19/25 16:00 O2 Del Method Room Air 08/05/25 16:00 Discharge Plan Discharge Patient Disposition: Home Condition: Stable Prescriptions: New losartan 25 mg Tablet 50 mg PO DAILY Qty: 30 0RF isosorbide mononitrate 60 mg tablet extended release 24 hr 60 mg PO QAM Qty: 30 0RF losartan 50 mg tablet 50 mg PO DAILY Qty: 30 0RF atorvastatin 40 mg Tablet 80 mg PO BEDTIME Qty: 30 0RF Continued Linzess 72 mcg capsule 72 mcg PO QAM Qty: 30 0RF metoprolol succinate 25 mg tablet extended release 24 hr 12.5 mg PO DAILY Qty: 90 3RF albuterol sulfate [Ventolin HFA] 90 mcg/actuation HFA aerosol inhaler 2 puff inhalation QID PRN (Reason: shortness of breath or wheezing) Qty: 8.5 5RF clopidogrel 75 mg tablet 75 mg PO DAILY Qty: 90 0RF aspirin 81 mg capsule 81 mg PO DAILY Qty: 30 0RF nitroglycerin 0.4 mg tablet, sublingual 0.4 mg sublingual Q5M PRN (Reason: chest pain) Qty: 10 0RF Rx Instructions: do not exceed 3 doses per episode Discontinued atorvastatin 40 mg tablet See Rx Instructions .ROUTE .COMPLEX Qty: 30 2RF Dose Instruction: TAKE ONE TABLET BY MOUTH BEDTIME Rx Instructions: TAKE ONE TABLET BY MOUTH BEDTIME losartan 25 mg tablet See Rx Instructions .ROUTE .COMPLEX Qty: 30 2RF Dose Instruction: TAKE ONE TABLET BY MOUTH DAILY Rx Instructions: TAKE ONE TABLET BY MOUTH DAILY isosorbide mononitrate 30 mg tablet extended release 24 hr 30 mg PO DAILY Qty: 90 3RF Strip Picker OK for DC: Cardiology and Hospitalist Discharge Order = DC NOW: Discharge Order (Routine); Ordered 08/05/25 Ordered By: Gavino Edwards Referrals: Evy Morales MD [Primary Care Provider, Family Practice] Discharge Diet: Cardiac and Low Cholesterol Discharge Activity: Increase activity as tolerated Patient Instructions: Patient Portal & Sparkle Instructions Activity Restrictions/Additional Instructions: Your heart catheterization did not show any new blockages. It is recommended to increase the antianginal medications. This would be the isosorbide mononitrate dose from 30-60 mg. We also increased your losartan dose from 25-50 mg for your blood pressure. And lastly your atorvastatin was increased from 40 mg to 80 at night before bed. Discharge Attestations Time Spent in Discharge Care*: greater than 30 min Quality Metrics Clinical Quality Measures [ No reported AMI, CVA or VTE this stay] Coding Level of Care Code Acute Code for Chg Fwd Diagnoses Unstable angina I20.0 Coronary artery disease I25.10 Nicotine dependence, cigarettes, in remission F17.211 Ischemic cardiomyopathy I25.5 S/P coronary artery stent placement Z95.5
--- NOTE | 2025-08-05 17:49 | PC.NURSE ---
return from cardiac shipyard laborer via bed at 1555.report received.pt is alert and awake and oriented x4.denies pain at present.sr on monitor.right wrist with tr band on and inflated.right hand is warm to touch and with brisk capillary refill.palpable radial pulse noted istal to tr band.no hematoma noted.pt instructed in activity restrictions s/p radial artery procedure and instructed to notify staff for any bleeding,pain,sob,numbness,dizziness,or for any concerns at all.pt verb understanding of instructions
[2025-08-05] MEDS: pantoprazole 40 mg SDV IVP (20:16)
--- NOTE | 2025-08-05 20:25 | PC.NURSE ---
TR band deflated, at this time no evidence of hematoma or oozing from site. Patient up with in rajan. Educated patient on signs and symptoms to report.
--- NOTE | 2025-08-05 22:21 | PC.NURSE ---
Patient discharged around 2148. TR band had been removed for an hour and transparent dressing applied. Education regarding post cath care and chest pain provided. Patient left unit via w/c and waiting outside in vehicle.
== END 2025-08-05 21:39 | disposition home or self-care (01) | DRG 287 ==
LOC: ER 17:28 → ER IP 18:48 → CSU 08-04 01:49 → ER IP 08-04 16:55
PROVIDERS: Internal Medicine; Internal Medicine Cardiovascular Disease; Physician Assistant; Admitting Provider Student in an Organized Health Care Education/Training Program; Emergency Provider Emergency Medicine; PCP Family Medicine; Visit Provider Internal Medicine
PROC: 4A023N7 Measurement of Cardiac Sampling and Pressure, Left Heart, Percutaneous Approach (ICD-10-PCS; principal; 2025-08-05 14:05)
DX: I25.110 Atherosclerotic heart disease of native coronary artery with unstable angina pectoris (principal); I25.5 Ischemic cardiomyopathy; I10 Essential (primary) hypertension; E78.5 Hyperlipidemia, unspecified; K21.9 Gastro-esophageal reflux disease without esophagitis; F17.211 Nicotine dependence, cigarettes, in remission; J43.2 Centrilobular emphysema; Z95.5 Presence of coronary angioplasty implant and graft; Z79.02 Long term (current) use of antithrombotics/antiplatelets; Z79.82 Long term (current) use of aspirin
CPT/HCPCS: 36415; 71045; 80053; 80061; 83036; 83605; 83735; 83880; 84100; 84145; 84443; 84484; 85025; 93005; 93308; 93458; 94664; 96372; 96374; 96375; 99152; 99153; 99285; C1769; C1887; C1894; J1200; J1644; J1650; J2250; J2270; J2405; J2470; J3010; J3490; J7030; J9999; Q9967

== ENCOUNTER 2025-09-17 11:02 | Outpatient (CLI) | payer OTHER, SELFPAY ==
[2025-09-17 11:49] LABS: Hematocrit 39.6 % (36-47); Hemoglobin 13.20 g/dL (11.27-16.99); Mean Corpuscular HGB Conc 33.3 g/dL (30-55); Mean Corpuscular Hemoglobin 32.0 pg (27-33); Mean Corpuscular Volume 96.1 fl (85-98); Nucleated Red Blood Cells % 0 %; Platelet Count 219 10^3/cmm (157-399); Red Blood Count 4.12 10^6/uL (3.85-5.65); White Blood Count 9.05 10^3/uL (3.29-11.43)
[2025-09-17 13:04] LABS: Alanine Aminotransferase 36 U/L (0-33); Albumin Level 4.4 g/dL (3.5-5.2); Alkaline Phosphatase 129 U/L (35-105); Anion Gap 13.0 (5-19); Aspartate Amino Transferase 37 U/L (0-32); Blood Urea Nitrogen 11 mg/dL (6-20); Calcium 9.0 mg/dL (8.5-10.5); Carbon Dioxide 26 mmol/L (22-29); Chloride 107 mmol/L (98-107); Cholesterol 170 mg/dL (0-200); Globulin 3.0 g/dL (1.3-4.6); Glucose 96 mg/dL (65-115); HDL Cholesterol 46 mg/dL (60-100); Osmolality Calculated 293 mOsm/kg (285-295); Potassium 4.0 mmol/L (3.5-5.1); Sodium 142 mmol/L (136-145); Total Protein 7.4 g/dL (6.6-8.7); Triglycerides 122 mg/dL (0-150)
== END 2025-09-17 11:03 | disposition home or self-care (01) ==
PROVIDERS: PCP Family Medicine; Visit Provider Nurse Practitioner Family
DX: I95.2 Hypotension due to drugs (principal); I65.23 Occlusion and stenosis of bilateral carotid arteries
CPT/HCPCS: 36415; 80053; 80061; 85025